=== PATIENT | female | born 2000 | race Caucasian/White ===

== ENCOUNTER 2024-03-19 07:37 | Observation (INO) ==
--- OUTSIDE RECORDS SUMMARY | 2024-03-19 07:47 | External Medical Summary | Summary of Care ---
Author Name Unknown Organization [facility] Address [address] [facility] [place] [address] Phone [phone] Care Team Providers Care Prosthetic Makeup Designer Name Role Phone Unavailable Primary Care Provider Unavailabl e Reason for Referral * Precert (Diagnostic Medical) (Within 10 days (routine)) - Authorized Specialty Diagnoses / Procedures Referred By Contac t Referred To Contact Cardiac Studies Diagnoses Abnormal EKG Procedures ECHO, COMPLETE (2D), TRANS-THORACIC Rosemarie Perez PA-C [address] [employer] [place] [address] Referral ID Status Reason Start Date Expiration Date V isits Requested Visits Authorized [id number] Authorized Precert 03/09/2024 999 999 Reason for Visit * Reason Onset Date Comments Test Results 03/09/2024 Encounter Details Date Type Department Care Team (Late st Contact Info) Description 03/09/2024 Telephone Gynecology/Obstetrics [facility] [address] [place] [address] Rosemarie Perez PA-C [address] [place] [address] Test Results Allergies No known active allergiesdocumented as of this encounter (statuses as of 03/12/2024) Medications Medication Sig Dispensed Refills Start Date End Date Status 28-0.8 MG Oral Tablet Take by mouth. Active Iron-Vitamin C 65-125 MG Oral Tablet (Vitron C)Indications:Antepart um anemia complicating Take 1 Tablet by mouth in the morning and 1 Tablet before bedtime. 60 Tablet 3 12/28/2023 Active documented as of this encounter (statuses as of 03/12/2024) Active Problems Problem Noted Date Diagnosed Date EKG abnormality 03/09/2024 Overview: EKG 03/08/2024 d/t dizziness showed on-specific T wave abnormality CONCLUSIONS: Normal sinus rhythm Nonspecific T wave abnormality Abnormal ECG No previous ECGs available Ventricular Rate: 92 Atrial Rate: 92 ME Interval: 130 QRS Duration: 84 QT/QTc: 350/432 ms P-R-T Hungry Horse: 33 : 49 : -8 degrees Ask a doc to Cardiology sent. Following recommendations: The minor nonspecific T wave abnormalities on the ECG of 03/08/24 do not, in and of themselves, warrant any specific follow up. However out of abundance of caution would get echocardiogram. Awaiting patient response to order echocardiogram in follow up. GBS (group B streptococcus) infection 03/02/2024 Overview: GBS positive 02/2024 Antepartum anemia complicating 024 Overview: Hgb 11.5 at 27 weeks. Started Vitron C BID. CBC at 32 weeks Abnormal glucose tolerance in 12/28/19 24 Overview: Failed 1 hour gtt Needs 3 hour gtt screening for malformation using ultra sonics 11/11/2023 Last Assessment & Plan: She presents for a anatomy survey and echocardiogram. Her fiance has a history of Marfan syndrome and she is s/p genetic counseling (please see separate documentation for additional information). Labs reviewed: -- cffDNA low risk for aneuploidy We reviewed the results of today's ultrasound. The estimated weight is appropriate for gestational age. The visualized anatomy is unremarkable in appearance. There are no cardiac abnormalities appreciated in the images obtained. The amniotic fluid amount appears normal. We discussed that ultrasound is not able to identify all anomalies, but it is reassuring that no anomalies were seen today. We reviewed that there are some case reports of third trimester cardiac findings associated with Marfan syndrome, but otherwise diagnosis centers around genetic testing, which she plans to defer to after delivery. We will plan a follow-up ultrasound at about 35 weeks. Rh negative status during 08/16/2023 Normal 08/15/2023 Family history of Marfan syndrome 08/15/2023 Overview: FOB, met with genetics. MFM referral initiated. - Patient elected NIPT/cffDNA screening. - CVS and amniocentesis were declined. - Patient is interested in having her child tested for Marfan syndrome after through the pediatric genetics clinic. - Recommend anatomy ultrasound around 20 weeks gestation. This is not yet scheduled. - Recommend echocardiogram due to the association of cardiac defects with Marfan syndrome. - Recommend the patient be offered MSAFP-only screening through the educational advisor's office, at 15-22 weeks gestation (preferably 15-18 weeks), to help screen for open neural tube defects. - Yari declines carrier screening today. Last Assessment & Plan: The anatomy that was visualized appears unremarkable and the overall estimated weight is consistent with the 32nd percentile for the gestational age. Idiopathic scoliosis 01/02/2015 Estimated Date of Delivery Comme nts Yes 03/22/2024 Based on last me nstrual period of 06/16/2023 (Approximate) documented as of this encounter (statuses as of 03/12/2024) Immunizations Name Administration Dates Next Due DTP Vaccine 01/26/2006, 2,04/19/2001,02/15,2000 HIB PRP-OMP, 3 dose (Pedvax) 09/25/2001,02/16/20 01,2000 Hepatitis B, 0-19 yrs 09/25/2001,02/15/2001,09/05 IPV - Polio Virus Vaccine (Inact) 2005,01/10/2002,02/15/2001,12/20 MMR - Measles/Mumps/Rubella Vaccine 01/26/2006,0 09/25/2001 Meningococcal Conjugate Vacc ine (Menactra/Menveo) 04/24/2013 Pneumococcal Conjugate Vacc, 13 Valent (Prevnar) 01/08/2003,04/19/2001,02/15/2001,12/20 Seasonal Influenza, PF, 6 M & above, IM , (FluLaval or Fluzone) 04/05/2023 TDAP (age 10 and older)(Boostrix) 12/26/2023, Varicella Vaccine (Chicken Pox) 01/29/2011,09/25 documented as of this encounter Social History Tobacco Use Types Packs/Day Years Used Date Smoking Tobacco: Never Smokeless Tobacco: Never Alcohol Use Standard Drinks/Week Comments Not Currently 0 (1 standard drink = 0.6 oz pur e alcohol) occ Hunger Vital Sign Answer Date Recorded Within the past 12 months, y ou worried that your food would run out before you got the money to buy more. Never true 02/17/20 24 Within the past 12 months, t he food you bought just didn't last and you didn't have money to get more. Never true 02/17/2024 [place] Depression Scale Answer Date Recorded [place] Depression Scale Total 0 02/17/2024 The thought of harming myself has occurred to me . Never 02/17/2024 Childcare Answer Date Recorded Do you feel overwhelmed with taking care of a child, family member or friend? No 02/17/2024 Does your family need help f inding childcare? (Household - for ages 0-17 years) Not on file 02/17/2024 Clothing Answer Date Recorded Have you been unable to get clothing when it was really needed? No 02/17/2024 Is your family able to get c lothes or diapers when needed? (Household - for ages 0-17 years) Not on file 02/17/2024 Personal Safety Answer Date Recorded Do you feel unsafe or have concerns for your saf ety? No 02/17/2024 Do you have concerns for you r family's safety? (Household - for ages 0-17 years) Not on file 02/17/2024 Utilities Answer Date Recorded Do you have trouble paying y our heating, water, or electric bill? No 02/17/2024 Is your family able to pay t he heat, water, or electric bill? (Household - for ages 0-17 years) Not on file 02/17/2024 Does your family have access to good internet? (Household - for ages 0-17 years) Not on file 02/17/2024 Employment Status Answer Date Recorded Are you unemployed or without regular income? No 02/17/2024 Does the household have a re gular source of income? (Household - for ages 0-17 years) Not on file 02/17/2024 Social Connections Answer Date Recorded How often do you feel lonely or isolated from th ose around you? Never 02/17/2024 Financial Resource Strain Answer Date R ecorded Do you have any trouble payi ng for your medications, or do you think you might in the future? No 02/17/2024 Does your family have troubl e paying for medicine? (Household - for ages 0-17 years) Not on file 02/17/2024 Transportation Needs Answer Date Record ed Do you have trouble getting a ride to medical visits or work? (Adult - for ages 18 years and over) Not on file 02/17/2024 Does your family have a hard time getting a ride to doctors visits? (Household - for ages 0-17 years) Not on file 02/17/2024 Has lack of transportation k ept you from medical appointments, meetings, work, or from getting things needed for daily living? Check all that apply. No 02/17/2024 Do you (or your family) have trouble finding or paying for a ride (transportation)? (Household - for ages 0-17 years) Not on file 02/17/2024 Housing Stability Answer Date Recorded Do you currently live in a s helter or have no steady place to sleep at night? No 02/17/2024 Do you think you are at risk of becoming homeless? (Adult - for ages 18 years and over) Not on file 02/17/2024 Does your family worry about paying for your home or becoming homeless? (Household - for ages 0-17 years) Not on file 0 02/17/2024 Are you homeless or worried that you might be in the future? No 02/17/2024 Are you (or your family) kristen eless or worried that you might be in the future? (Household - for ages 0-17 years) Not on file Food Insecurity Answer Date Recorded Do you need food for this week? No 02/17/2024 Are you able to get enough f ood for your family? (Household - for ages 0-17 years) Not on file 02/17/2024 Does your family need food t his week? (Household - for ages 0-17 years) Not on file 02/17/2024 Do you always have enough fo od for your family? (Household - for ages 0-17 years) Not on file 02/17/2024 Estimated Date of Delivery Comme nts Yes 03/22/2024 Based on last me nstrual period of 06/16/2023 (Approximate) Sex and Gender Information Value Date Recorded Sex Assigned at Female 01/18/2023 11:30 AM EDT Gender Identity Female 01/18/2023 11:30 AM EDT Sexual Orientation Straight 01/18/2023 11 :30 AM EDT Job Start Date Occupation Industry Not on file Not on file Not on file documented as of this encounter Miscellaneous Notes * Telephone Encounter - Jayme Blair OSA - 03/12/2024 9:08 AM EDT Patient is scheduled on: 03/13/2024 Status: Evaristo Time: 2:00 PM Length: 60 Visit Type: ECHOCARDIOGRAM [[id number]] Reg Status: Verified Copay: $0.00 Provider: DILIP ALVARADO * Telephone Encounter - Jayme Blair OSA - 03/09/2024 1:19 PM EDT Please advise, patient is being induced on 03/19, and the provider is requesting an ECHO before. Please advise, thank you. * Telephone Encounter - Sadaf Figueroa OSA - 03/09/2024 1:15 PM EDT Nothing pulling for me until 03-19 and patient is scheduled to deliver that day. Please assist in asooner appointment time if able. Thank you! * Telephone Encounter - Rosemarie Perez PA-C - 03/09/2024 12:53 PM EDT Sadaf, please assist in scheduling patient for ECHO as soon as possible. Should have prior to delivery. Currently scheduled for IOL 03/19/2024. * Telephone Encounter - Gisela Duarte LPN - 03/09/2024 12:49 PM EDT Pt called back and said she is agreeable to do the echo. * Telephone Encounter - Gisela Duarte LPN - 03/09/2024 12:33 PM EDT Called pt lm to return call * Telephone Encounter - Rosemarie Perez PA-C - 03/09/2024 12:21 PM EDT Please let patient know that her EKG showed normal rhythm but did return abnormal d/t non-specific T wave abnormality. I reach out to Cardiology they stated that this specific abnormality in itself does not warrant anyspecific follow up but did recommend a echocardiogram out of abundance of caution ahead of delivery. If she is agreeable to this, will place order for ECHO. Rosemarie Perez PA-C documented in this encounter Plan of Treatment Upcoming Encounters Date Type Department Care Team (Late st Contact Info) Description 03/13/2024 2:00 PM EDT [facility] [address] [place] [id number] 03/16/2024 11:30 AM EDT Office Visit Gynecology/Obstetrics Dary Velazquez [address] [facility] [place] [address] Leonardo Xavier MD [address] [place] [address] Scheduled Orders Name Type Priority Associated Diagnoses Orde r Schedule ECHO, COMPLETE (2D), TRANS-THORACIC Echocardiology Routine Abnormal EKG Expected: 03/09/2024, Expires: 04/09/2026 Health Maintenance Due Date Last Done Comments Depression Screening 2012 HPV (Gardasil) Vaccine (1 - 3-dose series) 09/22/2015 COVID-19 Vaccine ( - 2023-2 5 season) 2024 Influenza Vaccine (FLU shot) (#1) 2024 023 Gonorrhea / Chlamydia Screen 08/14/2024 08/15/2023, 11/29/2022 Pap Smear 08/14/2026 08/15/2023 DTap/Tdap Vaccines (8 - Td o r Tdap) 12/25/2033 12/26/2023, 04/24/2013, 01/26/2006, Additional history exists Hepatitis B Vaccine Completed 09/25/2001, 02/15/2001, 2000 Pneumococcal Vaccine: Pediat rics (0 to 5 Years) and At-Risk Patients (6 to 64 Years) Completed 01/08/2003, 04/19/2001, 02/15/2001, Additional history exists MENINGOCOCCAL (MENACTRA/MENVEO) Completed 7, 04/24/2013 documented as of this encounter Medical Devices Not on filedocumented as of this encounter Visit Diagnoses Diagnosis Abnormal EKG- Primary Nonspecific abnormal electrocardiogram (ECG) (EKG) documented in this encounter
--- OUTSIDE RECORDS SUMMARY | 2024-03-19 07:47 | External Medical Summary | Summary of Care ---
Author Name Unknown Organization [facility] Address [address] [facility] [place] [address] Phone [phone] Care Team Providers Care Solder Making Laborer Name Role Phone Unavailable Primary Care Provider Unavailabl e Reason for Visit * Reason Comments Return Visit Encounter Details Date Type Department Care Team (Late st Contact Info) Description 03/07/2024 9:45 AM EDT Office Visit Gynecology/Obstetric s Dary Velazquez [address] [place] [address] Kelly Ureña CRNP [address] [place] [address] Normal in third trimester*; Family history of Marfan syndrome; Rh negative, antepartum; screening for malformation using ultrasonics; Antepartum anemia complicating ; Abnormal glucose tolerance in ; GBS (group B streptococcus) infection Allergies No known active allergiesdocumented as of this encounter (statuses as of 03/07/2024) Medications Medication Sig Dispensed Refills Start Date End Date Status 28-0.8 MG Oral Tablet Take by mouth. Active Iron-Vitamin C 65-125 MG Oral Tablet (Vitron C)Indications:Antepart um anemia complicating Take 1 Tablet by mouth in the morning and 1 Tablet before bedtime. 60 Tablet 3 12/28/2023 Active documented as of this encounter (statuses as of 03/07/2024) Active Problems Problem Noted Date Diagnosed Date GBS (group B streptococcus) infection 03/02/2024 Overview: [...] patient be offered MSAFP-only screening through the environmental manager's office, at 15-22 weeks gestation (preferably 15-18 [...] as of this encounter (statuses as of 03/07/2024) Immunizations Name Administration Dates Next Due DTP [...] money to get more. Never true 02/17/2024 [place] Depression Scale Answer Date Recorded [place] Depression Scale Total 0 02/17/2024 The thought [...] 02/17/2024 Does the household have a re lar source of income? (Household - for ages [...] on file documented as of this encounter Last Filed Vital Signs Vital Sign Reading Time Taken Comments Blood Pressure 120/86 03/07/2024 9:36 AM EDT Pulse - - Temperature - - Respiratory Rate - - Oxygen Saturation - - Inhaled Oxygen Concentration - - Weight 74.6 kg (164 lb 6.4 oz) 03/07/2024 9:36 A M EDT Height - - Body Mass Index 28.22 02/29/2024 11:07 AM EDT documented in this encounter Progress Notes * Kelly Ureña CRNP - 03/07/2024 9:54 AM EDT 37w6d Has had intermittent contractions the past 2 days. Not timeable. Suspect she is not well hydrated, as she states she doesn't really like water and eats ice all day long for hydration. Asking for cervical check. Baby is active. Denies bleeding or LOF. Size>dates. Has followed with MFM and has had normal growth. Last week had growth u/s ordered, is scheduled for tomorrow. Occupational Health Specialist Documentation Provider requested textile supervisor. Name of textile supervisor: Maggie * Maggie Rivers CMA - 03/07/2024 9:36 AM EDT 37w6d + contractions, started Tuesday. Worsened yesterday. Still clemencia today. + nausea/headache Increase in discharge Swelling in both ankles Requesting cervical check today documented in this encounter Plan of Treatment Upcoming Encounters Date Type Department Care Team (Late st Contact Info) Description 03/08/2024 9:15 AM EDT Cardiac Studies Cardiac Studies, [place] [address] [place] [address] 03/08/2024 9:45 AM EDT Imaging Radiology [facility] 2nd Floor, [place] [address] [place] [address] 03/15/2024 2:15 PM EDT Office Visit Gynecology/Obstetrics [facility] [place] [address] Kelly Ureña CRNP [address] [place] [address] Health Maintenance Due Date Last Done Comments Depression Screening 2012 HPV (Gardasil) Vaccine (1 - 3-dose series) 09/22/2015 COVID-19 Vaccine (2023-2 5 season) 2024 Influenza Vaccine (FLU shot) [...] as of this encounter Visit Diagnoses Diagnosis Normal in third trimester- Primary Family history of Marfan syndrome Rh negative, antepartum Rhesus isoimmunization affecting management of mother, antepartum condition screening for malformation using ultrasonics Encounter for routine screening for malformation using ultrasonics Antepartum anemia complicating Anemia, antepartum Abnormal glucose tolerance in GBS (group B streptococcus) infection Streptococcus infection in conditions classified elsewhere and of unspecified site, group B documented in this encounter
--- OUTSIDE RECORDS SUMMARY | 2024-03-19 07:47 | External Medical Summary | Summary of Care ---
Author Name Unknown Organization [facility] Address [address] [place] [address] Phone [phone] Care Team Providers Care Sky Line Yarder Name Role Phone Unavailable Primary Care Provider Unavailabl e Reason for Visit * Reason Onset Date Comments Industrial Recruiter Documentation 08/22/2023 Healthy Activity Advance Directive Encounter Details Date Type Department Care Team (Late st Contact Info) Description 08/22/2023 Telephone Care Management, [place] [address] [place] [address] Marlyn Kathleen, [facility] Industrial Recruiter Documentation (2023 Health... Allergies No known active allergiesdocumented as of this encounter (statuses as of 02/24/2024) Medications Medication Sig Dispensed Refills Start Date End Date Status 28-0.8 MG Oral Tablet Take by mouth. Active documented as of this encounter (statuses as of 02/24/2024) Active Problems Problem Noted Date Diagnosed Date Antepartum anemia complicating 024 Overview: Hgb 11.5 [...] patient be offered MSAFP-only screening through the tax specialist's office, at 15-22 weeks gestation (preferably 15-18 [...] as of this encounter (statuses as of 02/24/2024) Immunizations Name Administration Dates Next Due DTP Vaccine 01/26/2006, 2,04/19/2001,02/15,2000 HIB PRP-OMP, 3 dose (Pedvax) 09/25/2001,02/16/20 01,2000 Hepatitis B, 0-19 yrs 09/25/2001,02/15/2001,2 12/2000 IPV - Polio Virus Vaccine (Inact) 2005,01/10/2002,02/15/2001,12/20 [...] money to get more. Never true 02/17/2024 [place] Depression Scale Answer Date Recorded [place] Depression Scale Total 0 02/17/2024 The thought [...] as of this encounter Miscellaneous Notes * ACP (Advance Care Planning) - Marlyn Kathleen, SHAHEED - 08/22/2023 8:28 AM EDT Images from the original note were not included. Advance Care Planning Patient-centered Communication 08/22/2023 The patient/surrogate voluntarily agreed to participate in advance care planning discussion. Addendum 01/17/24: Yari completed a 2023 Healthy Activity/Advance Directive questionnaire and CHANGED her preference for Health Care Drain Tile Machine Operator from her father to her FIANCE, KUSHAL EMILIA stating "I believe he would do what is in my best interest". I have reached out to Yari via email toencourage her to document this in a Durable Health Care Power of Color Coater because under [place] Law, herparents would be her surrogate decision makers and NOT her fiance. Addendum 02/24/24: Yari completed and filed a and 2023 Healthy Activity/Advance Directive questionnaire and noted her father in one, and her fiancee in the other as her preference for HealthCare Drain Tile Machine Operator. I have reached out directly to Yari to assist her in completing an Advance Directive to properly and legally identify her preference. Decisions Additional Comments Synopsis SmartLink Most Recent Value Past ~10 years 08/22/2023 08:29 Additional Comments Additional Comments: Patient completed 2023 [employer] Advance Directive questionnaire. Responses entered below. Patient prefers Franco Shen, as Health Care Drain Tile Machine Operator. Patient willdownload Durable Health Care Power of Color Coater form independently . Video link provided with instructions on how to complete document. 08/22/2023 Patient completed 2023 [employer] Advance Directive questionnaire. Responses entered below. Patient prefers Franco Shen, as Health Care Drain Tile Machine Operator. Patient will download Durable Health Care Power of Color Coater form independently . Video link provided with instructions on how to complete document. Discerning What Matters Most to the Patient: Synopsis SmartLink Most Recent Value Past ~10 years 08/22/2023 08:28 Discerning What Matters Most to the Patient The patient's PRIOR EXPERIENCES: Addendum 02/24/24: "I want extreme measures to be taken" 08/22/2023 Addendum 02/24/24: "I want extreme measures to be taken" The patient considers these as 'UNACCEPTABLE OUTCOMES': Other (define below) 08/22/2023 Other (define below) Other, patient defines as: "Not being able to bathe, feed, or take care of myself" Addendum 01/17/24added: "not being able to breath on my own without life support" Addendum 02/24/24: "Not being able to talk or make my needs known." 08/22/2023 "Not being able to bathe, feed, or take care of myself" Addendum 01/17/24 added: "not being able to breath on my own without life support" Addendum 02/24/24: "Not being able to talk or make my needs known." Source: Content from [employer]pecting Choices Program Aligning Care With What Matters Most: No data to display Rationale for Decisions Source: Content from [employer] Cho[employer] Marlyn Kathleen LCSW documented in this encounter Plan of Treatment Upcoming Encounters Date Type Department Care Team (Late st Contact Info) Description 02/29/2024 11:30 AM EDT Office Visit Gynecology/Obstetrics [facility] [address] [place] [address] Rosemarie Perez PA-C [address] [place] [address] 03/09/2024 4:30 PM EDT Office Visit Gynecology/Obstetrics [facility] [address] [place] [address] Rosemarie Perez PA-C [address] [place] [address] Health Maintenance Due Date Last Done Comments Depression Screening 2012 HPV (Gardasil) Vaccine (1 - 3-dose series) 09/22/2015 COVID-19 Vaccine ( season) 2024 Influenza Vaccine (FLU shot) (#1) 2024 04/05/2023 Gonorrhea / Chlamydia Screen 08/14/2024 08/15/2023, 11/29/2022 Pap Smear 08/14/2026 08/15/2023 DTap/Tdap Vaccines (8 - Td or Tdap) 12/25/2033 12/26/2023, 04/24/2013, 01/26/2006, Additional history exists Hepatitis B Vaccine Completed 09/25/2001, 02/15/2001, 2000 Pneumococcal Vaccine: Pediatrics (0 to 5 Years) and At-Risk Patients (6 to 64 Years) Completed 01/08/2003, 04/19/2001, 02/15/2001, Additional history exists MENINGOCOCCAL (MENACTRA/MENVEO) Aged Out 04/24/2013 No longer eligible based on patient's age to complete this topic documented as of this encounter Medical Devices Not on filedocumented as of this encounter
--- OUTSIDE RECORDS SUMMARY | 2024-03-19 07:47 | External Medical Summary | Summary of Care ---
Author Name Unknown Organization [facility] Address [address] [facility] [place] [address] Phone [phone] Care Team Providers Care Advertising Agency Manager Name Role Phone Unavailable Primary Care Provider Unavailabl e Reason for Visit * Reason Comments Return Visit Encounter Details Date Type Department Care Team (Late st Contact Info) Description 02/29/2024 11:30 AM EDT Office Visit Gynecology/Obstetric s Dary Velazquez [address] [place] [address] Rosemarie Perez PA-C [address] [place] [address] Normal in third trimester*; Family history of Marfan syndrome; Rh negative status during in third trimester; screening for malformation using ultrasonics; Antepartum anemia complicating ; Abnormal glucose tolerance in ; Dizziness; Uterine size date discrepancy Allergies No known active allergiesdocumented as of this encounter (statuses as of 02/29/2024) Medications Medication Sig Dispensed Refills Start Date End Date Status 28-0.8 MG Oral Tablet Take by mouth. Active Iron-Vitamin C 65-125 MG Oral Tablet (Vitron C)Indications:Antepart um anemia complicating Take 1 Tablet by mouth in the morning and 1 Tablet before bedtime. 60 Tablet 3 12/28/2023 Active documented as of this encounter (statuses as of 02/29/2024) Active Problems Problem Noted Date Diagnosed Date Antepartum anemia complicating 024 Overview: Hgb 11.5 at 27 weeks. Started Vitron C BID. CBC at 32 weeks Abnormal glucose tolerance in 12/28/19 Overview: Failed 1 hour gtt Needs 3 [...] patient be offered MSAFP-only screening through the starter mechanic's office, at 15-22 weeks gestation (preferably 15-18 [...] as of this encounter (statuses as of 02/29/2024) Immunizations Name Administration Dates Next Due DTP Vaccine 01/26/2006, 2,04/19/2001,02/15,2000 HIB PRP-OMP, 3 dose (Pedvax) 09/25/2001,02/16/20,2000 Hepatitis B, 0-19 yrs 09/25/2001,02/15/2001,09/05 IPV - [...] money to get more. Never true 02/17/2024 Fletcher Depression Scale Answer Date Recorded Fletcher Depression Scale Total 0 02/17/2024 The thought [...] Sign Reading Time Taken Comments Blood Pressure 122/78 02/29/2024 11:07 AM EDT Pulse - - Temperature - - Respiratory Rate - - Oxygen Saturation - - Inhaled Oxygen Concentration - - Weight 73 kg (161 lb) 02/29/2024 11:07 AM EDT Height 162.6 cm (5' 4") 02/29/2024 11:07 AM EDT Body Mass Index 27.64 02/29/2024 11:07 AM EDT documented in this encounter Progress Notes * Rosemarie Perez PA-C - 02/29/2024 12:08 PM EDT 36w6d Due for GBS collected. Denies VB, LOF. Having BH contractions. Pos fm. Episodes of dizziness, mostly with movement. Denies syncope, presyncope, chest pain or SOB. Feels well hydrated. Anemic Hgb 11.1 as of a month ago. On PO iron. No known cardiac or thyroid issues. TSHnormal as of 12/2023. BP 122/78 | Ht 1.626 m (5' 4") | Wt 73 kg (161 lb) | LMP 06/16/2023 (Approximate) | BMI 27.64 kg/m | BSA 1.82 m Heart: RR no murmurs Lungs: clear to auscultation bilaterally Will order BMP, Magnesium, EKG -- advised follow up with PCP, pt agreeable. Push fluids. ER precautions in meantime. S>D, had growth with MFM 02/15 -- 32%ile. Repeat growth ordered. RTC in 1 week Rosemarie Perez PA-C documented in this encounter Nursing Notes * Eliana Khan LPN - 02/29/2024 11:07 AM EDT 36w6d GBS today Headaches, random episodes of dizziness several times a day. documented in this encounter Plan of Treatment Upcoming Encounters Date Type Department Care Team (Late st Contact Info) Description 03/07/2024 9:45 AM EDT Office Visit Gynecology/Obstetrics Dary Velazquez [address] [place] [address] Kelly Ureña CRNP [address] [place] [address] 03/08/2024 9:15 AM EDT Cardiac Studies Cardiac Studies, [facility] [address] [facility] [place] [address] 03/08/2024 9:45 AM EDT Imaging Radiology [facility] [address] [place] [address] Pending Results Name Type Priority Associated Diagnoses Date /Time GROUP B STREP CULTURE/PCR Lab Routine Normal in third trimester 02/29/2024 11:53 AM EDT Scheduled Orders Name Type Priority Associated Diagnoses Orde r Schedule BASIC METABOLIC PANEL Lab Routine Dizziness Expected: 02/29/2024, Expires: 02/28/2025 MAGNESIUM Lab Routine Dizziness Expected: 02/29/2024, Expires: 02/28/2025 PREG FOLLOW-UP EACH FETUS Medical Imaging Routine Uterine size date discrepancy Expected: 02/29/2024, Expires: 03/30/2025 EKG EKG Routine Dizziness Expected: 02/29/2024 (Approximate), Expires: 03/30/2025 Health Maintenance Due Date Last Done Comments [...] Primary Family history of Marfan syndrome Rh negative status during in third trimester screening for malformation using ultrasonics Encounter for routine screening for malformation using ultrasonics Antepartum anemia complicating Anemia, antepartum Abnormal glucose tolerance in Dizziness Dizziness and giddiness Uterine size date discrepancy Uterine size date discrepancy, antepartum condition or complication documented in this encounter
--- OUTSIDE RECORDS SUMMARY | 2024-03-19 07:47 | External Medical Summary | Summary of Care ---
Author Name Unknown Organization [facility] Address [address] [place] [address] Phone [phone] Care Team Providers Care Auto Emissions Technician Name Role Phone Unavailable Primary Care Provider Unavailabl e Reason for Visit * Reason Comments Outpatient Testing Encounter Details Date Type Department Care Team (Late st Contact Info) Description 02/29/2024 1:00 PM EDT Laboratory Laboratory, [facility] [address] [place] [address] [facility], Lab [address] [place] [address] Dizziness Allergies No known active allergiesdocumented as of [...] patient be offered MSAFP-only screening through the subsorter's office, at 15-22 weeks gestation (preferably 15-18 [...] (Pedvax) 09/25/2001,02/16/20 01,2000 Hepatitis B, 0-19 yrs 09/25/2001,02/15/2001,0412/2000 IPV - Polio Virus Vaccine (Inact) 2005,01/10/2002,02/15/2001,12/20 [...] money to get more. Never true 02/17/2024 Azalea Depression Scale Answer Date Recorded Azalea Depression Scale Total 0 02/17/2024 The thought [...] No 02/17/2024 Does the household have a [facility]? (Household - for ages [...] on file documented as of this encounter Plan of Treatment Upcoming Encounters Date Type Department Care Team (Late st Contact Info) Description 03/07/2024 9:45 AM EDT Office Visit Gynecology/Obstetrics Dary Velazquez [address] [place] [phone] Kelly Ureña CRNP [address] [place] [address] 03/08/2024 9:15 AM EDT [facility] [address] [place] [address] 03/08/2024 9:45 AM EDT Imaging Radiology [facility] 2nd [facility] [place] [address] [place] [address] Pending Results Name Type Priority Associated Diagnoses Date /Time BASIC METABOLIC PANEL Lab Routine Dizziness 02/29/2024 1:01 PM EDT MAGNESIUM Lab Routine Dizziness 02/29/2024 1:01 PM EDT Health Maintenance Due Date Last Done Comments [...] as of this encounter Visit Diagnoses Diagnosis Dizziness Dizziness and giddiness documented in this encounter
--- OUTSIDE RECORDS SUMMARY | 2024-03-19 07:47 | External Medical Summary | Summary of Care ---
Author Name Unknown Organization [facility] Address [address] [facility] [place] [address] Phone [phone] Care Team Providers Care Transcription Specialist Name Role Phone Unavailable Primary Care Provider Unavailabl e Encounter Details Date Type Department Care Team (Late st Contact Info) Description 03/07/2024 Telephone Gynecology/Obstetrics [facility] [address] [place] [address] Rosemarie Perez PA-C [address] [place] [address] Allergies No known active allergiesdocumented as of [...] at 32 weeks Abnormal glucose tolerance in 07/24/20 24 Overview: Failed 1 hour gtt Needs [...] patient be offered MSAFP-only screening through the costume specialist's office, at 15-22 weeks gestation (preferably [...] money to get more. Never true 02/17/2024 [place] Depression Scale Answer Date Recorded [place] Depression Scale Total 0 02/17/2024 The thought [...] No 02/17/2024 Does the household have a [facility] source of income? (Household - for ages [...] encounter Miscellaneous Notes * Telephone Encounter - Eliana Khan LPN - 03/07/2024 3:05 PM EDT Checked with Rosemarie Watson, as you said estimates may not be the best but it is fine to leave her as scheduled for tomorrow. * Telephone Encounter - Rosemarie Perez PA-C - 03/07/2024 2:59 PM EDT She was measuring ahead and appears from OV when seeing Kelly today still measuring ahead. Can you touch base with Rosemarie and ask if unable to complete growth d/t 3 weeks since last? I understand if estimates may not be best, but if impossible can hold on growth for now. If so, could we at least checkAFI and ensure polyhydramnios not cause for S>D. Thanks! Rosemarie Perez PA-C * Telephone Encounter - Eliana Khan LPN - 03/07/2024 2:06 PM EDT Rosemarie, okay to reschedule for next week? * Telephone Encounter - Eliana Khan LPN - 03/07/2024 2:05 PM EDT ----- Message from Rosemarie Armstrong sent at 03/07/2024 1:49 PM EDT ----- This pt is on my schedule for a growth u/s for tomorrow. It is only 3 wks since her prior growth u/s. Is it possible to have her reschedule for next week for more accurate results? Rosemarie ordered the u/s but she is not in the office today or tomorrow. Rosemarie documented in this encounter Plan of Treatment Upcoming Encounters Date Type Department Care Team (Late st Contact Info) Description 03/08/2024 9:15 AM EDT Cardiac Studies Cardiac Studies, [facility] [address] [facility] [place] [address] 03/08/2024 9:45 AM EDT Imaging Radiology [facility] 2nd [facility] [place] [address] [place] [address] 03/15/2024 2:15 PM EDT Office Visit Gynecology/Obstetrics Dary Velazquez [address] [place] [address] Kelly Ureña CRNP [address] [place] [address] Health Maintenance Due Date Last Done Comments [...]
--- OUTSIDE RECORDS SUMMARY | 2024-03-19 07:47 | External Medical Summary ---
Author Name Unknown Address Unknown Organization [id number]:[facility] [facility] [address] [place] [address] Laboratory Report Ordering Provider Test Date Status BRIDGETTE MCFADDEN 02/29/2024 11:53:16 Final Observation Date Value Abnormality Reference (Units ) Status Streptococcus agalactiae DNA [Presence] in Specimen by CAMERON with probe detection 02/29/2024 11:53:16 Positive Abnormal Negative Final Group B Streptococcus detect ed by culture-enhanced PCR (amplified probe). GBS GBSCT - [facility] 02/29/2024 11:53:16 24.8 Final GBS SPCCT - [facility] 02/29/2024 11:53:16 0.0 Final Performing Location LAB[facility]ATORY [facility] - [address] [place] [address]
--- OUTSIDE RECORDS SUMMARY | 2024-03-19 07:47 | External Medical Summary | Summary of Care ---
Author Name Unknown Organization [facility] Address [address] [facility] [place] [address] Phone [phone] Care Team Providers Care Shipping Specialist Name Role Phone Unavailable Primary Care Provider Unavailabl e Reason for Visit * Reason Comments Return Visit Encounter Details Date Type Department Care Team (Late st Contact Info) Description 03/16/2024 11:30 AM EDT Office Visit Gynecology/Obstetric s Dary Velazquez [address] [place] [address] Leonardo Xavier MD [address] [place] [address] Normal in third trimester*; Family history of Marfan syndrome; Rh negative status during in third trimester; screening for malformation using ultrasonics; Antepartum anemia complicating ; Abnormal glucose tolerance in ; GBS (group B streptococcus) infection; EKG abnormality Allergies No known active allergiesdocumented as of this encounter (statuses as of 03/16/2024) Medications Medication Sig Dispensed Refills Start Date End Date Status 28-0.8 MG Oral Tablet Take by mouth. Active Iron-Vitamin C 65-125 MG Oral Tablet (Vitron C)Indications:Antepart um anemia complicating Take 1 Tablet by mouth in the morning and 1 Tablet before bedtime. 60 Tablet 3 12/28/2023 Active documented as of this encounter (statuses as of 03/16/2024) Active Problems Problem Noted Date Diagnosed Date EKG abnormality 03/09/2024 Overview: EKG 03/08/2024 d/t dizziness showed on-specific T wave abnormality CONCLUSIONS: Normal sinus rhythm Nonspecific T wave abnormality Abnormal ECG No previous ECGs available Ventricular Rate: 92 Atrial Rate: 92 [place] Interval: 130 QRS Duration: 84 QT/QTc: 350/432 ms P-R-T [place]: 33 : 49 : -8 degrees Ask a doc to Cardiology sent. Following recommendations: The minor nonspecific T wave abnormalities on the ECG of 03/08/24 do not, in and of themselves, warrant any specific follow up. However out of abundance of caution would get echocardiogram. Echo complete -- normal GBS (group B streptococcus) infection 03/02/2024 Overview: GBS positive 02/2024 Antepartum anemia complicating 024 Overview: Hgb 11.5 at 27 weeks. Started Vitron C BID. CBC at 32 weeks Abnormal glucose tolerance in 12/28/19 24 Overview: Failed 1 hour gtt Needs 3 hour gtt screening for malformation using [employer] 11/11/2023 Last Assessment & Plan: She presents [...] patient be offered MSAFP-only screening through the financial center manager's office, at 15-22 weeks gestation (preferably [...] as of this encounter (statuses as of 03/16/2024) Immunizations Name Administration Dates Next Due DTP [...] money to get more. Never true 02/17/2024 Madison Depression Scale Answer Date Recorded [place] Depression Scale Total 0 02/17/2024 The thought [...] Sign Reading Time Taken Comments Blood Pressure 118/70 03/16/2024 11:16 AM EDT Pulse - - Temperature - - Respiratory Rate - - Oxygen Saturation - - Inhaled Oxygen Concentration - - Weight 73.9 kg (163 lb) 03/16/2024 11:16 AM EDT Height 162.6 cm (5' 4") 03/16/2024 11:16 AM EDT Body Mass Index 27.98 03/16/2024 11:16 AM EDT documented in this encounter Progress Notes * Leonardo Xavier MD - 03/16/2024 11:43 AM EDT Pt doing well No complaint Doing well Evaristo for induction on Tuesday03/19/24 * Gisela Duarte LPN - 03/16/2024 11:17 AM EDT 39w1d Denies any issues documented in this encounter Plan of Treatment Health Maintenance Due Date Last Done Comments [...] elsewhere and of unspecified site, group B EKG abnormality Nonspecific abnormal electrocardiogram (ECG) (EKG) documented in this encounter
--- OUTSIDE RECORDS SUMMARY | 2024-03-19 07:47 | External Medical Summary ---
Author Name Unknown Address Unknown Organization K01:[facility] - [address] [place] [address] Laboratory Report Ordering Provider Test Date Status BRIDGETTE MCFADDEN 02/29/2024 13:01:30 Final Observation Date Value Abnormality Reference (Units ) Status Magnesium 02/29/2024 13:01:30 1.7 1.5-2.6 (m g/dL) Final Performing Location [facility] - [address] [place] [address]
--- OUTSIDE RECORDS SUMMARY | 2024-03-19 07:47 | External Medical Summary ---
Author Name Unknown Address Unknown Organization K01:[facility] [place] - [address] [facility] [address] [facility] [address] Laboratory Report Ordering Provider Test Date Status BRIDGETTE MCFADDEN 02/29/2024 13:01:30 Final Observation Date Value Abnormality Reference (Units ) Status BUN 02/29/2024 13:01:30 7 6-20 (mg/dL) Final Creatinine 02/29/2024 13:01:30 0.7 0.5-1.0 (mg/dL) Final Glomerular filtration rate/1.73 sq M.predicted [Volume Rate/Area] in Serum, Plasma or Blood by Creatinine-based formula (CKD-EPI) 02/29/2024 13:01:30 >90 >=60 (mL/min) Final eGFR is calculated based on the CKD-EPI 2020 equation. Sodium 02/29/2024 13:01:30 138 135-146 (m mol/L) Final Potassium 02/29/2024 13:01:30 4.5 3.5-5.1 (m mol/L) Final Cl 02/29/2024 13:01:30 106 98-107 (mm ol/L) Final CO2 02/29/2024 13:01:30 21 Below low normal 22- 32 (mmol/L) Final Anion gap 02/29/2024 13:01:30 11 7-15 (mmol /L) Final Glucose 02/29/2024 13:01:30 82 70-120 (mg /dL) Final Calcium 02/29/2024 13:01:30 9.5 8.4-10.2 ( mg/dL) Final Performing Location [facility]ORY [facility] [place] - [address] [facility] [address]
--- OUTSIDE RECORDS SUMMARY | 2024-03-19 07:48 | External Medical Summary | Summary of Care ---
Author Name Unknown Organization [facility] Address [address] [facility] [address] Phone [phone] Care Team Providers Care Railroad Baggage Porter Name Role Phone Unavailable Primary Care Provider Unavailabl e Reason for Referral * Evaluate & Treat - Unlimited Visits (Within 3 days (urgent)) - Authorized Specialty Diagnoses / Procedures Referred By Brianne t Referred To Contact Physical Therapy / Physical Medicine And Rehab Diagnoses Back pain affecting , antepartum Ashleigh Garcia CNM [address] [facility] [place] [place] [address] Referral ID Status Reason Start Date Expiration Date Visits Requested Visits Authorized [id number] Authorized Specialty Services Required 01/09/[phone] Question Answer Referral Priority Within 3 days (urgent) Where should this appointment be scheduled? [facility] Reason for Visit * Reason Comments Return Visit Encounter Details Date Type Department Care Team (Late st Contact Info) Description 01/09/2024 9:30 AM EDT Office Visit Gynecology/Obstetric s [facility] [address] [place] [address] Ashleigh Garcia CNM [address] [facility] [place] [id number] Normal intrauterine , antepartum*; Family history of Marfan syndrome; Rh negative, antepartum; screening for malformation using ultrasonics; Antepartum anemia complicating ; Abnormal glucose tolerance in ; Back pain affecting , antepartum Allergies No known active allergiesdocumented as of this encounter (statuses as of 01/09/2024) Medications Medication Sig Dispensed Refills Start Date End Date Status 28-0.8 MG Oral Tablet Take by mouth. Active Nystatin-Triamcinolo ne 966249-5.1 UNIT/GM-% External Cream (Mycolog) Apply topically to affected area 3 times a day. Apply to vulva 15 g 1 12/27/2023 Active Iron-Vitamin C 65-125 MG Oral Tablet (Vitron C)Indications:Antepa rtum anemia complicating Take 1 Tablet by mouth in the morning and 1 Tablet before bedtime. 60 Tablet 3 12/28/2023 Active SendUsToCatchMe! Verio w/Device Kit Use as directed. For testing blood sugars 4 times a day. Fasting, and 3 additional times 1 hour after each meal (breakfast, lunch, dinner). 1 Kit 12/30/2023 Active Volo Broadbanduch VerMileIQ In Vitro Strip (Glucose Blood) For testing blood sugars 4 times a day. Fasting, and 3 additional times 1 hour after each meal (breakfast, lunch, dinner). 100 Strip 12/30/2023 Active Lancets For testing blood sugars 4 times a day. Fasting, and 3 additional times 1 hour after each meal (breakfast, lunch, dinner). 100 Each 12/30/2023 Active documented as of this encounter (statuses as of 01/09/2024) Active Problems Problem Noted Date Diagnosed Date [...] patient be offered MSAFP-only screening through the refrigerated company driver's office, at 15-22 weeks gestation (preferably 15-18 weeks), to help screen for open neural tube defects. - Yari declines carrier screening today. Last Assessment & Plan: She presents for an early assessment. Her fiance has a history of Marfan syndrome and she is s/p genetic counseling (please see separate documentation for additional information). Today's ultrasound notes the following: Single viable intrauterine with biometry consistent with clinical dates. The visualized early anatomy is unremarkable in appearance. Idiopathic scoliosis 01/02/2015 Estimated Date of Delivery Comme nts Yes 03/22/2024 Based on last me nstrual period of 06/16/2023 (Approximate) documented as of this encounter (statuses as of 01/09/2024) Immunizations Name Administration Dates Next Due DTP Vaccine 01/26/2006, 2,04/19/2001,02/15,2000 HIB PRP-OMP, 3 dose (Pedvax) 09/25/2001,09,2000 Hepatitis B, 0-19 yrs 09/25/2001,02/15/2001,09/05 IPV - [...] the money to buy more. Never true 01/19/20 23 Within the past 12 months, t he food you bought just didn't last and you didn't have money to get more. Never true 01/18/2023 Wilsey Depression Scale Answer Date Recorded Last EPDS Total Score Not on file 08/15/2023 The thought of harming myself has occurred to me . Never 08/15/2023 Childcare Answer Date Recorded Do you feel overwhelmed with taking care of a child, family member or friend? No 01/18/2023 Does your family need help f inding childcare? (Household - for ages 0-17 years) Not on file 01/18/2023 Clothing Answer Date Recorded Have you been unable to get clothing when it was really needed? No 01/18/2023 Is your family able to get c lothes or diapers when needed? (Household - for ages 0-17 years) Not on file 01/18/2023 Personal Safety Answer Date Recorded Do you feel unsafe or have concerns for your saf ety? No 01/18/2023 Do you have concerns for you r family's safety? (Household - for ages 0-17 years) Not on file 01/18/2023 Utilities Answer Date Recorded Do you have trouble paying y our heating, water, or electric bill? No 01/18/2023 Is your family able to pay t he heat, water, or electric bill? (Household - for ages 0-17 years) Not on file 01/18/2023 Does your family have access to good internet? (Household - for ages 0-17 years) Not on file 01/18/2023 Employment Status Answer Date Recorded Are you unemployed or without regular income? No 01/18/2023 Does the household have a [facility] source [facility] income? (Household - for ages 0-17 years) Not on file 01/18/2023 Social Connections Answer Date Recorded How often do you feel lonely or isolated from th ose around you? Never 01/18/2023 Financial Resource Strain Answer Date R ecorded Do you have any trouble payi ng for your medications, or do you think you might in the future? No 01/18/2023 Does your family have troubl e paying for medicine? (Household - for ages 0-17 years) Not on file 01/18/2023 Transportation Needs Answer Date Record ed READ ONLY Do you have troubl e getting a ride to medical visits or work? Never True 01/18/2023 Does your family have a hard time getting a ride to doctors visits? (Household - for ages 0-17 years) Not on file 01/18/2023 Has lack of transportation k ept you from medical appointments, meetings, work, or from getting things needed for daily living? Check all that apply. (Adult - for ages 18 years and over) Not on file 01/18/2023 Do you (or your family) have trouble finding or paying for a ride (transportation)? (Household - for ages 0-17 years) Not on file 01/18/2023 Housing Stability Answer Date Recorded Do you currently live in a s helter or have no steady place to sleep at night? No 01/18/2023 READ ONLY Do you think you a re at risk of becoming homeless? No 01/18/2023 Does your family worry about paying for your home or becoming homeless? (Household - for ages 0-17 years) Not on file 0 01/18/2023 Are you homeless or worried that you might be in the future? (Adult - for ages 18 years and over) Not on file Are you (or your family) kristen eless or worried that you might be in the future? (Household - for ages 0-17 years) Not on file Food Insecurity Answer Date Recorded Do you need food for this week? No 01/18/2023 Are you able to get enough f ood for your family? (Household - for ages 0-17 years) Not on file 01/18/2023 Does your family need food t his week? (Household - for ages 0-17 years) Not on file 01/18/2023 Do you always have enough fo od for your family? (Household - for ages 0-17 years) Not on file 01/18/2023 Estimated Date of Delivery Comme nts Yes [...] Sign Reading Time Taken Comments Blood Pressure 118/78 01/09/2024 9:37 AM EDT Pulse - - Temperature - - Respiratory Rate - - Oxygen Saturation - - Inhaled Oxygen Concentration - - Weight 67.9 kg (149 lb 9.6 oz) 01/09/2024 9:37 A M EDT Height - - Body Mass Index 25.68 12/26/2023 9:49 AM EDT documented in this encounter Progress Notes * Maggie Rivers MED ASSIST - 01/09/2024 9:37 AM EDT 29w4d Denies vaginal bleeding/rom + movements Still having tailbone pain. Was suggested PT. Willing to try PT * Ashleigh Garcia CNM - 01/09/2024 9:30 AM EDT Yari Shen is a 23 year old female here for her routine OB appointment at 29w4d Her Estimated Date of Delivery: 03/22/24 REVIEW OF SYSTEMS: She affirms movement. 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 Highest fasting value 96, postprandials all under 130 PHYSICAL EXAM: Filed Vitals: 01/09/24 0937 BP: 118/78 Weight: 67.9 kg (149 lb 9.6 oz) +FHT 140 Fundal height 29 ASSESSMENT/PLAN: No diagnosis found. Supervision of -recommended continuing fingerstick for another week. -- labor precautions and kick counts reviewed - RTO in 2 weeks Ashleigh Garcia CNM documented in this encounter Plan of Treatment Upcoming Encounters Date Type Department Care Team (Late st Contact Info) Description 01/30/2024 8:45 AM EDT Office Visit Gynecology/Obstetrics Dary Velazquez [address] [place] [place] [address] Qi Seals, FAITH, HENRIQUE [address] [place] [address] [place] [address] 02/16/2024 2:30 PM EDT Imaging Maternal Medicine Imaging, Ana Velazquez [facility] [address] [place] [phone] Scheduled Referrals Name Type Priority Associated Diagnoses Orde r Schedule PHYSICAL THERAPY REFERRAL OP Referral Within 3 days (urgent) Back pain affecting , antepartum Ordered: 01/09/2024 Health Maintenance Due Date Last Done Comments Depression Screening 2012 HPV (Gardasil) Vaccine (1 - 3-dose series) 09/22/2015 COVID-19 Vaccine ( season) 2023 Influenza Vaccine (FLU shot) (#1) 2024 04/05/2023 Gonorrhea / Chlamydia Screen 08/14/2024 08/15/2023, 11/29/2022 Pap Smear 08/14/2026 08/15/2023 DTaP,Tdap,and Td Vaccines (8 - Td or Tdap) 12/25/2033 [...] of this encounter Visit Diagnoses Diagnosis Normal intrauterine , antepartum- Primary Family history of Marfan syndrome Rh negative, antepartum Rhesus isoimmunization affecting management of mother, antepartum condition screening for malformation using ultrasonics Encounter for routine screening for malformation using ultrasonics Antepartum anemia complicating Anemia, antepartum Abnormal glucose tolerance in Back pain affecting , antepartum documented in this encounter
--- OUTSIDE RECORDS SUMMARY | 2024-03-19 07:48 | External Medical Summary | Summary of Care ---
Author Name Unknown Organization [facility] Address [address] [facility] [address] Phone [phone] Care Team Providers Care Grade And Center Marker Name Role Phone Unavailable Primary Care Provider Unavailabl e Reason for Referral * Evaluate & Treat - Unlimited Visits (Within 3 days (urgent)) - Authorized Specialty Diagnoses / Procedures Referred By Contjavon t Referred To Contact Physical Therapy / Physical Medicine And Rehab Diagnoses Normal intrauterine , antepartum Qi Martinez DNP, CNM [address] [facility] [place] [address] Referral ID Status Reason Start Date Expiration Date Visits Requested Visits Authorized [id number] Authorized Specialty Services Required 02/15/[phone] Question Answer Referral Priority Within 3 days (urgent) Where should this appointment be scheduled? [facility] Pelvic floor PT prior to Encounter Details Date Type Department Care Team (Late st Contact Info) Description 02/07/2024 Telephone Gynecology/Obstetrics [address] [place] [address] Qi Martinez DNP, CNM [address] [facility] [place] [address] Allergies No known active allergiesdocumented as of this encounter (statuses as of 02/15/2024) Medications Medication Sig Dispensed Refills Start Date End Date Status 28-0.8 MG Oral Tablet Take by mouth. Active Nystatin-Triamcinolo ne 836106-2.1 UNIT/GM-% External Cream (Mycolog) Apply topically to affected area 3 times a day. Apply to vulva 15 g 1 12/27/2023 Active Iron-Vitamin C 65-125 MG Oral Tablet (Vitron C)Indications:Antepa rtum anemia complicating Take 1 Tablet by mouth in the morning and 1 Tablet before bedtime. 60 Tablet 3 12/28/2023 Active EUROBOXToCorporateWorld Verio w/Device Kit Use as directed. For testing blood sugars 4 times a day. Fasting, and 3 additional times 1 hour after each meal (breakfast, lunch, dinner). 1 Kit 12/30/2023 Active EUROBOXTouch Verio In Vitro Strip (Glucose Blood) For testing [...] as of this encounter (statuses as of 02/15/2024) Active Problems Problem Noted Date Diagnosed Date [...] patient be offered MSAFP-only screening through the trimmer buffing wheel's office, at 15-22 weeks gestation (preferably 15-18 [...] Comme nts Yes 03/22/2024 Based on last va nstrual period of 06/16/2023 (Approximate) documented as of this encounter (statuses as of 02/15/2024) Immunizations Name Administration Dates Next Due DTP [...] money to get more. Never true 01/18/2023 [place] Depression Scale Answer Date Recorded Last EPDS [...] y our heating, water, or electric bill? (Adult - for ages 18 years and over) Not on file 01/24/2024 Is your family able to pay t he heat, water, or electric bill? (Household - for ages 0-17 years) Not on file 01/24/2024 Does your family have access to good internet? (Household - for ages 0-17 years) Not on file 01/24/2024 Employment Status Answer Date Recorded Are you unemployed or without regular income? No 01/18/2023 Does the household have a re gular source of income? (Household - for ages 0-17 years) Not on file 01/18/2023 Social Connections Answer Date Recorded How often do you feel lonely or isolated from those around you? (Adult - for ages 18 years and over) Not on file 01/24/2024 Financial Resource Strain Answer Date R ecorded [...] 18 years and over) Not on file 3 Are you (or your family) kristen eless [...] encounter Miscellaneous Notes * Telephone Encounter - Francisca Andres LPN - 02/15/2024 9:45 AM EDT faxed * Addendum Note - Qi Martinez DNP, CNM - 02/15/2024 8:26 AM EDTAddended by: QI MARTINEZ on: 02/15/2024 08:26 AM Modules accepted: Orders * Telephone Encounter - Qi Martinez DNP, CNM - 02/15/2024 8:26 AM EDT Order placed. Thanks! * Telephone Encounter - Gisela Duarte LPN - 02/09/2024 10:08 AM EDT Pt is asking for a referral for pelvic PT. Please review and advise * Telephone Encounter - Jill Arciniega RN - 02/08/2024 3:08 PM EDT T/C from [facility] asking if script could be faxed to [phone] ([place] Office). If script unable to be sent pt. Still requesting call back if script unable to be sent today. * Telephone Encounter - Chichi Dorsey LPN - 02/08/2024 9:37 AM EDT See message below. PT office calling in requesting script. Will see if Ashleigh will put referral in. Call Sophie back if unable to fax script today. [phone] * Telephone Encounter - Francisca Andres LPN - 02/07/2024 3:40 PM EDT Patient called requesting a referral be faxed for pelvic floor PT, her current PT recommended she do this as well but new referral is needed. documented in this encounter Plan of Treatment Upcoming Encounters Date Type Department Care Team (Late st Contact Info) Description 02/16/2024 2:30 PM EDT Imaging Maternal Medicine Imaging, Ana [address] [place] [phone] 02/16/2024 2:30 PM EDT Office Visit Director Process Obstetrics Maternal Medicine, [facility] [address] [facility] [place] [address] Jeyson Quesada MD [address] [facility] [place] [address] 02/17/2024 4:30 PM EDT Office Visit Gynecology/Obstetrics [facility] [address] [facility] [place] [address] Rosemarie Perez PA-C [address] [place] [address] 03/05/2024 8:45 AM EDT Office Visit Gynecology/Obstetrics [facility] [address] [facility] [place] [address] Leonardo Xavier MD [address] [place] [address] Scheduled Referrals Name Type Priority Associated Diagnoses Orde r Schedule PHYSICAL THERAPY REFERRAL OP Referral Within 3 days (urgent) Normal intrauterine , antepartum Ordered: 02/15/2024 Health Maintenance Due Date Last Done Comments Depression Screening 2012 HPV (Gardasil) Vaccine (1 - 3-dose series) 09/22/2015 COVID-19 Vaccine (2022- season) 2024 Influenza Vaccine (FLU shot) (#1) [...] Diagnoses Diagnosis Normal intrauterine , antepartum- Primary documented in this encounter
--- OUTSIDE RECORDS SUMMARY | 2024-03-19 07:48 | External Medical Summary | Summary of Care ---
Author Name Unknown Organization [facility] Address [address] [facility] [address] Phone [phone] Care Team Providers Care Tablet Technician Name Role Phone Unavailable Primary Care Provider Unavailabl e Reason for Referral * Evaluate & Treat - Unlimited Visits (Within 3 days (urgent)) - Authorized Specialty Diagnoses / Procedures Referred By Contjavon t Referred To Contact Physical Therapy / Physical Medicine And Rehab Diagnoses Normal intrauterine , antepartum Qi Martinez DNP, CNM [address] [place] [address] Referral ID Status Reason Start Date Expiration Date Visits Requested Visits Authorized [id number] Authorized Specialty Services Required 02/15/[phone] Question Answer Referral Priority Within 3 days (urgent) Where should this appointment be scheduled? Jose L Noel Pelvic floor PT prior to Encounter Details Date Type Department Care Team (Late st Contact Info) Description 02/07/2024 Telephone Gynecology/Obstetrics [address] [place] [address] Qi Martinez DNP, CNM [address] [place] [address] Allergies No known active allergiesdocumented as of this encounter (statuses as of 02/15/2024) Medications Medication Sig Dispensed Refills Start Date End Date Status 28-0.8 MG Oral Tablet Take by mouth. Active Nystatin-Triamcinolo ne 062641-0.1 UNIT/GM-% External Cream (Mycolog) Apply topically to affected area 3 times a day. Apply to vulva 15 g 1 12/27/2023 Active Iron-Vitamin C 65-125 MG Oral Tablet (Vitron C)Indications:Antepa rtum anemia complicating Take 1 Tablet by mouth in the morning and 1 Tablet before bedtime. 60 Tablet 3 12/28/2023 Active AgennixToDisplayLink Verio w/Device Kit Use as directed. For testing blood sugars 4 times a day. Fasting, and 3 additional times 1 hour after each meal (breakfast, lunch, dinner). 1 Kit 12/30/2023 Active AgennixTouch Verio In Vitro Strip (Glucose Blood) For [...] patient be offered MSAFP-only screening through the perinatal technician's office, at 15-22 weeks gestation (preferably 15-18 [...] Comme nts Yes 03/22/2024 Based on last mt nstrual period of 06/16/2023 (Approximate) documented as [...] money to get more. Never true 01/18/2023 [place] Depression Scale Answer Date Recorded Last EPDS [...] as of this encounter Miscellaneous Notes * Addendum Note - Qi Martinez DNP, [...] asking if script could be faxed to [phone] ([place] Office). If script unable to be sent pt. Still requesting call back if script unable to be sent today. * Telephone Encounter - Chichi Dorsey LPN - 02/08/2024 9:37 AM EDT See message below. PT office calling in requesting script. Will see if Ashleigh will put referral in. Call [place] back if unable to fax script today. [phone] * Telephone Encounter - Francisca Andres LPN [...] EDT Imaging Maternal Medicine Imaging, Ana Velazquez [address] [place] [phone] 02/16/2024 2:30 PM EDT Office Visit Automobile Accessories Salesperson Obstetrics Maternal Medicine, Ana Velazquez [facility] [address] [place] [address] Jeyson Quesada MD [address] [place] [address] 02/17/2024 4:30 PM EDT Office Visit Gynecology/Obstetrics Dary Grubbss [address] [place] [address] Rosemarie Perez PA-C [address] [place] [address] 03/05/2024 8:45 AM EDT Office Visit Gynecology/Obstetrics Dary Velazquez [address] [place] [address] Leonardo Xavier MD [address] [place] [address] Scheduled Referrals Name Type Priority Associated Diagnoses Orde r Schedule PHYSICAL THERAPY REFERRAL OP Referral Within 3 days (urgent) Normal intrauterine , antepartum Ordered: 02/15/2024 Health Maintenance Due Date Last Done Comments Depression Screening 2012 HPV (Gardasil) Vaccine (1 - 3-dose series) 09/22/2015 COVID-19 Vaccine (2022-24 season) 2024 Influenza Vaccine (FLU shot) (#1) [...]
--- OUTSIDE RECORDS SUMMARY | 2024-03-19 07:48 | External Medical Summary | Summary of Care ---
Author Name Unknown Organization [facility] Address [address] [place] [address] Phone [phone] Care Team Providers Care Store Loss Prevention Manager Name Role Phone Unavailable Primary Care Provider Unavailabl e Encounter Details Date Type Department Care Team (Late st Contact Info) Description 01/30/2024 Telephone Gynecology/Obstetrics [facility] [address] [place] [address] Qi Seals, FAITH, CNM [address] [facility] [address] Allergies No known active allergiesdocumented as of this encounter (statuses as of 01/30/2024) Medications Medication Sig Dispensed Refills Start Date End Date Status 28-0.8 MG Oral Tablet Take by mouth. Active Nystatin-Triamcinolo ne 760472-4.1 UNIT/GM-% External Cream (Mycolog) Apply topically to affected area 3 times a day. Apply to vulva 15 g 1 12/27/2023 Active Iron-Vitamin C 65-125 MG Oral Tablet (Vitron C)Indications:Antepa rtum anemia complicating Take 1 Tablet by mouth in the morning and 1 Tablet before bedtime. 60 Tablet 3 12/28/2023 Active OneTouch Verio w/Device Kit Use as directed. For testing blood sugars 4 times a day. Fasting, and 3 additional times 1 hour after each meal (breakfast, lunch, dinner). 1 Kit 12/30/2023 Active OneTouch Verio In Vitro Strip (Glucose Blood) For [...] as of this encounter (statuses as of 01/30/2024) Active Problems Problem Noted Date Diagnosed Date [...] syndrome 08/15/2023 Overview: FOB, met with genetics. M referral initiated. - Patient elected NIPT/cffDNA screening. [...] patient be offered MSAFP-only screening through the catering assistant's office, at 15-22 weeks gestation (preferably 15-18 [...] as of this encounter (statuses as of 01/30/2024) Immunizations Name Administration Dates Next Due DTP [...] money to get more. Never true 01/18/2023 [place] Depression Scale Answer Date Recorded Last EPDS [...] encounter Miscellaneous Notes * Telephone Encounter - Bernarda Hardy RN - 01/30/2024 2:06 PM EDT Patient called and made aware. Patient verbalized understanding. * Telephone Encounter - Bernarda Hardy RN - 01/30/2024 1:39 PM EDT ----- Message from Qi Seals sent at 01/30/2024 1:31 PM EDT ----- Please let pt know to keep on her iron and increasing dietary iron, her Hgb dropped from 11.5 to 11.1. thanks! documented in this encounter Plan of Treatment Upcoming Encounters Date Type Department Care Team (Late st Contact Info) Description 02/16/2024 2:30 PM EDT Imaging Maternal Medicine ImagingAna [address] [place] [phone] 02/17/2024 4:30 PM EDT Office Visit Gynecology/Obstetrics Dary Velazquez [address] [place] [address] Rosemarie Perez PA-C [address] [place] [address] 03/05/2024 8:45 AM EDT Office Visit Gynecology/Obstetrics Dary Velazquez [address] [place] [address] Leonardo Xavier MD [address] [place] [address] Health Maintenance Due Date Last Done Comments Depression Screening 2012 HPV (Gardasil) Vaccine (1 - 3-dose series) 09/22/2015 COVID-19 Vaccine (2022-24 season) 2023 Influenza Vaccine (FLU shot) (#1) [...]
--- OUTSIDE RECORDS SUMMARY | 2024-03-19 07:48 | External Medical Summary | Summary of Care ---
Author Name Unknown Organization [facility] Address [address] [place] [address] Phone [phone] Care Team Providers Care Emblem Drawer In Name Role Phone Unavailable Primary Care Provider Unavailabl e Reason for Visit * Reason Onset Date Comments Contract Administration Manager Documentation 08/22/2023 20 24 Healthy Activity Advance Directive Encounter Details Date Type Department Care Team (Late st Contact Info) Description 08/22/2023 Telephone Care Management, [place] [address] [place] [address] Marlyn Kathleen, [facility] Contract Administration Manager Documentation (2023 Health... Allergies No known active allergiesdocumented as of this encounter (statuses as of 01/17/2024) Medications Medication Sig Dispensed Refills Start Date End Date Status 28-0.8 MG Oral Tablet Take by mouth. Active documented as of this encounter (statuses as of 01/17/2024) Active Problems Problem Noted Date Diagnosed Date [...] patient be offered MSAFP-only screening through the insulation helper's office, at 15-22 weeks gestation (preferably 15-18 [...] as of this encounter (statuses as of 01/17/2024) Immunizations Name Administration Dates Next Due DTP [...] money to get more. Never true 01/18/2023 [place] Depression Scale Answer Date Recorded Last EPDS [...] * ACP (Advance Care Planning) - Marlyn Kathleen LCSW - 08/22/2023 8:28 AM EDT Advance Care Planning Patient-centered Communication 08/22/2023 The patient/surrogate voluntarily agreed to participate in advance care planning discussion. Addendum 01/17/24: Yari completed a 2023 Healthy Activity/Advance Directive questionnaire and CHANGED her preference for Health Care Bias Cutting Machine Operator Vertical from her father to her FIANCE, KUSHAL NIETO stating "I believe he would do what is in my best interest". I have reached out to Yari via email toencourage her to document this in a Durable Health Care Power of Brand Executive because [place] Law, herparents would be her surrogate decision makers and NOT her fiance. Decisions Additional Comments Synopsis SmartLink Most Recent Value Past ~10 years 08/22/2023 08:29 Additional Comments Additional Comments: Patient completed 2023 [place] Advance Directive questionnaire. Responses entered below. Patient prefers Franco Shen, as Health Care Bias Cutting Machine Operator Vertical. Patient willdownload Durable Health Care Power of Brand Executive form independently . Video link provided with instructions on how to complete document. 08/22/2023 Patient completed 2023 [place] Advance Directive questionnaire. Responses entered below. Patient prefers Franco Shen, as Health Care Bias Cutting Machine Operator Vertical. Patient will download Durable Health Care Power of Brand Executive form independently . Video link provided with instructions on how to complete document. Discerning What Matters Most to the Patient: Synopsis SmartLink Most Recent Value Past ~10 years 08/22/2023 08:28 Discerning What Matters Most to the Patient The patient considers these as 'UNACCEPTABLE OUTCOMES': Other (define below) 08/22/2023 Other (define below) Other, patient defines as: "Not being able to bathe, feed, or take care of myself" Addendum 01/17/24added: "not being able to breath on my own without life support" 08/22/2023 "Not being able to bathe, feed, or take care of myself" Addendum 01/17/24 added: "not being able to breath on my own without life support" Source: Content from Respecting Choices Program Aligning Care With What Matters Most: No data to display Rationale for Decisions Source: Content from Respecting Choices Program Marlyn Kathleen LCSW documented in this encounter Plan of Treatment Upcoming Encounters Date Type Department Care Team (Late st Contact Info) Description 01/30/2024 8:45 AM EDT Office Visit Gynecology/Obstetrics [facility] [address] [facility] [place] [address] Qi Seals, FAITH, CNM [address] [place] [address] [place] [address] 02/16/2024 2:30 PM EDT Imaging Maternal Medicine Imaging, [facility] [address] [facility] [place] [address] Health Maintenance Due Date Last Done Comments [...]
--- OUTSIDE RECORDS SUMMARY | 2024-03-19 07:48 | External Medical Summary | Summary of Care ---
Author Name Unknown Organization [facility] Address [address] [facility] [place] [address] Phone [phone] Care Team Providers Care It Compliance Analyst Name Role Phone Unavailable Primary Care Provider Unavailabl e Encounter Details Date Type Department Care Team (Late st Contact Info) Description 01/31/2024 Telephone Gynecology/Obstetrics [facility] [address] [place] [address] Leonardo Xavier MD [address] [place] [address] Allergies No known active allergiesdocumented as of this encounter (statuses as of 01/31/2024) Medications Medication Sig Dispensed Refills Start Date End Date Status 28-0.8 MG Oral Tablet Take by mouth. Active Nystatin-Triamcinolo ne 424118-1.1 UNIT/GM-% External Cream (Mycolog) Apply topically to [...] as of this encounter (statuses as of 01/31/2024) Active Problems Problem Noted Date Diagnosed Date [...] patient be offered MSAFP-only screening through the mailer apprentice's office, at 15-22 weeks gestation (preferably 15-18 [...] as of this encounter (statuses as of 01/31/2024) Immunizations Name Administration Dates Next Due DTP Vaccine 01/26/2006,,04/19/2001,02/15,2000 HIB PRP-OMP, 3 dose (Pedvax) 09/25/2001,02/16/20 01,2000 [...] money to get more. Never true 01/18/2023 [place] Depression Scale Answer Date Recorded Last EPDS [...] encounter Miscellaneous Notes * Telephone Encounter - Gisela Duarte LPN - 01/31/2024 4:05 PM EDT I spoke with Dr Xavier and he said pt needs to elevate LE, get compression hoses and wear them alongwith pushing water. I let pt know to call back if any other symptoms develop or her current symptoms do not get any better with increase the of water, elevating and compression hoses. Pt verbalized understanding * Telephone Encounter - Gisela Duarte LPN - 01/31/2024 3:39 PM EDT Pt called in with Omid LE swelling. Pt works on her feet all night. Pt did have a SANTACRUZ yesterday denies anything today. Pt denies any VB, Lof, Ctxs. Baby is moving well. Pt said she drank 3 - 32 ozs cups of water yesterday and she does not have any compression hoses to wear. I let pt know I will reachout to rn clinical documentation provider and call her back with recommendations. documented in this encounter Plan of Treatment Upcoming Encounters Date Type Department Care Team (Late st Contact Info) Description 02/16/2024 2:30 PM EDT Imaging Maternal Medicine Imaging, [facility] [place] [address] 02/17/2024 4:30 PM EDT Office Visit Gynecology/Obstetrics [address] [place] [address] Rosemarie Perez PA-C [address] [place] [address] 03/05/2024 8:45 AM EDT Office Visit Gynecology/Obstetrics Dary Velazquez [address] [place] [address] Leonardo Xavier MD [address] [place] [address] Health Maintenance Due Date Last Done Comments [...]
--- OUTSIDE RECORDS SUMMARY | 2024-03-19 07:48 | External Medical Summary | Summary of Care ---
Author Name Unknown Organization [facility] Address [address] [place] [address] Phone [phone] Care Team Providers Care Tie Maker Name Role Phone Unavailable Primary Care Provider Unavailabl e Encounter Details Date Type Department Care Team (Late st Contact Info) Description 01/30/2024 Telephone Gynecology/Obstetrics [facility] [address] [place] [address] Qi Seals, FAITH, CNM [address] [facility] [place] [address] Allergies No known active allergiesdocumented as of this encounter (statuses as of 01/30/2024) Medications Medication Sig Dispensed Refills Start Date End Date Status 28-0.8 MG Oral Tablet Take by mouth. Active Nystatin-Triamcinolo ne 343872-4.1 UNIT/GM-% External Cream (Mycolog) Apply topically to [...] patient be offered MSAFP-only screening through the hot head machine operator's office, at 15-22 weeks gestation (preferably 15-18 [...] money to get more. Never true 01/18/2023 [place] Depression Scale Answer Date Recorded Last EPDS [...] 1:39 PM EDT ----- Message from Qi Dill Julesdaysi sent at 01/30/2024 1:31 PM EDT ----- Please let pt know to keep on her iron and increasing dietary iron, her Hgb dropped from 11.5 to 11.1. thanks! documented in this encounter Plan of Treatment Upcoming Encounters Date Type Department Care Team (Late st Contact Info) Description 02/16/2024 2:30 PM EDT Imaging Maternal Medicine Imaging, Ana Velazquez [address] [place] [address] 02/17/2024 4:30 PM EDT Office Visit Gynecology/Obstetrics Dary Velazquez [address] [place] [address] Rosemarie Perez PA-C [address] [place] [address] 03/05/2024 8:45 AM EDT Office Visit Gynecology/Obstetrics Dary Velazquez [address] [place] [address] Leonardo Xavier MD [address] [place] [address] Health Maintenance Due Date Last Done Comments Depression Screening 2012 HPV (Gardasil) Vaccine (1 - 3-dose series) 09/22/2015 COVID-19 Vaccine (1 - 2022-24 season) 2023 Influenza Vaccine (FLU shot) (#1) [...]
--- OUTSIDE RECORDS SUMMARY | 2024-03-19 07:48 | External Medical Summary | Summary of Care ---
Author Name Unknown Organization [facility] Address [address] [place] [address] Phone [phone] Care Team Providers Care Edge Blacker Name Role Phone Unavailable Primary Care Provider Unavailabl e Reason for Visit * Reason Comments Return Visit Encounter Details Date Type Department Care Team (Late st Contact Info) Description 01/30/2024 8:45 AM EDT Office Visit Gynecology/Obstetric s [facility] 132 [facility] [place] [address] Qi Seals, DNP, CN [address] [place] [address] Normal intrauterine , antepartum*; Rh negative, antepartum; Antepartum anemia complicating ; Abnormal glucose tolerance in Allergies No known active allergiesdocumented as of this encounter (statuses as of 01/30/2024) Medications Medication Sig Dispensed Refills Start Date End Date Status 28-0.8 MG Oral Tablet Take by mouth. Active Nystatin-Triamcinolo ne 966102-6.1 UNIT/GM-% External Cream (Mycolog) Apply topically to affected area 3 times a day. Apply to vulva 15 g 1 12/27/2023 Active Iron-Vitamin C 65-125 MG Oral Tablet (Vitron C)Indications:Antepa rtum anemia complicating Take 1 Tablet by mouth in the morning and 1 Tablet before bedtime. 60 Tablet 3 12/28/2023 Active Rollbase (acquired by [employer])Touch Verio w/Device Kit Use as directed. For [...] patient be offered MSAFP-only screening through the enterprise application administrator's office, at 15-22 weeks gestation (preferably 15-18 [...] Vaccine 01/26/2006,,04/19/2001,02/15,2000 HIB PRP-OMP, 3 dose (Pedvax) 09/25/2001,02/16/20,2000 Hepatitis [...] money to get more. Never true 01/18/2023 [place] Depression Scale Answer Date Recorded Last EPDS [...] on file documented as of this encounter Progress Notes * Qi Seals DNP, CNM - 01/30/2024 8:31 AM EDT Yari Shen is a 23 year old female here for her routine OB appointment at 32w4d Her Estimated Date of Delivery: 03/22/24 REVIEW OF SYSTEMS: She affirms movement. Denies vaginal bleeding, LOF, contractions, N/V. Has taken blood sugars for 10 days as she was unable to tolerate 3 hour. 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 Will check for 2 more days then be finished. Has PT 2x/week for scoliosis. PHYSICAL EXAM: There were no vitals filed for this visit. ASSESSMENT/PLAN: (O26.899, Z67.91) Rh negative, antepartum Plan: Rhogam completed 12/25 (O99.019) Antepartum anemia complicating Plan: CBC - Taking Vitron C, order placed for repeat cbc (O99.810) Abnormal glucose tolerance in Plan: Sugars WNL xz 2 weeks Fasting 77-99 After meals 70's-120's Supervision of - Has echo 02-16-24 - Encouraged sturdy maternity belt for back pain and continuing with PT. - labor precautions and kick counts reviewed - RTO in 2 weeks Qi Seals DNP, CNM * Qi Seals DNP, CNM - 01/30/2024 8:29 AM EDT . documented in this encounter Nursing Notes * Gisela Duarte LPN - 01/30/2024 8:20 AM EDT 32w4d Was checking BS for 2 weeks Pt said they were all normal Fasting 77-99 After meals 70's-120's documented in this encounter Plan of Treatment Upcoming Encounters Date Type Department Care Team (Late st Contact Info) Description 02/16/2024 2:30 PM EDT [facility] [address] [place] [address] 02/17/2024 4:30 PM EDT Office Visit Gynecology/Obstetrics [facility] [address] [place] [address] Rosemarie Perez PA-C [address] [place] [address] 03/05/2024 8:45 AM EDT [facility] [address] [place] [address] Leonardo Xavier MD [address] [place] [address] Pending Results Name Type Priority Associated Diagnoses Date /Time CBC Lab Routine Antepartum anemia complicating 01/30/2024 8:55 AM EDT Health Maintenance Due Date Last Done [...] Diagnoses Diagnosis Normal intrauterine , antepartum- Primary Rh negative, antepartum Rhesus isoimmunization affecting management of mother, antepartum condition Antepartum anemia complicating Anemia, antepartum Abnormal glucose tolerance in documented in this encounter
--- OUTSIDE RECORDS SUMMARY | 2024-03-19 07:48 | External Medical Summary | Summary of Care ---
Author Name Unknown Organization [facility] Address [address] [place] [address] Phone [phone] Care Team Providers Care Vegetable Tier Name Role Phone Unavailable Primary Care Provider Unavailabl e Reason for Visit * Reason Comments Outpatient Testing Encounter Details Date Type Department Care Team (Late st Contact Info) Description 01/30/2024 9:00 AM EDT Laboratory Laboratory, [facility] [address] [place] [address] [facility] [address] [place] [address] Arrived Allergies No known active allergiesdocumented as of this encounter (statuses as of 01/30/2024) Medications Medication Sig Dispensed Refills Start Date End Date Status 28-0.8 MG Oral Tablet Take by mouth. Active Nystatin-Triamcinolo ne 338240-5.1 UNIT/GM-% External Cream (Mycolog) Apply topically to [...] patient be offered MSAFP-only screening through the wire drawing machine operator's office, at 15-22 weeks gestation [...] money to get more. Never true 01/18/2023 [place] Depression Scale Answer Date Recorded Last EPDS [...] 2:30 PM EDT Imaging Maternal Medicine Imaging, [facility] [address] [place] [address] 02/17/2024 4:30 PM EDT Office Visit Gynecology/Obstetrics [facility] [address] [place] [address] Rosemarie Perez PA-C [address] [place] [address] 03/05/2024 8:45 AM EDT Office Visit Gynecology/Obstetrics [facility] [address] [place] [address] Leonardo Xavier MD [address] [place] [address] Health Maintenance Due Date Last Done Comments [...]
--- OUTSIDE RECORDS SUMMARY | 2024-03-19 07:48 | External Medical Summary | Summary of Care ---
Author Name Unknown Organization [facility] Address [address] [facility] [place] [address] Phone [phone] Care Team Providers Care Window Shade Cutter Name Role Phone Unavailable Primary Care Provider Unavailabl e Reason for Visit * Reason Onset Date Comments Forms Request 02/16/2024 Encounter Details Date Type Department Care Team (Late st Contact Info) Description 02/16/2024 Telephone Gynecology/Obstetrics [facility] [address] [place] [address] Rosemarie Perez PA-C [address] [place] [address] Forms Request Allergies No known active allergiesdocumented as of this encounter (statuses as of 02/16/2024) Medications Medication Sig Dispensed Refills Start Date End Date Status 28-0.8 MG Oral Tablet Take by mouth. Active Nystatin-Triamcinolo ne 918305-4.1 UNIT/GM-% External Cream (Mycolog) Apply topically to [...] as of this encounter (statuses as of 02/16/2024) Active Problems Problem Noted Date Diagnosed Date [...] patient be offered MSAFP-only screening through the sports management professor's office, at 15-22 weeks gestation (preferably 15-18 [...] as of this encounter (statuses as of 02/16/2024) Immunizations Name Administration Dates Next Due DTP [...] money to get more. Never true 01/18/2023 [place] Depression Scale Answer Date Recorded Last EPDS [...] encounter Miscellaneous Notes * Telephone Encounter - Emperatriz Barnes OSA - 02/16/2024 7:41 AM EDT Forms have been completed, signed, faxed and scanned to pt's chart. documented in this encounter Plan of Treatment Upcoming Encounters Date Type Department Care Team (Late st Contact Info) Description 02/16/2024 2:30 PM EDT Imaging Maternal Medicine Imaging, Ana Velazquez [address] [place] [address] 02/16/2024 2:30 PM EDT Office Visit Expense Analyst [facility]st[facility] [address] [place] [address] Jeyson Quesada MD [address] [place] [address] 02/17/2024 4:30 PM EDT Office Visit Gynecology/Obstetrics Guyedna Velazquez [address] [place] [address] Rosemarie Perez PA-C [address] [place] [address] 03/05/2024 8:45 AM EDT Office Visit Gynecology/Obstetrics Kirstens Velazquez [address] [place] [address] Leonardo Xavier MD [address] [place] [address] Health Maintenance Due Date Last Done Comments Depression Screening 2012 HPV (Gardasil) Vaccine (1 - 3-dose series) 09/22/2015 COVID-19 Vaccine ( - 2023- season) 2024 Influenza Vaccine (FLU shot) (#1) [...]
--- OUTSIDE RECORDS SUMMARY | 2024-03-19 07:48 | External Medical Summary | Summary of Care ---
Author Name Unknown Organization [facility] Address [address] [facility] [place] [address] Phone [phone] Care Team Providers Care Statistical Methods Teacher Name Role Phone Unavailable Primary Care Provider Unavailabl e Reason for Visit * Reason Comments Return Visit Encounter Details Date Type Department Care Team (Late st Contact Info) Description 02/22/2024 8:45 AM EDT Office Visit Gynecology/Obstetric s Dary Velazquez [address] [place] [address] Mariana Cooley CRNP [address] [place] [address] Normal in third trimester*; Family history of Marfan syndrome; Rh negative status during in third trimester; screening for malformation using ultrasonics; Antepartum anemia complicating ; Abnormal glucose tolerance in Allergies No known active allergiesdocumented as of this encounter (statuses as of 02/22/2024) Medications Medication Sig Dispensed Refills Start Date End Date Status 28-0.8 MG Oral Tablet Take by mouth. Active Iron-Vitamin C 65-125 MG Oral Tablet (Vitron C)Indications:Ante anemia complicating Take 1 Tablet by mouth in the morning and 1 Tablet before bedtime. 60 Tablet 3 12/28/2023 Active Nystatin-Triamcino lone 822556-0.1 UNIT/GM-% External Cream (Mycolog) Apply topically to affected area 3 times a day. Apply to vulva 15 g 1 12/27/2023 4 Discontinue d(Medicatio n List Clean Up) OneTouch Verio w/Device Kit Use as directed. For testing blood sugars 4 times a day. Fasting, and 3 additional times 1 hour after each meal (breakfast, lunch, dinner). 1 Kit 12/30/2023 4 Discontinue d(Medicatio n List Clean Up) OneTouch Verio In Vitro Strip (Glucose Blood) For testing blood sugars 4 times a day. Fasting, and 3 additional times 1 hour after each meal (breakfast, lunch, dinner). 100 Strip 12/30/2023 4 Discontinue d(Medicatio n List Clean Up) Lancets For testing blood sugars 4 times a day. Fasting, and 3 additional times 1 hour after each meal (breakfast, lunch, dinner). 100 Each 12/30/2023 4 Discontinue d(Medicatio n List Clean Up) documented as of this encounter (statuses as of 02/22/2024) Active Problems Problem Noted Date Diagnosed Date [...] patient be offered MSAFP-only screening through the waterproof coating machine tender's office, at 15-22 weeks gestation (preferably 15-18 [...] as of this encounter (statuses as of 02/22/2024) Immunizations Name Administration Dates Next Due DTP [...] money to get more. Never true 02/17/2024 [place] Depression Scale Answer Date Recorded [place] Depression Scale Total 0 02/17/2024 The thought [...] Sign Reading Time Taken Comments Blood Pressure 126/76 02/22/2024 8:44 AM EDT Pulse - - Temperature - - Respiratory Rate - - Oxygen Saturation - - Inhaled Oxygen Concentration - - Weight 72.1 kg (159 lb) 02/22/2024 8:44 AM EDT Height - - Body Mass Index 27.29 02/17/2024 4:17 PM EDT documented in this encounter Progress Notes * Mariana Cooley CRNP - 02/22/2024 8:50 AM EDT 35w6d Irregular BH ctx, no leaking/bleeding. Baby moving well. Reviewed labor instructions, when to call. May consider Mirena IUD , brochure provided. Discussed choosing peds. GBS at next visit. TERRY Rossi * Chichi Dorsey LPN - 02/22/2024 8:46 AM EDT 35w6d Denies vaginal bleeding/rom + movement Crow martinez No new concerns documented in this encounter Plan of Treatment Upcoming Encounters Date Type Department Care Team (Late st Contact Info) Description 02/29/2024 11:30 AM EDT Office Visit Gynecology/Obstetrics [facility] [address] [place] [address] Rosemarie Perez PA-C [address] [place] [address] 03/09/2024 4:30 PM EDT Office Visit Gynecology/Obstetrics [facility] [address] [place] [address] Rosemarie Perez PA-C [address] [place] [address] Health Maintenance Due Date Last Done Comments [...]
--- OUTSIDE RECORDS SUMMARY | 2024-03-19 07:48 | External Medical Summary ---
Author Name Unknown Address Unknown Organization [facility] [facility] [address] [place] [id number] Laboratory Report Ordering Provider Test Date Status MICHELLE DE GUZMAN 01/30/2024 08:55:28 Final Observation Date Value Abnormality Reference (Units ) Status WBC, Total 01/30/2024 08:55:28 11.73 Above high normal 4 .00-10.80 (K/uL) Final RBC 01/30/2024 08:55:28 3.93 3.85-5.15 (M/uL) Final Hemoglobin 01/30/2024 08:55:28 11.1 Below low normal 12 .0-15.3 (g/dL) Final HCT 01/30/2024 08:55:28 35.1 Below low normal 36. 0-45.2 (%) Final MCV 01/30/2024 08:55:28 89.3 81.5-97.5 (fL) Final MCH 01/30/2024 08:55:28 28.2 27.0-34.0 (pg) Final MCHC 01/30/2024 08:55:28 31.6 32.0-36.0 (g/dL) Final RDW 01/30/2024 08:55:28 13.3 11.5-15.5 (%) Final Platelets 01/30/2024 08:55:28 294 140-400 (K /uL) Final MPV 01/30/2024 08:55:28 10.4 6.6-11.1 ( fL) Final Performing Location [facility] [address] [place] [id number]
--- OUTSIDE RECORDS SUMMARY | 2024-03-19 07:48 | External Medical Summary | Summary of Care ---
Author Name Unknown Organization [facility] Address [address] [facility] [place] [address] Phone [phone] Care Team Providers Care Supervisor Dehydrogenation Name Role Phone Unavailable Primary Care Provider Unavailabl e Reason for Visit * Reason Comments Return Visit Encounter Details Date Type Department Care Team (Late st Contact Info) Description 02/17/2024 4:30 PM EDT Office Visit Gynecology/Obstetric s Dary Velazquez [address] [place] [address] Rosemarie Perez PA-C [address] [place] [address] Normal in third trimester*; Family history of Marfan syndrome; Rh negative status during in third trimester; screening for malformation using ultrasonics; Antepartum anemia complicating ; Abnormal glucose tolerance in Allergies No known active allergiesdocumented as of this encounter (statuses as of 02/17/2024) Medications Medication Sig Dispensed Refills Start Date End Date Status 28-0.8 MG Oral Tablet Take by mouth. Active Nystatin-Triamcinolo ne 663703-9.1 UNIT/GM-% External Cream (Mycolog) Apply topically to [...] (breakfast, lunch, dinner). 1 Kit 12/30/2023 Active DymantTouch Verio In Vitro Strip (Glucose Blood) For [...] as of this encounter (statuses as of 02/17/2024) Active Problems Problem Noted Date Diagnosed Date [...] patient be offered MSAFP-only screening through the cellar supervisor's office, at 15-22 weeks gestation (preferably 15-18 [...] as of this encounter (statuses as of 02/17/2024) Immunizations Name Administration Dates Next Due DTP [...] money to get more. Never true 02/17/2024 [place] Depression Scale Answer Date Recorded Last EPDS [...] Sign Reading Time Taken Comments Blood Pressure 124/78 02/17/2024 4:17 PM EDT Pulse - - Temperature - - Respiratory Rate - - Oxygen Saturation - - Inhaled Oxygen Concentration - - Weight - - Height 162.6 cm (5' 4") 02/17/2024 4:17 PM EDT Body Mass Index - - documented in this encounter Progress Notes * Rosemarie Perez PA-C - 02/17/2024 4:30 PM EDT 35w1d Reviewed BG with patient. Has tracked for nearly 12 days. 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 Only two elevated fasting above 95. No 1 hour after meals that are elevated. Not GDM by this. Increase pain low in abdomen starting today. Unsure if related to baby's position. Denies LOF, VB, contractions. Baby is active. Heart rate elevated in 180's with doppler while baby active visibly moving. Then down to 140 bpm. NST completed. ASSESSMENT assessment with Non-stress Test completed on 02/17/2024 at 35.1 weeks gestation for indicationof concerns for tachycardia, contractions. heart baseline: 130 bpm Variability: Moderate Decelerations: absent Accelerations: present Contractions: None NST start time: 16:44 NST stop time: 17:07 NST strip reviewed, interpreted, and approved by OB provider, Rosemarie Perez PA-C and Dr. Xavier. NST strip stored in clinic storage file Discussed rest for pain. Work note given for tomorrow. Labor precautions. Call if pain worsens. RTC in 1 week Rosemarie Perez PA-C documented in this encounter Nursing Notes * Eliana Khan LPN - 02/17/2024 4:19 PM EDT 35w1d documented in this encounter Plan of Treatment Upcoming Encounters Date Type Department Care Team (Late st Contact Info) Description 02/22/2024 8:45 AM EDT Office Visit Gynecology/Obstetrics [facility] [address] [place] [address] Mariana Cooley CRNP [address] [place] [address] 02/29/2024 11:30 AM EDT Office Visit Gynecology/Obstetrics [facility] [address] [place] [address] Rosemarie Perez PA-C [address] [place] [address] 03/05/2024 8:45 AM EDT Office Visit Gynecology/Obstetrics [facility] [address] [place] [address] Leonardo Xavier MD [address] [place] [address] 03/09/2024 4:30 PM EDT Office Visit Gynecology/Obstetrics [facility] [address] [place] [address] Rosemarie Perez PA-C [address] [place] [address] Health Maintenance Due Date Last Done Comments [...]
--- OUTSIDE RECORDS SUMMARY | 2024-03-19 07:48 | External Medical Summary | Summary of Care ---
Author Name Unknown Organization [facility] Address [address] [facility] [place] [address] Phone [phone] Care Team Providers Care Tank Tender Name Role Phone Unavailable Primary Care Provider Unavailabl e Reason for Visit * Reason Onset Date Comments Test Results 12/28/2023 Encounter Details Date Type Department Care Team (Late st Contact Info) Description 12/28/2023 Telephone Gynecology/Obstetrics [facility] Velazquez [address] [place] [address] Rosemarie Perez PA-C [address] [place] [phone] Test Results Allergies No known active allergiesdocumented as of this encounter (statuses as of 12/30/2023) Medications Medication Sig Dispensed Refills Start Date End Date Status 28-0.8 MG Oral Tablet Take by mouth. Active Nystatin-Triamcinolo ne 884463-8.1 UNIT/GM-% External Cream (Mycolog) Apply topically to [...] as of this encounter (statuses as of 12/30/2023) Active Problems Problem Noted Date Diagnosed Date [...] patient be offered MSAFP-only screening through the chief console operator's office, at 15-22 weeks gestation (preferably [...] as of this encounter (statuses as of 12/30/2023) Immunizations Name Administration Dates Next Due DTP [...] money to get more. Never true 01/18/2023 [place] Depression Scale Answer Date Recorded Last EPDS [...] encounter Miscellaneous Notes * Addendum Note - Rosemarie Perez PA-C - 12/30/2023 7:47 AM EDTAddended by: ROSEMARIE PEREZ on: 12/30/2023 07:47 AM Modules accepted: Orders * Telephone Encounter - Rosemarie Perez PA-C - 12/30/2023 7:42 AM EDT Canceling 3 hour gtt. Supply sent to pharmacy for her to start testing. Sent myG with instructions. * Telephone Encounter - Chichi Dorsey LPN - 12/29/2023 1:04 PM EDT Spoke to pt and she would like to do finger sticks instead of trying the 3hr gtt again. Pharmacy updated. Please send supplies. Pt aware to check 4x daily and to keep log with readings. * Telephone Encounter - Rosemarie Perez PA-C - 12/29/2023 12:15 PM EDT Pt got sick during 3 hour gtt. Can you call patient and ask if she wants to try and repeat 3 hour gtt or instead check BG with finger sticks? For finger sticks it would be 4 times a day for 2 weeks, but can be used as alternative if she doesn't feel can tolerate 3 hour testing. Please route back to me if still want 3 hour gtt and will sign. * Addendum Note - Kerwin Hernandez CMA - 12/29/2023 8:46 AM EDTAddended by: KERWIN HERNANDEZ on: 12/29/2023 08:46 AM Modules accepted: Orders * Telephone Encounter - Kerwin Hernandez CMA - 12/29/2023 8:41 AM EDT Call received from lab @[facility]. Pt got sick during 3hr GTT. Please place order again. Pt aware to reschedule * Telephone Encounter - Adriana Modi RN - 12/28/2023 3:25 PM EDT GLUCOSE - [facility] Date/Time Value Ref Range Status 10/14/2023 07:52 AM 83 70 - 120 mg/dL Final Patient notified of abnormal glucola. The order has been placed in epic. Patient. advised to be NPO after 10pm the night before the test.The patient must stay on the premises for the entire time of the test. Patient counseled to take something to eat for after testing. [facility] Pt aware of need for iron. Pt aware and will start. * Telephone Encounter - Adriana Modi RN - 12/28/2023 1:04 PM EDT left message for patient to call office * Telephone Encounter - Rosemarie Perez PA-C - 12/28/2023 9:07 AM EDT Please make her aware: she did not pass 1 hour gtt, need to complete 3 hour gtt. Please given instructions with fasting. Her labs also showed slightly anemic. Should start twice daily oral iron pill. She should try to take aware from . May cause constipation, can take Colace if occurs. May darken stools. We canrecheck CBC at 32 weeks. I sent oral iron to pharmacy for her. Rosemarie Perez PA-C documented in this encounter Plan of Treatment Upcoming Encounters Date Type Department Care Team (Late st Contact Info) Description 01/09/2024 9:30 AM EDT Office Visit Gynecology/Obstetrics [facility] [address] [place] [address] Ashleigh Garcia CNM [address] [place] [address] 02/16/2024 2:30 PM EDT Imaging Maternal Medicine Imaging, [facility] [address] [place] [address] Health Maintenance Due Date Last Done [...] as of this encounter Visit Diagnoses Diagnosis Antepartum anemia complicating - Primary Anemia, antepartum Abnormal glucose tolerance in documented in this encounter
--- OUTSIDE RECORDS SUMMARY | 2024-03-19 07:48 | External Medical Summary | Summary of Care ---
Author Name Unknown Organization [facility] Address [address] [place] [address] Phone [phone] Care Team Providers Care Security Public Safety Officer Name Role Phone Unavailable Primary Care Provider Unavailabl e Encounter Details Date Type Department Care Team (Late st Contact Info) Description 02/16/2024 2:30 PM EDT Office Visit [facility] Obstetrics [facility]aternal [facility], [address] [place] [address] Jeyson Quesada MD [address] [place] [address] Family history of Marfan syndrome* Allergies No known active allergiesdocumented as of this encounter (statuses as of 02/22/2024) Medications Medication Sig Dispensed Refills Start Date End Date Status 28-0.8 MG Oral Tablet Take by mouth. Active Iron-Vitamin C 65-125 MG Oral Tablet (Vitron C)Indications:Ante anemia complicating Take 1 Tablet by mouth in the morning and 1 Tablet before bedtime. 60 Tablet 3 12/28/2023 Active Nystatin-Triamcino lone 988413-3.1 UNIT/GM-% External Cream (Mycolog) Apply topically to affected area 3 times a day. Apply to vulva 15 g 1 12/27/2023 4 Discontinue d(Medicatio n List Clean Up) ScreenleapTouch Verio w/Device Kit Use as directed. For [...] patient be offered MSAFP-only screening through the keypunch operator's office, at 15-22 weeks gestation (preferably [...] money to get more. Never true 02/17/2024 [place] Depression Scale Answer Date Recorded [place] Depression Scale Total 0 02/17/2024 The thought [...] as of this encounter Progress Notes * Jeyson Quesada MD - 02/22/2024 12:48 PM EDT MATERNAL MEDICINE VISIT Yari Shen is at 35w6d who presents to [facility] for an ultrasound and follow- up of her high risk . The patient is currently 35 weeks, 6 days gestation with a family history of Marfan's syndrome. She is being seen today by Maternal- Medicine for the following reasons: Problem List Items Addressed This Visit Family history of Marfan syndrome - Primary The anatomy that was visualized appears unremarkable and the overall estimated weight is consistent with the 32nd percentile for the gestational age. Thank you for allowing us to participate in the care of this patient. Please call with any questions. Jeyson Quesada MD 02/22/2024 12:48 PM documented in this encounter Miscellaneous Notes * Assessment & Plan Note - Jeyson Quesada MD - 02/22/2024 12:50 PM EDT Associated Problem(s): Family history of Marfan syndrome The anatomy that was visualized appears unremarkable and the overall estimated weight is consistent with the 32nd percentile for the gestational age. documented in this encounter Plan of Treatment Upcoming Encounters Date Type Department Care Team (Late st Contact Info) Description 02/29/2024 11:30 AM EDT Office Visit Gynecology/Obstetrics [address] [place] [address] Rosemarie Perez PA-C [address] [place] [address] 03/09/2024 4:30 PM EDT Office Visit Gynecology/Obstetrics Dary Velazquez [address] [place] [address] Rosemarie Perez PA-C [address] [place] [address] Health Maintenance Due Date Last Done Comments Depression Screening 2012 HPV (Gardasil) Vaccine (1 - 3-dose series) 09/22/2015 COVID-19 Vaccine (2023- season) 2024 Influenza Vaccine (FLU shot) (#1) [...] as of this encounter Visit Diagnoses Diagnosis Family history of Marfan syndrome- Primary documented in this encounter
--- OUTSIDE RECORDS SUMMARY | 2024-03-19 07:48 | External Medical Summary | Summary of Care ---
Author Name Unknown Organization [facility] Address [address] [place] [address] Phone [phone] Care Team Providers Care Coil Finisher Name Role Phone Unavailable Primary Care Provider Unavailabl e Encounter Details Date Type Department Care Team (Late st Contact Info) Description 02/07/2024 Telephone Gynecology/Obstetrics [facility] [address] [facility] [place] [address] Qi Seals, FAITH, CNM [address] [facility] [place] [address] Allergies No known active allergiesdocumented as of this encounter (statuses as of 02/10/2024) Medications Medication Sig Dispensed Refills Start Date End Date Status 28-0.8 MG Oral Tablet Take by mouth. Active Nystatin-Triamcinolo ne 586693-2.1 UNIT/GM-% External Cream (Mycolog) Apply topically to [...] as of this encounter (statuses as of 02/10/2024) Active Problems Problem Noted Date Diagnosed Date [...] patient be offered MSAFP-only screening through the bottling room worker's office, at 15-22 weeks gestation (preferably 15-18 [...] as of this encounter (statuses as of 02/10/2024) Immunizations Name Administration Dates Next Due DTP [...] money to get more. Never true 01/18/2023 [place] Depression Scale Answer Date Recorded Last EPDS [...] asking if script could be faxed to [phone] ([facility]). If script unable to be sent pt. Still requesting call back if script unable to be sent today. * Telephone Encounter - Chichi Dorsey LPN - 02/08/2024 9:37 AM EDT See message below. PT office calling in requesting script. Will see if Ashleigh will put referral in. Call Sophie back if unable to fax script today. [phone] * Telephone Encounter - Francisca Andres LPN [...] PM EDT Imaging Maternal Medicine Imaging, [facility] [address] [place] [address] 02/17/2024 4:30 PM EDT Office [facility]cology[facility] [address] [place] [address] Rosemarie Perez PA-C [address] [place] [address] 03/05/2024 8:45 AM EDT Office Visit Gynecology/Obstetrics [facility] [address] [place] [address] Leonardo Xavier MD [address] [place] [address] Health Maintenance Due Date Last Done Comments [...]
--- OUTSIDE RECORDS SUMMARY | 2024-03-19 07:49 | External Medical Summary | Summary of Care ---
Author Name Unknown Organization [facility] Address [address] [facility] [place] [address] Phone [phone] Care Team Providers Care Hostess Host Name Role Phone Unavailable Primary Care Provider Unavailabl e Reason for Visit * Reason Onset Date Comments Test Results 12/28/2023 Encounter Details Date Type Department Care Team (Late st Contact Info) Description 12/28/2023 Telephone [facility] [address] [place] [address] Rosemarie Perez PA-C [address] [place] [address] Test Results Allergies No known active allergiesdocumented as of this encounter (statuses as of 12/29/2023) Medications Medication Sig Dispensed Refills Start Date End Date Status 28-0.8 MG Oral Tablet Take by mouth. Active Nystatin-Triamcinolon e 254847-5.1 UNIT/GM-% External Cream (Mycolog) Apply topically to affected area 3 times a day. Apply to vulva 15 g 1 12/27/2023 Active Iron-Vitamin C 65-125 MG Oral Tablet (Vitron C)Indications:Antepar [place] anemia complicating Take 1 Tablet by mouth in the morning and 1 Tablet before bedtime. 60 Tablet 3 12/28/2023 Active documented as of this encounter (statuses as of 12/29/2023) Active Problems Problem Noted Date Diagnosed Date [...] patient be offered MSAFP-only screening through the seamless tube roller's office, at 15-22 weeks gestation (preferably 15-18 [...] as of this encounter (statuses as of 12/29/2023) Immunizations Name Administration Dates Next Due DTP [...] money to get more. Never true 01/18/2023 [place] Depression Scale Answer Date Recorded Last EPDS [...] encounter Miscellaneous Notes * Addendum Note - Kerwin Hernandez, [facility] - 12/29/2023 8:46 AM EDTAddended by: KERWIN HERNANDEZ on: 12/29/2023 08:46 AM Modules accepted: Orders * Telephone Encounter - Kerwin Hernandez CMA - 12/29/2023 8:41 AM EDT Call received from lab @[facility]. Pt got sick during 3hr GTT. Please place order again. Pt aware to reschedule * Telephone Encounter - Adriana Modi RN - 12/28/2023 3:25 PM EDT GLUCOSE - [facility] Date/Time Value Ref Range Status 10/14/2023 07:52 AM 83 70 - 120 mg/dL Final Patient notified of abnormal glucola. The order has been placed in [facility]. Patient. advised to be NPO after 10pm the night before the test.The patient must stay on the premises for the entire time of the test. Patient counseled to take something to eat for after testing. [facility] Pt aware of need for [...] 01/09/2024 9:30 AM EDT Office [facility] [address] [facility] [place] [address] Ashleigh Garcia CNM [address] [place] [address] 02/16/2024 2:30 PM EDT [facility] [address] [place] [address] Pending Results Name Type Priority Associated Diagnoses Date /Time GESTATIONAL GLUCOSE TOLERANCE, 3 HOUR Lab Routine Abnormal glucose tolerance in 12/29/2023 7:48 AM EDT Scheduled Orders Name Type Priority Associated Diagnoses Orde r Schedule GESTATIONAL GLUCOSE TOLERANCE, 3 HOUR Lab Routine Abnormal glucose tolerance in Expected: 12/28/2023, Expires: 12/27/2024 Health Maintenance Due Date Last Done Comments [...]
--- OUTSIDE RECORDS SUMMARY | 2024-03-19 07:49 | External Medical Summary | Summary of Care ---
Author Name Unknown Organization [facility] Address [address] [facility] [place] [address] Phone [phone] Care Team Providers Care Embossing Machine Tender Name Role Phone Unavailable Primary Care Provider Unavailabl e Reason for Visit * Reason Comments Return Visit Encounter Details Date Type Department Care Team (Late st Contact Info) Description 12/02/2023 9:15 AM EDT Office Visit Gynecology/Obstetric s Dary Velazquez [address] [place] [address] Rosemarie Perez PA-C [address] [place] [address] Normal in second trimester*; Family history of Marfan syndrome; Rh negative status during in second trimester; screening for malformation using ultrasonics Allergies No known active allergiesdocumented as of this encounter (statuses as of 12/02/2023) Medications Medication Sig Dispensed Refills Start Date End Date Status 28-0.8 MG Oral Tablet Take by mouth. Active documented as of this encounter (statuses as of 12/02/2023) Active Problems Problem Noted Date Diagnosed Date screening for malformation using ultra sonics 11/11/2023 [...] patient be offered MSAFP-only screening through the classifier's office, at 15-22 weeks gestation (preferably 15-18 [...] as of this encounter (statuses as of 12/02/2023) Immunizations Name Administration Dates Next Due DTP [...] Fluzone) 04/05/2023 TDAP (age 10 and older)(Boostrix) 04/24/2013 Varicella Vaccine (Chicken Pox) 01/29/2011,09/25 documented as [...] money to get more. Never true 01/18/2023 [place] Depression Scale Answer Date Recorded Last EPDS [...] Sign Reading Time Taken Comments Blood Pressure 118/72 12/02/2023 9:12 AM EDT Pulse - - Temperature - - Respiratory Rate - - Oxygen Saturation - - Inhaled Oxygen Concentration - - Weight 63 kg (138 lb 12.8 oz) 12/02/2023 9:12 AM EDT Height 162.6 cm (5' 4") 12/02/2023 9:12 AM EDT Body Mass Index 23.82 12/02/2023 9:12 AM EDT documented in this encounter Progress Notes * Rosemarie Perez PA-C - 12/02/2023 9:20 AM EDT 24w1d Anatomy and echo completed with [facility] secondary to paternal history of Marfan syndrome. Scheduled back with them for growth in 14 weeks. Reviewed RhoGAM and Tdap with next visit. Having some increased pain near tailbone. Feels swollen and worse at end of day. Improves with heat. On exam no skin lesion, her area of most discomfort is actually low back exam is otherwise benign.Pt does have history of scoliosis and back pain. Reviewed comfort measures with belly support band,alternating heat/ice and tylenol. Discussed avoiding imaging with XR at this time d/t radiation. Ifcontinues or worsens recommended she see PCP for further evaluation. Denies LOF, VB, contractions. Baby is active. Reviewed Tdap, Rhogam and third tri labs with next visit. RTC in 4 weeks Rosemarie Perez PA-C documented in this encounter Nursing Notes * Bernarda Hardy RN - 12/02/2023 9:13 AM EDT Patient here for FIDENCIO + FM 28 week labs pended Having tailbone pain since last visit documented in this encounter Plan of Treatment Upcoming Encounters Date Type Department Care Team (Late st Contact Info) Description 12/26/2023 10:15 AM EDT Office Visit Gynecology/Obstetrics Dary Grubbss [address] [place] [address] Kelly Ureña CRNP [address] [place] [address] 02/16/2024 2:30 PM EDT Imaging Maternal Medicine Imaging, Ana Velazquez [address] [place] [address] Scheduled Orders Name Type Priority Associated Diagnoses Orde r Schedule 50-G GESTATIONAL GLUCOSE, 1 HOUR Lab Routine Normal in second trimester Expected: 01/01/2024, Expires: 12/01/2024 CBC WITH WBC DIFFERENTIAL AND ANEMIA REFLEX WORKUP Lab Routine Normal in second trimester Expected: 01/01/2024, Expires: 12/01/2024 TYPE AND SCREEN Lab Routine Normal in second trimester Rh negative status during in second trimester Expected: 01/01/2024, Expires: 12/31/2024 SYPHILIS ANTIBODY SCREEN WITH REFLEX TO RPR Lab Routine Normal in second trimester Expected: 01/01/2024, Expires: 12/01/2024 Health Maintenance Due Date Last Done Comments Depression Screening 2012 GARDASIL-HPV IMMUNIZATION SERIES (1 - 3-dose series) 09/22/2015 COVID-19 Vaccine (24 season) 2023 DTaP,Tdap,and Td Vaccines (7 - Td or Tdap) 04/24/2023 04/24/2013, 01/26/2006, 01/10/2002, Additional history exists Gonorrhea / Chlamydia Screen 08/14/2024 08/15/2023, 11/29/2022 Pap Smear 08/14/2026 08/15/2023 Hepatitis B Completed 09/25/2001, 02/04, 2000 Pneumococcal Vaccine: Pediatrics (0 to 5 Years) and At-Risk Patients (6 to 64 Years) Completed 01/08/2003, 04/19/2001, 02/15/2001, Additional history exists MENINGOCOCCAL (MENACTRA/MENVEO) Aged Out 04/24/2013 No longer eligible based on patient's age to complete this topic Influenza Vaccine (FLU shot) Completed 04/05/2023 documented as of this encounter Medical Devices Not on filedocumented as of this encounter Visit Diagnoses Diagnosis Normal in second trimester- Primary Family history of Marfan syndrome Rh negative status during in second trimester screening for malformation using ultrasonics Encounter for routine screening for malformation using ultrasonics documented in this encounter
--- OUTSIDE RECORDS SUMMARY | 2024-03-19 07:49 | External Medical Summary | Summary of Care ---
Author Name Unknown Organization [facility] Address [address] [facility] [place] [address] Phone [phone] Care Team Providers Care Licensed Mental Health Counselor Name Role Phone Unavailable Primary Care Provider Unavailabl e Reason for Visit * Reason Comments Return Visit Encounter Details Date Type Department Care Team (Late st Contact Info) Description 11/04/2023 11:15 AM EDT Office Visit Gynecology/Obstetric s Dary Velazquez [address] [place] [address] Rosemarie Perez PA-C [address] [place] [address] Normal in second trimester*; Family history of Marfan syndrome; Rh negative status during in second trimester Allergies No known active allergiesdocumented as of this encounter (statuses as of 11/04/2023) Medications Medication Sig Dispensed Refills Start Date End Date Status 28-0.8 MG Oral Tablet Take by mouth. Active documented as of this encounter (statuses as of 11/04/2023) Active Problems Problem Noted Date Diagnosed Date Rh negative status during 08/16/2023 Normal 08/15/2023 [...] patient be offered MSAFP-only screening through the hydraulic oil tool operator's office, at 15-22 weeks gestation (preferably [...] as of this encounter (statuses as of 11/04/2023) Immunizations Name Administration Dates Next Due DTP [...] Date Smoking Tobacco: Never Smokeless Tobacco: Never Tobacco Cessation:Counseling Given: Not Answered Alcohol Use Standard Drinks/Week Comments Not Currently [...] money to get more. Never true 01/18/2023 [place] Depression Scale Answer Date Recorded Last EPDS Total Score Not on file 08/15/2023 The thought of harming myself has occurred to me . Never 08/15/2023 Estimated Date of Delivery Comme nts Yes [...] Sign Reading Time Taken Comments Blood Pressure 102/70 11/04/2023 11:04 AM EDT Pulse - - Temperature - - Respiratory Rate - - Oxygen Saturation - - Inhaled Oxygen Concentration - - Weight 60 kg (132 lb 3.2 oz) 11/04/2023 11:04 AM EDT Height 162.6 cm (5' 4") 11/04/2023 11:04 AM EDT Body Mass Index 22.69 11/04/2023 11:04 AM EDT documented in this encounter Progress Notes * Rosemarie Perez PA-C - 11/04/2023 11:16 AM EDT 20w1d Anatomy schedule with M next week. Declines MSAFP for screening for ONTD. Qnatal low risk. Denies LOF, VB. + quickening. RTC in 4 weeks Rosemarie Perez PA-C documented in this encounter Nursing Notes * Bernarda Hardy RN - 11/04/2023 11:05 AM EDT Patient here for FIDENCIO visit No concerns Anatomy US scheduled with [facility] next week. Bernarda Hardy RN documented in this encounter Plan of Treatment Upcoming Encounters Date Type Department Care Team (Late st Contact Info) Description 11/11/2023 12:30 PM EDT Office Visit Ocular Pathologist Obstetrics Maternal Medicine, [place] [address] [place] [address] Ricky Quiroz, [address] [place] [address] 11/11/2023 12:30 PM EDT Imaging Radiology [facility], [place] [address] [place] [address] 12/02/2023 9:15 AM EDT Office Visit Gynecology/Obstetrics [facility] [address] [place] [address] Rosemarie Perez PA-C [address] [place] [address] Health Maintenance Due Date Last Done Comments Depression Screening 2012 GARDASIL-HPV IMMUNIZATION SERIES (1 - 3-dose series) 09/22/2015 COVID-19 Vaccine (2022-24 season) 2023 DTaP,Tdap,and Td Vaccines (7 - [...] Rh negative status during in second trimester documented in this encounter
--- OUTSIDE RECORDS SUMMARY | 2024-03-19 07:49 | External Medical Summary ---
Author Name Unknown Address Unknown Organization [id number]:LABORATORY [facility] [place] - [address] [place] [address] Laboratory Report Ordering Provider Test Date Status BRIDGETTE MCFADDEN 12/26/2023 10:38:27 Final Observation Date Value Abnormality Reference (Units ) Status TSH 12/26/2023 10:38:27 2.00 0.27-4.20 (uIU/mL) Final Performing Location LAB[facility]ATORY [facility] - [address] [place] [address]
--- OUTSIDE RECORDS SUMMARY | 2024-03-19 07:49 | External Medical Summary | Summary of Care ---
Author Name Unknown Organization [facility] Address [address] [facility] [place] [address] Phone [phone] Care Team Providers Care Tours Hostess Name Role Phone Unavailable Primary Care Provider Unavailabl e Reason for Visit * Reason Onset Date Comments Return Visit Immunizations 12/26/2023 Encounter Details Date Type Department Care Team (Late st Contact Info) Description 12/26/2023 10:15 AM EDT Office Visit Gynecology/Obstetric s Dary Velazquez [address] [place] [address] Kelly Ureña CRNP [address] [place] [address] Normal in third trimester*; Family history of Marfan syndrome; Rh negative status during in third trimester; screening for malformation using ultrasonics; Need for cxqhsjlthw-hatryej-ct rtussis (Tdap) vaccine; Rh negative status during in second trimester Allergies No known active allergiesdocumented as of this encounter (statuses as of 12/26/2023) Medications Medication Sig Dispensed Refills Start Date End Date Status 28-0.8 MG Oral Tablet Take by mouth. Active Hospital, Clinic, or Other Facility Administered Medication Ordered Dose Route Frequency Start Date End Date Status Rho D Immune Globulin (Rhophylac) inj 300 mcgIndications:Rh negative status during in third trimester 300 mcg IM ONCE 12/26/2023 12/26/2023 Ended documented as of this encounter (statuses as of 12/26/2023) Active Problems Problem Noted Date Diagnosed Date [...] patient be offered MSAFP-only screening through the divisional merchandising manager's office, at 15-22 weeks gestation (preferably [...] as of this encounter (statuses as of 12/26/2023) Immunizations Name Administration Dates Next Due DTP [...] money to get more. Never true 01/18/2023 [place] Depression Scale Answer Date Recorded Last EPDS [...] No 01/18/2023 Does the household have a [facility] source of income? (Household - [...] Sign Reading Time Taken Comments Blood Pressure 128/80 12/26/2023 9:49 AM EDT Pulse - - Temperature - - Respiratory Rate - - Oxygen Saturation - - Inhaled Oxygen Concentration - - Weight 66.2 kg (146 lb) 12/26/2023 9:49 AM EDT Height 162.6 cm (5' 4") 12/26/2023 9:49 AM EDT Body Mass Index 25.06 12/26/2023 9:49 AM EDT documented in this encounter Patient Instructions * Patient Instructions* Eliana Khan LPN - 12/26/2023 9:51 AM EDT ~~PATIENT INSTRUCTIONS FOR TDAP VACCINE~~ Possible side effects of TDAP vaccine, (tetanus shot), are usually mild and can include: 1. Soreness or redness at injection site 2. Low grade fever 3. Body aches You may use a fever / pain reducing medication as needed for these symptoms. LET YOUR DOCTOR KNOW IMMEDIATELY IF YOU HAVE DIFFICULTY BREATHING OR SWALLOWING, EXPERIENCE ITCHINGOF FEET OR HANDS, HAVE SWELLING OF EYES, FACE OR INSIDE OF NOSE. documented in this encounter Progress Notes * Kelly Ureña CRNP - 12/26/2023 10:32 AM EDT 27w4d Used Monistat 7 last week, and symptoms seemed to worsen. BV swab obtained today. Still with tailbone pain. Suggested chiropractor, but she had issues with scoliosis worsening aftergoing in the past. Suggested PT. Baby is active. Denies contractions, bleeding, LOF. Glucola, Rhogam, TDAP today. Hospice Volunteer Documentation Provider requested agronomy supervisor. Name of agronomy supervisor: TERRY Monroe documented in this encounter Nursing Notes * Eliana Khan LPN - 12/26/2023 10:51 AM EDT Patient here for Rhogam injection. Patient doing well no complaints. Injection given IM as ordered.Patient tolerated well. Patient to follow up as directed. Patient instructed to call if any complications. Patient verbalized understanding of instructions given and her follow up appt for FIDENCIO Injection site: Right Gluteus Medication Source: Dispensed stock medication Patient here for TDAP injection. Patient doing well no complaints. Injection given IM as ordered. Patient tolerated well. Patient to follow up as directed. Patient instructed to call if any complications. Patient verbalized understanding of instructions given and her follow up appt for FIDENCIO Injection site: Left Deltoid Medication Source: Dispensed stock medication * Eliana Khan LPN - 12/26/2023 10:10 AM EDT 27w4d Tx yeast infx with monistAT 7, finished a week ago. Made sx worse. Itchy, white discharge, documented in this encounter Plan of Treatment Upcoming Encounters Date Type Department Care Team (Late st Contact Info) Description 01/09/2024 9:30 AM EDT Office Visit Gynecology/Obstetrics [facility] Velazquez [address] [place] [address] Ashleigh Garcia CNM [address] [place] [address] [place] [address] 02/16/2024 2:30 PM EDT Imaging Maternal Medicine Imaging, Ana Velazquez [facility] [place] [address] Health Maintenance Due Date Last Done [...] for routine screening for malformation using ultrasonics Need for jotnjupzys-vlywzow-kzeflksxl (Tdap) vaccine Need for prophylactic vaccination with combined bigsmzqztb-dzwajor-azqfvftub (DTP) vaccine Rh negative status during in second trimester documented in this encounter Administered Medications Inactive Administered Medications - up to 3 most recent administrations Medication Order MAR Action Action Date Dose Rate Site Rho D Immune Globulin (Rhophylac) inj 300 mcg 300 mcg, Intramuscular, ONCE, On 12/26/23 at 1100, For 1 dose, Do not administer until type and screen has been collected! 1 MCG = 5 INTERNATIONAL UNITS Given 12/26/2023 10:47 AM EDT 300 mcg Dorsogluteal Right documented in this encounter
--- OUTSIDE RECORDS SUMMARY | 2024-03-19 07:49 | External Medical Summary ---
Author Name Unknown Address Unknown Organization K01:LABORATORY [facility] [place] - [address] [facility] [address] [facility] [address] Laboratory Report Ordering Provider Test Date Status BRIDGETTE MCFADDEN 12/26/2023 10:38:27 Final Observation Date Value Abnormality Reference (Units ) Status Treponema pallidum Ab [Presence] in Serum by Immunoassay 12/26/2023 10:38:27 Nonreactive Nonreactive Final No serologic evidence of syp hilis. No additional testing clinicially indicated at this time. Consider repeat testing in 2-4 weeks if acute or primary syphilis is suspected. Performing Location [facility] [place] [facility] [address] [facility] [address]
--- OUTSIDE RECORDS SUMMARY | 2024-03-19 07:49 | External Medical Summary ---
Author Name Unknown Address Unknown Organization [id number]:LABORATORY [facility] [place] - [address] [place] [address] Laboratory Report Ordering Provider Test Date Status BRIDGETTE MCFADDEN 12/26/2023 10:38:27 Final Observation Date Value Abnormality Reference (Units ) Status Vitamin B12 12/26/2023 10:38:27 [phone] (pg/mL) Final Performing Location [facility] - [address] [place] [address]
--- OUTSIDE RECORDS SUMMARY | 2024-03-19 07:49 | External Medical Summary | Summary of Care ---
Author Name Unknown Organization [facility] Address [address] [place] [address] Phone [phone] Care Team Providers Care Electronics Assembler And Tester Name Role Phone Unavailable Primary Care Provider Unavailabl e Reason for Visit * Reason Comments Outpatient Testing Encounter Details Date Type Department Care Team (Late st Contact Info) Description 12/29/2023 8:00 AM EDT Laboratory Laboratory, [facility] [address] [place] [address] [facility], Lab [address] [place] [address] Abnormal glucose tolerance in Allergies No known active allergiesdocumented as of this encounter (statuses as of 12/29/2023) Medications Medication Sig Dispensed Refills Start Date End Date Status 28-0.8 MG Oral Tablet Take by mouth. Active Nystatin-Triamcinolon e 754366-7.1 UNIT/GM-% External Cream (Mycolog) Apply topically to [...] patient be offered MSAFP-only screening through the mounter saxophones's office, at 15-22 weeks gestation (preferably 15-18 [...] money to get more. Never true 01/18/2023 [place] Depression Scale Answer Date Recorded Last EPDS [...] 01/09/2024 9:30 AM EDT Office Visit Gynecology/Obstetrics [facility] [address] [place] [address] Ashleigh Garcia, H[place] [address] [facility] [place] [address] 02/16/2024 2:30 PM EDT Imaging Maternal Medicine Imaging, Ana [facility] [address] [place] [phone] Pending Results Name Type Priority Associated Diagnoses Date /Time GESTATIONAL GLUCOSE TOLERANCE, 3 HOUR Lab Routine Abnormal glucose tolerance in 12/29/2023 7:48 AM EDT 100-G GESTATIONAL GLUCOSE, FASTING Lab Routine Abnormal glucose tolerance in 12/29/2023 7:48 AM EDT Health Maintenance Due Date Last [...] of this encounter Visit Diagnoses Diagnosis Abnormal glucose tolerance in documented in this encounter
--- OUTSIDE RECORDS SUMMARY | 2024-03-19 07:49 | External Medical Summary ---
Author Name Unknown Address Unknown Organization K01:LABORATORY [facility] - [address] [place] [address] Laboratory Report Ordering Provider Test Date Status BRIDGETTE MCFADDEN 12/26/2023 10:38:27 Final Observation Date Value Abnormality Reference (Units ) Status ABO 12/26/2023 10:38:27 O Final RH 12/26/2023 10:38:27 Negative Final RED BLOOD CELL ANTIBODY SCREEN 12/26/2023 10:38:27 Negative Final SPECIMEN EXPIRATION DATE 12/26/2023 10:38:27 12/29/2023 23:59 Final Performing Location LABORATORY [facility] - [address] [place] [address]
--- OUTSIDE RECORDS SUMMARY | 2024-03-19 07:49 | External Medical Summary | Summary of Care ---
Author Name Unknown Organization [facility] Address [address] [facility] [place] [address] Phone [phone] Care Team Providers Care Quality Assurance Manager Name Role Phone Unavailable Primary Care Provider Unavailabl e Reason for Visit * Reason Onset Date Comments Test Results 12/28/2023 Encounter Details Date Type Department Care Team (Late st Contact Info) Description 12/28/2023 Telephone [facility] [address] [place] [address] Rosemarie Perez PA-C [address] [place] [address] Test Results Allergies No known active allergiesdocumented as of this encounter (statuses as of 12/29/2023) Medications Medication Sig Dispensed Refills Start Date End Date Status 28-0.8 MG Oral Tablet Take by mouth. Active Nystatin-Triamcinolon e 119488-4.1 UNIT/GM-% External Cream (Mycolog) Apply topically to [...] patient be offered MSAFP-only screening through the property management intern's office, at 15-22 weeks gestation (preferably 15-18 [...] money to get more. Never true 01/18/2023 [place] Depression Scale Answer Date Recorded Last EPDS [...] encounter Miscellaneous Notes * Telephone Encounter - Chichi Dorsey LPN [...] 8:41 AM EDT Call received from lab @[facility]. Pt got sick during 3hr GTT. Please place order again. Pt aware to reschedule * Telephone Encounter - Adriana Modi RN - 12/28/2023 3:25 PM EDT GLUCOSE - [facility] Date/Time Value Ref Range Status [...] eat for after testing. Patient transferred to appt to schedule. Pt aware of need for [...] 01/09/2024 9:30 AM EDT Office Visit Gynecology/Obstetrics Dary Velazquez [address] [place] [address] Ashleigh Garcia, HENRIQUE [address] [place] [address] [place] [address] 02/16/2024 2:30 PM EDT Imaging Maternal Medicine Imaging, Ana Velazquez [address] [place] [phone] Pending Results Name Type Priority Associated [...] 3-dose series) 09/22/2015 COVID-19 Vaccine ( - 2022- season) 2023 Influenza Vaccine (FLU shot) (#1) [...]
--- OUTSIDE RECORDS SUMMARY | 2024-03-19 07:49 | External Medical Summary | Summary of Care ---
Author Name Unknown Organization [facility] Address [address] [place] [address] Phone [phone] Care Team Providers Care Chief Librarian Branch Or Department Name Role Phone Unavailable Primary Care Provider Unavailabl e Reason for Visit * Reason Comments Ultrasound Encounter Details Date Type Department Care Team (Late st Contact Info) Description 11/11/2023 12:30 PM EDT Office Visit Test Borer Helper Obstetrics Maternal Medicine, [place] [address] [place], [place] [phone] Ricky Quiroz, DO [address], [place] [id number] screening for malformation using ultrasonics*; Family history of Marfan syndrome; 21 weeks gestation of Allergies No known active allergiesdocumented as of this encounter (statuses as of 11/11/2023) Medications Medication Sig Dispensed Refills Start Date End Date Status 28-0.8 MG Oral Tablet Take by mouth. Active documented as of this encounter (statuses as of 11/11/2023) Active Problems Problem Noted Date Diagnosed Date [...] patient be offered MSAFP-only screening through the audiovisual lead technician's office, at 15-22 weeks gestation (preferably [...] Comme nts Yes 03/22/2024 Based on last nd nstrual period of 06/16/2023 (Approximate) documented as of this encounter (statuses as of 11/11/2023) Immunizations Name Administration Dates Next Due DTP [...] money to get more. Never true 01/18/2023 [place] Depression Scale Answer Date Recorded Last EPDS [...] as of this encounter Progress Notes * Ricky Quiroz, - 11/11/2023 2:11 PM EDT MATERNAL MEDICINE VISIT Yari Shen is at 21w1d who presents to [facility] for an ultrasound and follow- up of her high risk . PHYSICAL EXAM: General: pleasant, alert and oriented, no acute distress She is being seen today by Maternal- Medicine for the following reasons: Problem List Items Addressed This Visit Family history of Marfan syndrome screening for malformation using ultrasonics - Primary She presents for a anatomy survey and [...] identify all anomalies, but it is reassuring thatno anomalies were seen today. We reviewed that there are some case reports of third trimester cardiac findings associated with Marfan syndrome, but otherwise diagnosis centers around genetic testing, which she plans to defer to after delivery. We will plan a follow-up ultrasound at about 35 weeks. We reviewed today's ultrasound findings. (For full report, please refer to ultrasound report provided separately). Ms. Shen's questions were answered to her satisfaction. RECOMMENDATIONS: Recommend follow up ultrasound with [facility] in 14 weeks for growth secondary to the above. Thank you for allowing us to participate in the care of this patient. Please call with any questions. Ricky Quiroz DO 11/11/2023 2:11 PM documented in this encounter Miscellaneous Notes * Assessment & Plan Note - Ricky Quiroz DO - 11/11/2023 12:59 PM EDT Associated Problem(s): screening for malformation using ultrasonics She presents for a anatomy survey and [...] identify all anomalies, but it is reassuring thatno anomalies were seen today. We reviewed that there are some case reports of third trimester cardiac findings associated with Marfan syndrome, but otherwise diagnosis centers around genetic testing, which she plans to defer to after delivery. We will plan a follow-up ultrasound at about 35 weeks. documented in this encounter Plan of Treatment Upcoming Encounters Date Type Department Care Team (Late st Contact Info) Description 12/02/2023 9:15 AM EDT Office Visit Gynecology/Obstetrics Dary Velazquez [address] [place] [address] Rosemarie Perez PA-C [address] [place] [address] 02/16/2024 2:30 PM EDT Imaging Maternal Medicine Imaging, Ana Velazquez [address] [place] [phone] Scheduled Orders Name Type Priority Associated Diagnoses Orde r Schedule MFM US PREG FOLLOW UP EACH FETUS Medical Imaging Routine screening for malformation using ultrasonics Family history of Marfan syndrome 6 Occurrences starting 11/11/2023 until 05/12/2024 Health Maintenance Due Date Last Done Comments Depression Screening 2012 GARDASIL-HPV IMMUNIZATION SERIES (1 - 3-dose series) 09/22/2015 COVID-19 Vaccine ( season) 2023 DTaP,Tdap,and Td Vaccines (7 - [...] as of this encounter Visit Diagnoses Diagnosis screening for malformation using ultrasonics- Primary Encounter for routine screening for malformation using ultrasonics Family history of Marfan syndrome 21 weeks gestation of state, incidental documented in this encounter
--- OUTSIDE RECORDS SUMMARY | 2024-03-19 07:49 | External Medical Summary | Summary of Care ---
Author Name Unknown Organization [facility] Address [address] [facility] [place] [address] Phone [phone] Care Team Providers Care Digital Court Reporter Name Role Phone Unavailable Primary Care Provider Unavailabl e Reason for Visit * Reason Onset Date Comments Return Visit Immunizations 12/26/2023 Encounter Details Date Type Department Care Team (Late st Contact Info) Description 12/26/2023 10:15 AM EDT Office Visit Gynecology/Obstetric s Dary Velazquez [address] [place] [address] Kelly Ureña CRNP [address] [place] [address] Normal in third trimester*; Family history of Marfan syndrome; Rh negative status during in third trimester; screening for malformation using ultrasonics; Need for tqedaxzach-njnobto-lf rtussis (Tdap) vaccine; Rh negative status during in second trimester; Vaginal discharge Allergies No known active allergiesdocumented as of [...] patient be offered MSAFP-only screening through the general road supervisor's office, at 15-22 weeks gestation (preferably [...] money to get more. Never true 01/18/2023 [place] Depression Scale Answer Date Recorded Last EPDS [...] 01/18/2023 Does the household have a re lar [...] contractions, bleeding, LOF. Glucola, Rhogam, TDAP today. Hogshead Dumper Documentation Provider requested gifted program teacher. Name of gifted program teacher: TERRY Monroe documented in this encounter Nursing [...] 01/09/2024 9:30 AM EDT Office Visit Gynecology/Obstetrics [facility] [address] [place] [address] Ashleigh Garcia CNM [address] [place] [address] [place] [address] 02/16/2024 2:30 PM EDT Imaging Maternal Medicine Imaging, Ana Velazquez [facility] [place] [phone] Pending Results Name Type Priority Associated Diagnoses Date /Time VAGINOSIS PANEL, PCR Lab Routine Vaginal discharge 12/26/2023 11:35 AM EDT Health Maintenance Due Date Last [...] screening for malformation using ultrasonics Need for wkdfyucjll-gcoijki-xahszsnqo (Tdap) vaccine Need for prophylactic vaccination with combined kijmwsgyqq-qjzflhl-evxgmrunw (DTP) vaccine Rh negative status during in second trimester Vaginal discharge Leukorrhea, not specified as infective documented in this encounter Administered Medications Inactive [...]
--- OUTSIDE RECORDS SUMMARY | 2024-03-19 07:49 | External Medical Summary | Summary of Care ---
Author Name Unknown Organization [facility] Address [address] [facility] [place] [address] Phone [phone] Care Team Providers Care Barratte Operator Name Role Phone Unavailable Primary Care Provider Unavailabl e Reason for Visit * Reason Onset Date Comments Test Results 12/27/2023 Encounter Details Date Type Department Care Team (Late st Contact Info) Description 12/27/2023 Telephone [facility] [address] [place] [address] Kelly Ureña CRNP [address] [place] [address] Test Results Allergies No known active allergiesdocumented as of this encounter (statuses as of 12/27/2023) Medications Medication Sig Dispensed Refills Start Date End Date Status 28-0.8 MG Oral Tablet Take by mouth. Active Nystatin-Triamcinolon e 294194-6.1 UNIT/GM-% External Cream (Mycolog) Apply topically to affected area 3 times a day. Apply to vulva 15 g 1 12/27/2023 Active documented as of this encounter (statuses as of 12/27/2023) Active Problems Problem Noted Date Diagnosed Date [...] patient be offered MSAFP-only screening through the ladderman's office, at 15-22 weeks gestation (preferably 15-18 [...] as of this encounter (statuses as of 12/27/2023) Immunizations Name Administration Dates Next Due DTP [...] money to get more. Never true 01/18/2023 [place] Depression Scale Answer Date Recorded Last EPDS [...] encounter Miscellaneous Notes * Telephone Encounter - Kelly Ureña CRNP - 12/27/2023 3:19 PM EDT Rx sent. * Telephone Encounter - Francisca Andres LPN - 12/27/2023 2:20 PM EDT Patient notified, she would like Rx sent. Pharmacy updated * Telephone Encounter - Kelly Ureña CRNP - 12/27/2023 12:55 PM EDT Please notify pt that vaginal culture is negative for infection. If she is having external itching/irritation, I can send Mycolog- ask pharmacy preference. documented in this encounter Plan of Treatment Upcoming Encounters Date Type Department Care Team (Late st Contact Info) Description 01/09/2024 9:30 AM EDT Office Visit Gynecology/Obstetrics [facility] [address] [place] [address] Ashleigh Garcia CNM [address] [place] [address] 02/16/2024 2:30 PM EDT Imaging Maternal Medicine Imaging, Ana Velazquez [address] [place] [phone] Health Maintenance Due Date Last Done [...]
--- OUTSIDE RECORDS SUMMARY | 2024-03-19 07:49 | External Medical Summary ---
Author Name Unknown Address Unknown Organization [id number]:[place] [facility] [place] [address] [place] [address] Laboratory Report Ordering Provider Test Date Status BRIDGETTE MCFADDEN 12/26/2023 10:38:27 Final Observation Date Value Abnormality Reference (Units ) Status Folic Acid 12/26/2023 10:38:27 16.0 >4.5 (ng/ mL) Final Performing Location [facility] - [address] [place] [address]
--- OUTSIDE RECORDS SUMMARY | 2024-03-19 07:49 | External Medical Summary | Summary of Care ---
Author Name Unknown Organization [facility] Address [address] [facility] [place] [address] Phone [phone] Care Team Providers Care Lever Operator Name Role Phone Unavailable Primary Care Provider Unavailabl e Reason for Visit * Reason Onset Date Comments Test Results 12/28/2023 Encounter Details Date Type Department Care Team (Late st Contact Info) Description 12/28/2023 Telephone [facility] [address] [place] [address] Rosemarie Perez PA-C [address] [place] [address] Test Results Allergies No known active allergiesdocumented as of this encounter (statuses as of 12/28/2023) Medications Medication Sig Dispensed Refills Start Date End Date Status 28-0.8 MG Oral Tablet Take by mouth. Active Nystatin-Triamcinolon e 076554-8.1 UNIT/GM-% External Cream (Mycolog) Apply topically to affected area 3 times a day. Apply to vulva 15 g 1 12/27/2023 Active Iron-Vitamin C 65-125 MG Oral Tablet (Vitron C)Indications:Antepar [place] anemia complicating Take 1 Tablet by mouth in the morning and 1 Tablet before bedtime. 60 Tablet 3 12/28/2023 Active documented as of this encounter (statuses as of 12/28/2023) Active Problems Problem Noted Date Diagnosed Date [...] patient be offered MSAFP-only screening through the relief salesperson's office, at 15-22 weeks gestation (preferably 15-18 [...] as of this encounter (statuses as of 12/28/2023) Immunizations Name Administration Dates Next Due DTP [...] encounter Miscellaneous Notes * Telephone Encounter - Adriana Modi RN - 12/28/2023 3:25 PM EDT GLUCOSE - [facility] Date/Time Value Ref Range Status 10/14/2023 07:52 [...] eat for after testing. [facility]. Pt aware of need for [...] Description 12/29/2023 8:00 AM EDT Laboratory Laboratory, Dary Velazquez [address] [place] [phone] Eusebio Velazquez [address] [place] [address] 01/09/2024 9:30 AM EDT Office Visit Gynecology/[place] [address] Ashleigh Garcia, KESHAV [address] [place] [address] 02/16/2024 2:30 PM EDT Imaging Maternal Medicine Imaging, Ana Grubbss [address] [place] [address] Scheduled Orders Name Type Priority Associated Diagnoses Orde r Schedule GESTATIONAL GLUCOSE TOLERANCE, 3 HOUR Lab Routine Abnormal glucose tolerance in Expected: 12/28/2023, Expires: 12/27/2024 Health Maintenance Due Date Last Done Comments Depression Screening 2012 HPV (Gardasil) Vaccine (1 - 3-dose series) 09/22/2015 COVID-19 Vaccine (2022- season) 2023 Influenza Vaccine (FLU shot) (#1) [...]
--- OUTSIDE RECORDS SUMMARY | 2024-03-19 07:49 | External Medical Summary | Summary of Care ---
Author Name Unknown Organization [facility] Address [address] [place] [address] Phone [phone] Care Team Providers Care Product Merchandiser Name Role Phone Unavailable Primary Care Provider Unavailabl e Reason for Visit * Reason Onset Date Comments Referral 08/18/2023 Encounter Details Date Type Department Care Team (Late st Contact Info) Description 08/18/2023 Telephone Civil Geotechnical Engineer Obstetrics Maternal Medicine, [place] [address] [place] [address] [place], Nurse Civil Geotechnical Engineer [facility] [address] [place], [place] [id number] Referral Allergies No known active allergiesdocumented as of this encounter (statuses as of 11/17/2023) Medications Medication Sig Dispensed Refills Start Date End Date Status 28-0.8 MG Oral Tablet Take by mouth. Active documented as of this encounter (statuses as of 11/17/2023) Active Problems Problem Noted Date Diagnosed Date [...] patient be offered MSAFP-only screening through the aircraft steel fabricator's office, at 15-22 weeks gestation (preferably 15-18 [...] Comme nts Yes 03/22/2024 Based on last nm nstrual period of 06/16/2023 (Approximate) documented as of this encounter (statuses as of 11/17/2023) Immunizations Name Administration Dates Next Due DTP [...] money to buy more. Never true 01/19/20 Within the past 12 months, t he food you bought just didn't last and you didn't have money to get more. Never true 01/18/2023 [place] Depression Scale Answer Date Recorded Last EPDS [...] encounter Miscellaneous Notes * Telephone Encounter - Radha Hoover OSA - 08/18/2023 2:16 PM EDT Spoke with Yari. Appointment scheduled. Patient aware of date, time and location of Maternal Medicine appointment. * Telephone Encounter - Adriana Durán CCMA - 08/18/2023 2:03 PM EDT Estimated Date of Delivery: 03/23/24 Please schedule for LONG SCAN, in time frame of between 19-21 weeks (10/29/23 to 11/12/23) at [facility] with the indication of FOB with Marfan syndrome. Please schedule limited anatomy between 64g9l-84k6j weeks (09/07/23-09/23/23) Patient already met with genetics. Referring Provider: Mariana Cooley CRNP documented in this encounter Plan of Treatment Upcoming Encounters Date Type Department Care Team (Late st Contact Info) Description 12/02/2023 9:15 AM EDT Office Visit Gynecology/Obstetrics [facility] Grubbss [address] [place] [address] Rosemarie Perez PA-C [address] [place] [address] 02/16/2024 2:30 PM EDT Imaging Maternal Medicine Imaging, Ana Velazquez [address] [place] [phone] Health Maintenance Due Date Last Done Comments Depression Screening 2012 GARDASIL-HPV IMMUNIZATION SERIES (1 - 3-dose series) 09/22/2015 COVID-19 Vaccine (2022- season) 2023 DTaP,Tdap,and Td Vaccines (7 - [...]
--- OUTSIDE RECORDS SUMMARY | 2024-03-19 07:49 | External Medical Summary ---
Author Name Unknown Address Unknown Organization [id number]:[place] [facility] [place] [address] [facility] [address] Laboratory Report Ordering Provider Test Date Status RAYSA YUMICK 12/26/2023 11:35:36 Final Observation Date Value Abnormality Reference (Units ) Status Bacterial vaginosis [Interpretation] in Vaginal fluid Qualitative 12/26/2023 11:35:36 Negative Negative Final Negative for Bacterial Vagin osis. Correlate results with other clinical findings. Wendy sp DNA [Presence] in Vaginal fluid by Probe 12/26/2023 11:35:36 Negative Negative Final No Wendy species group RNA detected. Correlate results with other clinical findings. Wendy glabrata RNA [Presen ce] in Vaginal fluid by CAMERON with probe detection 12/26/2023 11:35:36 Negative Negative Final No Wendy glabrata RNA dete cted. Correlate results with other clinical findings. Trichomonas vaginalis DNA [P resence] in Vaginal fluid by Probe 12/26/2023 11:35:36 Negative Negative Final No Trichomonas vaginalis RNA detected. Performing Location [facility] [address] [facility] [address] [facility] [address]
--- OUTSIDE RECORDS SUMMARY | 2024-03-19 07:49 | External Medical Summary ---
Author Name Unknown Address Unknown Organization K01:LAB[facility]ATORY [facility] [place] [address] [place] [address] Laboratory Report Ordering Provider Test Date Status BRIDGETTE MCFADDEN 12/26/2023 10:38:27 Final Observation Date Value Abnormality Reference (Units ) Status Creatinine 12/26/2023 10:38:27 0.6 0.5-1.0 (mg/dL) Final Glomerular filtration rate/1.73 sq M.predicted [Volume Rate/Area] in Serum, Plasma or Blood by Creatinine-based formula (CKD-EPI) 12/26/2023 10:38:27 >90 >=60 (mL/min) Final eGFR is calculated based on the CKD-EPI 2020 equation. Performing Location LABORATORY [facility] [place] - [address] [place] [address]
--- OUTSIDE RECORDS SUMMARY | 2024-03-19 07:49 | External Medical Summary ---
Author Name Unknown Address Unknown [id number] [address] [place] [id number] Laboratory Report Ordering Provider Test Date Status BRIDGETTE MCFADDEN 12/26/2023 10:38:27 Final Observation Date Value Abnormality Reference (Units ) Status Glucose [Moles/volume] in Serum or Plasma --1 hour post 50 g glucose PO 12/26/2023 10:38:27 144 Above high normal 70-129 (mg/dL) Final Performing Location LABORATORY [facility] 57[address] - [address] [place] [address]
--- OUTSIDE RECORDS SUMMARY | 2024-03-19 07:49 | External Medical Summary ---
Author Name Unknown Address Unknown Organization K01[place] [facility] [place] [address] [place] [address] Laboratory Report Ordering Provider Test Date Status BRIDGETTE MCFADDEN 12/26/2023 10:38:27 Final Observation Date Value Abnormality Reference (Units ) Status Iron 12/26/2023 10:38:27 51 33-151 (ug/dL) Final Iron-binding capacity 12/26/2023 10:38:27 504 Above high normal 250-425 (ug/dL) Final Transferrin Sat % 12/26/2023 10:38:27 10 Below low normal 15-55 (%) Final Performing Location [place] [facility] [place] [address] [place] [address]
--- OUTSIDE RECORDS SUMMARY | 2024-03-19 07:49 | External Medical Summary ---
Author Name Unknown Address Unknown Organization K01:[place] [facility] [place] [address] [facility] [address] Laboratory Report Ordering Provider Test Date Status BRIDGETTE MCFADDEN 12/29/2023 07:48:16 Final Based on ACOG guideline, ges tational diabetes mellitus is diagnosed when any of the following is met:
Fasting is greater than or equal to 95 mg/dL
1 hour is greater than or equal to 180 mg/dL
2 hour is greater than or equal to 155 mg/dL
3 hour is greater than or equal to 140 mg/dL Observation Date Value Abnormality Reference (Units ) Status Glucose, fasting 12/29/2023 07:48:16 82 70- 94 (mg/dL) Final Performing Location [facility] [address] [facility] [address]
--- OUTSIDE RECORDS SUMMARY | 2024-03-19 07:49 | External Medical Summary | Summary of Care ---
Author Name Unknown Organization [facility] Address [address] [facility] [place] [address] Phone [phone] Care Team Providers Care Restaurant General Manager Name Role Phone Unavailable Primary Care Provider Unavailabl e Reason for Visit * Reason Onset Date Comments Test Results 12/28/2023 Encounter Details Date Type Department Care Team (Late st Contact Info) Description 12/28/2023 Telephone [facility] [address] [place] [address] Rosemarie Perez PA-C [address] [place] [address] Test Results Allergies No known active allergiesdocumented as of this encounter (statuses as of 12/29/2023) Medications Medication Sig Dispensed Refills Start Date End Date Status 28-0.8 MG Oral Tablet Take by mouth. Active Nystatin-Triamcinolon e 831882-0.1 UNIT/GM-% External Cream (Mycolog) Apply topically to [...] patient be offered MSAFP-only screening through the turret punch operator's office, at 15-22 weeks gestation (preferably [...] money to get more. Never true 01/18/2023 [place] Depression Scale Answer Date Recorded Last EPDS [...] encounter Miscellaneous Notes * Telephone Encounter - Rosemarie Perez PA-C [...] 8:41 AM EDT Call received from lab @[facility]. Pt got sick during 3hr GTT. Please place order again. Pt aware to reschedule * Telephone Encounter - Adriana Modi RN - 12/28/2023 3:25 PM EDT GLUCOSE - [facility] Date/Time Value Ref Range Status 10/14/2023 07:52 AM 83 70 - 120 mg/dL Final Patient notified of abnormal glucola. The order has been placed in [facility]. Patient. advised to be NPO after 10pm the night before the test.The patient must stay on the premises for the entire time of the test. Patient counseled to take something to eat for after testing. [facility]. Pt aware of need [...] 01/09/2024 9:30 AM EDT Office Visit Gynecology/Obstetrics [facility] [address] [facility] [place] [address] Ashleigh Garcia CNM [address] [facility] [place] [address] 02/16/2024 2:30 PM EDT Imaging Maternal Medicine [facility], [address] [place] [phone] Pending Results Name Type Priority Associated Diagnoses [...]
--- OUTSIDE RECORDS SUMMARY | 2024-03-19 07:49 | External Medical Summary ---
Author Name Unknown Address Unknown Organization K01:[facility]ORY [facility] [place] - [facility] [address] [facility] [address] Laboratory Report Ordering Provider Test Date Status BRIDGETTE MCFADDEN 12/26/2023 10:38:27 Final Observation Date Value Abnormality Reference (Units ) Status Retic, % (auto) 12/26/2023 10:38:27 2.36 Above high normal 0.80-1.90 (%) Final Reticulocytes, Absolute 12/26/2023 10:38:27 90.4 31.3-100.1 (K/uL) Final Reticulocyte fraction, immature 12/26/2023 10:38:27 34.8 Above high normal 2.5-20.6 (%) Final Reticulocyte HGB 12/26/2023 10:38:27 29.5 Below low normal 29.7-37.4 (pg) Final Performing Location LABORATORY [facility] [place] [address] [facility] [address]
--- OUTSIDE RECORDS SUMMARY | 2024-03-19 07:49 | External Medical Summary | Summary of Care ---
Author Name Unknown Organization [facility] Address [address] [place] [address] Phone [phone] Care Team Providers Care Distance Learning Coordinator Name Role Phone Unavailable Primary Care Provider Unavailabl e Encounter Details Date Type Department Care Team (Late st Contact Info) Description 10/14/2023 Telephone Gynecology/Obstetrics [facility] [address] [facility] [place] [address] Niki Banerjee PA-C [address] [facility] [place] [address] Allergies No known active allergiesdocumented as of this encounter (statuses as of 10/14/2023) Medications Medication Sig Dispensed Refills Start Date End Date Status 28-0.8 MG Oral Tablet Take by mouth. 0 Active documented as of this encounter (statuses as of 10/14/2023) Active Problems Problem Noted Date Diagnosed Date [...] patient be offered MSAFP-only screening through the mortician investigator's office, at 15-22 weeks gestation (preferably 15-18 [...] as of this encounter (statuses as of 10/14/2023) Immunizations Name Administration Dates Next Due DTP [...] money to get more. Never true 01/18/2023 [place] Depression Scale Answer Date Recorded Last EPDS [...] Telephone Encounter - Francisca Andres LPN - 10/14/2023 4:15 PM EDT ----- Message from Niki Banerjee PA-C sent at 10/14/2023 4:05 PM EDT ----- Patient's CMP WNL. Will continue to monitor. Niki Banerjee PA-C documented in this encounter Plan of Treatment Upcoming Encounters Date Type Department Care Team (Late st Contact Info) Description 11/04/2023 11:15 AM EDT Office Visit Gynecology/Obstetrics Dary Velazquez [address] [place] [address] Rosemarie Perez PA-C [address] [place] [address] 11/11/2023 12:30 PM EDT Office Visit Plate Maker Obstetrics Maternal Medicine, [place] [address] [facility] [place] [address] Ricky Quiroz DO [address] [place] [address] 11/11/2023 12:30 PM EDT [facility] [address] [facility] [place] [address] Health Maintenance Due Date Last Done Comments [...]
--- OUTSIDE RECORDS SUMMARY | 2024-03-19 07:49 | External Medical Summary ---
Author Name Unknown Address Unknown Organization K01:[place] [facility] [place] [address] [place] [facility] [place] [address] Laboratory Report Ordering Provider Test Date Status BOGDANBRIDGETTE 12/26/2023 10:38:27 Final Observation Date Value Abnormality Reference (Units ) Status SYNC LEUKOCYTES IN BLOOD BY AUTOMATED COUNT 12/26/2023 10:38:27 11.85 Above high normal 4.00-10.80 (K/uL) Final Segs 12/26/2023 10:38:27 72.8 40.0-75.0 (%) Final Lymphs % 12/26/2023 10:38:27 19.7 18.0-42.0 (%) Final Monos 12/26/2023 10:38:27 6.1 1.0-11.0 (%) Final Eosinophils 12/26/2023 10:38:27 0.4 0.0-6.0 (%) Final Basos 12/26/2023 10:38:27 0.2 0.0-2.0 (%) Final Immature Granulocyte, Percent 12/26/2023 10:38:27 0.8 0.0-2.0 (%) Final Absolute Segs 12/26/2023 10:38:27 8.62 Above high normal 1.80-7.70 (K/uL) Final Lymphs, absolute 12/26/2023 10:38:27 2.34 1.00-4.80 (K/ul) Final Monos, Abs 12/26/2023 10:38:27 0.72 0.00-1.10 (K/uL) Final Eos, Abs 12/26/2023 10:38:27 0.05 0.00-0.70 (K/uL) Final Basos, Abs 12/26/2023 10:38:27 0.02 0.00-0.20 (K/uL) Final Immature Granulocytes, Number 12/26/2023 10:38:27 0.10 0.00-0.20 (K/uL) Final Performing Location [place] [facility] [place] [address] [facility] [address]
--- OUTSIDE RECORDS SUMMARY | 2024-03-19 07:49 | External Medical Summary ---
Author Name Unknown Address Unknown Organization K01:[place] [facility] [place] [facility] [place] [address] Laboratory Report Ordering Provider Test Date Status BRIDGETTE MCFADDEN 12/26/2023 10:38:27 Final Observation Date Value Abnormality Reference (Units ) Status WBC, Total 12/26/2023 10:38:27 11.85 Above high normal 4 .00-10.80 (K/uL) Final RBC 12/26/2023 10:38:27 3.79 3.85-5.15 (M/uL) Final Hemoglobin 12/26/2023 10:38:27 11.5 Below low normal 12 .0-15.3 (g/dL) Final Anemia reflex testing trigge rs on a HGB < 12.0 for Females and HGB < 13.0 for Males in accordance with the WHO Anemia Guidelines
Anemia reflex testing triggers on a HGB < 12.0 for Females and HGB < 13.0 for Males in accordance with the WHO Anemia Guidelines HCT 12/26/2023 10:38:27 36.1 36.0-45.2 (%) Final MCV 12/26/2023 10:38:27 95.3 81.5-97.5 (fL) Final MCH 12/26/2023 10:38:27 30.3 27.0-34.0 (pg) Final MCHC 12/26/2023 10:38:27 31.9 32.0-36.0 (g/dL) Final RDW 12/26/2023 10:38:27 13.0 11.5-15.5 (%) Final Platelets 12/26/2023 10:38:27 304 140-400 (K /uL) Final MPV 12/26/2023 10:38:27 11.7 6.6-11.1 ( fL) Final Nucleated erythrocytes/100 leukocytes [Ratio] in Blood by Automated count 12/26/2023 10:38:27 0 <=0 (/100 WBCs) [facility] Performing Location LAB[facility]ATORY [facility] - [address] [facility] [address]
--- OUTSIDE RECORDS SUMMARY | 2024-03-19 07:49 | External Medical Summary ---
Author Name Unknown Address Unknown Organization K01:[facility]ORY [facility] - [address] [place] [address] Laboratory Report Ordering Provider Test Date Status BRIDGETTE MCFADDEN 12/26/2023 10:38:27 Final Observation Date Value Abnormality Reference (Units ) Status Ferritin 12/26/2023 10:38:27 8 Below low normal 13- 150 (ng/mL) Final Performing Location [facility] - [address] [place] [address]
--- OUTSIDE RECORDS SUMMARY | 2024-03-19 07:50 | External Medical Summary | Summary of Care ---
Author Name Unknown Organization [facility] Address [address] [place] [address] Phone [phone] Care Team Providers Care Director Of Infection Prevention Name Role Phone Unavailable Primary Care Provider Unavailabl e Reason for Visit * Reason Comments Return Visit Encounter Details Date Type Department Care Team (Late st Contact Info) Description 10/13/2023 3:45 PM EDT Office Visit Gynecology/Obstetric s [facility] [address] [facility] [place] [address] Niki Banerjee PA-C [address] [facility] [place] [address] Normal intrauterine , antepartum*; Rh negative, antepartum; Family history of Marfan syndrome; Pruritus of in second trimester Allergies No known active allergiesdocumented as of this encounter (statuses as of 10/13/2023) Medications Medication Sig Dispensed Refills Start Date End Date Status 28-0.8 MG Oral Tablet Take by mouth. 0 Active documented as of this encounter (statuses as of 10/13/2023) Active Problems Problem Noted Date Diagnosed Date [...] patient be offered MSAFP-only screening through the gelatin powder mixer's office, at 15-22 weeks gestation (preferably 15-18 [...] as of this encounter (statuses as of 10/13/2023) Immunizations Name Administration Dates Next Due DTP [...] money to get more. Never true 01/18/2023 [place] Depression Scale Answer Date Recorded Last EPDS [...] Sign Reading Time Taken Comments Blood Pressure 100/67 10/13/2023 3:38 PM EDT Pulse - - Temperature - - Respiratory Rate - - Oxygen Saturation - - Inhaled Oxygen Concentration - - Weight 56.2 kg (124 lb) 10/13/2023 3:38 PM EDT Height - - Body Mass Index 21.28 08/15/2023 9:39 AM EDT documented in this encounter Progress Notes * Francisca Andres LPN - 10/13/2023 3:38 PM EDT Pt is currently 17w0d with an Estimated Date of Delivery: 03/22/24 - * Niki Banerjee PA-C - 10/13/2023 3:37 PM EDT Yari Shen is a 23 year old female here for her routine OB appointment at 17w0d Her Estimated Date of Delivery: 03/22/24 [facility] recommended echocardiogram which patient is planning to schedule the same day as her anatomy scan. She is reporting nausea, without vomiting, that has been unchanged throughout her . She also mentions heartburn. Over the last week, she describes an itching and rash that starts on her stomach and extends to herentire body, including her palms and soles. She describes the rash as red and blotchy. She denies using any new products. She has tried Cerave and other sensitive moisturizers without relief. She denies that the itching is related to meals. She does report she has a history of sensitive skin in the past. REVIEW OF SYSTEMS She denies movement. She has no concerns at this time. Denies vaginal bleeding, LOF, contractions, headaches, vision changes, chest pain, deep calf pain. PHYSICAL EXAM Filed Vitals: 10/13/23 1538 BP: 100/67 Weight: 56.2 kg (124 lb) +FHT 140s ASSESSMENT/PLAN Normal intrauterine , antepartum (Primary) Rh negative, antepartum Family history of Marfan syndrome Pruritus of in second trimester - COMPREHENSIVE METABOLIC PANEL - To evaluate bilirubin in the setting of increased itching in . Patient also reassured that this can be a normal reaction. Encouraged sensitive, unscented soaps, detergents, and moisturizers for relief. Supervision of - anatomy u/s due in 3 weeks. Patient is scheduled for this with [facility] 11/10. - discussed MSAFP and role in detecting open neural tube defects. Patient declines RTO in 4 weeks Niki Banerjee PA-C 10/13/2023 documented in this encounter Plan of Treatment Upcoming Encounters Date Type Department Care Team (Late st Contact Info) Description 11/11/2023 7:45 AM EDT Office Visit Gynecology/Obstetrics Dary Velazquez [address] [place] [address] Rosemarie Perez PA-C [address] [place] [address] 11/11/2023 12:30 PM EDT Office Visit Rn Progressive Care Obstetrics [facility] [place] [address] [place] [address] Ricky Quiroz, [address] [place] [address] 11/11/2023 12:30 PM EDT Imaging Radiology [facility] [place] [address] [place] [address] Scheduled Orders Name Type Priority Associated Diagnoses Orde r Schedule COMPREHENSIVE METABOLIC PANEL Lab Routine Pruritus of in second trimester Ordered: 10/13/2023 Health Maintenance Due Date Last Done Comments [...] 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
--- OUTSIDE RECORDS SUMMARY | 2024-03-19 07:50 | External Medical Summary ---
Author Name Unknown Address Unknown Organization [id number]:LAB[facility]ATORY [facility] - [address] [facility] [place] [address] Laboratory Report Ordering Provider Test Date Status TERELL HERNANDEZ 10/14/2023 07:52:41 Final Observation Date Value Abnormality Reference (Units ) Status BUN 10/14/2023 07:52:41 9 6-20 (mg/dL) Final Creatinine 10/14/2023 07:52:41 0.7 0.5-1.0 (mg/dL) Final Glomerular filtration rate/1.73 sq M.predicted [Volume Rate/Area] in Serum, Plasma or Blood by Creatinine-based formula (CKD-EPI) 10/14/2023 07:52:41 >90 >=60 (mL/min) Final eGFR is calculated based on the CKD-EPI 2020 equation Sodium 10/14/2023 07:52:41 136 135-146 (m mol/L) Final Potassium 10/14/2023 07:52:41 3.9 3.5-5.1 (m mol/L) Final Cl 10/14/2023 07:52:41 101 98-107 (mm ol/L) Final CO2 10/14/2023 07:52:41 24 22-32 (mmo l/L) Final Anion gap 10/14/2023 07:52:41 11 7-15 (mmol /L) Final Glucose 10/14/2023 07:52:41 83 70-120 (mg /dL) Final Albumin 10/14/2023 07:52:41 4.1 3.8-5.0 (g /dL) Final AST (Aspartate aminotransferase) 10/14/2023 07:52:41 15 10-35 (U/L) Final Alk Phos 10/14/2023 07:52:41 85 35-130 (U/ L) Final Bilirubin, Total 10/14/2023 07:52:41 0.2 <=1 .2 (mg/dL) Final Calcium 10/14/2023 07:52:41 9.5 8.4-10.2 ( mg/dL) Final Protein 10/14/2023 07:52:41 6.5 6.0-8.3 (g /dL) Final ALT (Alanine aminotransferase) 10/14/2023 07:52:41 14 10-35 (U/L) Final Performing Location [facility]ORY [facility] [place] - [address] [facility] [address]
--- OUTSIDE RECORDS SUMMARY | 2024-03-19 07:50 | External Medical Summary | Summary of Care ---
Author Name Unknown Organization [facility] Address [address] [place] [address] Phone [phone] Care Team Providers Care Baggage Agent Supervisor Name Role Phone Unavailable Primary Care Provider Unavailabl e Reason for Visit * Reason Comments Outpatient Testing Encounter Details Date Type Department Care Team (Late st Contact Info) Description 10/14/2023 7:50 AM EDT Laboratory Laboratory, [address] [address] [facility], Lab [address] [place] [address] Arrived Allergies No known active allergiesdocumented as [...] patient be offered MSAFP-only screening through the health care liaison's office, at 15-22 weeks gestation (preferably 15-18 [...] money to get more. 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
[2024-03-19] MEDS ORDERED: OXYTOCIN 30 UNITS/NSS 30 UNITS/500 ML BAG IV PRN (08:20)
[2024-03-19] MEDS ORDERED: CALCIUM CARBONATE 500 MG CHEWABLE TAB PO PRN (08:20)
[2024-03-19] MEDS ORDERED: LACTATED RINGER'S 1,000 ML IV PRN (08:20)
[2024-03-19] MEDS ORDERED: LIDOCAINE 1% LOCAL 20 ML VIAL INFIL PRN (08:20)
[2024-03-19] MEDS ORDERED: PENICILLIN GK 6 MU in DEXTROSE 5% 250 ML IV STA (08:25)
[2024-03-19] MEDS: DINOPROSTONE 10 MG INSERT PV ONE (08:46)
--- NOTE | 2024-03-19 09:04 | History & Physical Report ---
Date of Service March 19, 2024 Assessment & Plan (1) with 39 completed weeks gestation: Plan: 23-year-old G1, P0 at 39 weeks and 4 days of gestation presenting today for scheduled rest of labor due to discomfort of and nausea, vital signs stable afebrile, heart rate reassuring, Cervix unfavorable, GBS positive, Plan to admit, monitor, labs, Cervidil for cervical ripening, start penicillin when in labor, Patient understands the process of induction and all questions were answered. (2) Positive GBS test: (3) Rh D negative blood type: (4) Abnormal glucose in , antepartum: Admission and Anticipated Discharge Date Admission Date: March 19, 2024 History of Present Illness Primary Care Provider: Michelle Jones MD Patient is a 23-year-old at 39 weeks and 4 days of gestation who was scheduled for induction of labor at term. She has no complaints. She denies contractions, leakage of fluid, vaginal bleeding. She reports good movements. She denies headaches, change in vision, nausea vomiting, epigastric or right upper quadrant pain, fever nor chills. Her has been complicated by, 1. GBS positive, 2. Rh-, 3. Father of baby with family history of Marfan syndrome, echo has been normal, NIPT testing with low risk, patient plans to have ped genetics consultation after delivery, 4. Abnormal Glucola, 50 g with result of 144 mg/dL, patient could not tolerate 3-hour OGTT, fingerstick glucose levels for 2 weeks were within normal limits. Allergies Allergy/AdvReac Type Severity Reaction Status Date / Time No Known Allergies Allergy Unverified 03/19/24 08:06 Home Medications Medication Instructions Recorded Confirmed Type vitamin-ferrous 1 tab PO DAILY 03/19/24 03/19/24 History sulfate-folic acid 27 mg-0.3 mg tablet Patient History Medical History Scoliosis Surgical History [place] teeth removed Social History Smoking Status: Never smoker Hx Alcohol Use: No Hx Substance Use: No Preferred Language: Belarusian Communication Ability: Effective Vault Manager Required: No Beliefs That Will Affect Care: None marital status: Single Current Living Situation: Significant Other Current Living Situation Comment: Dimitry Other Information That Helps Us Care for You: No Feels Safe at Home: Yes Safety Concerns: Feels Safe At This Time 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 no 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 of STDs, no history of chlamydia, gonorrhea, herpes Review of Systems as per Subjective / HPI Physical Exam Gastrointestinal (Abdomen): normal bowel sounds, soft, nontender, no hepatosplenomegaly ( gravid, Branden 7 to 8 pounds) Genitourinary: normal external appearance OB Exam Abdomen: + vertex ( confirmed by bedside ultrasound) Manual OB Exam: + cervical dilation (0), + cervical effacement (o) and + station high ( -4) OB Exam Monitor Tracing: + external uterine monitor used and + category I Results & Data Vital Signs (Past 12 Hours) Vital Signs Temp Pulse Resp BP 03/19/24 07:55 90 03/19/24 07:55 137/87 03/19/24 07:51 36.7 C 20 03/19/24 07:47 99 H 140/102 H
[2024-03-19 09:10] LABS: Hematocrit (blood only) 32.6 % (37.0-47.0); Hemoglobin 10.5 g/dl (12.0-16.0); Mean Corpuscular Hemoglobin 25.8 pg (25.0-34.0); Mean Corpuscular Hgb Conc 32.2 g/dL (32.0-36.0); Mean Corpuscular Volume 80.1 fL (80.0-100.0); Mean Platelet Volume 11.9 fL (9.4-12.4); Platelet Count 258 K/uL (130-400); RDW Coefficient of Variation 15.6 % (11.5-14.5); RDW Standard Deviation 44.8 fL (36.4-46.3); Red Blood Count 4.07 M/uL (4.20-5.40); White Blood Count 10.34 K/ul (4.8-10.8)
[2024-03-19 09:27] LABS: Albumin Globulin Ratio 1.2 (0.9-2); Albumin Level 3.3 gm/dl (3.4-5.0); BUN Creatinine Ratio 17.4 (10-20); Bilirubin,Total 0.4 mg/dl (0.2-1.0); Creatinine Clr Calc Pharmacy 124.9 ml/min; Globulin 2.7 gm/dl (2.5-4.0); Potassium 3.7 mmol/L (3.5-5.1)
[2024-03-19] MEDS ORDERED: PENICILLIN GK 3 MU in DEXTROSE 5% 100 ML IV PRN (11:20)
--- NOTE | 2024-03-19 15:24 | Obstetrical Progress Note ---
Date of Service March 19, 2024 Assessment & Plan Admission and Anticipated Discharge Date Admission Date: March 19, 2024 Subjective Patient is reevaluated. She feels mild cramps, not painful No LOF/VB +FM FHR categ I [place] ctxs q 3-4 min Continue to monitor Results & Data Vital Signs (Past 12 Hours) Vital Signs Temp Pulse Resp BP 03/19/24 15:20 93 H 03/19/24 15:20 119/88 03/19/24 15:09 86 03/19/24 15:09 135/90 03/19/24 14:02 20 03/19/24 14:02 36.7 C 20 03/19/24 14:02 91 H 03/19/24 14:02 134/88 03/19/24 12:03 90 03/19/24 12:03 145/86 H 03/19/24 12:02 20 03/19/24 12:02 36.7 C 20 03/19/24 10:07 84 03/19/24 10:07 108/62 03/19/24 07:55 90 03/19/24 07:55 137/87 03/19/24 07:51 36.7 C 20 03/19/24 07:47 99 H 140/102 H
[2024-03-19] MEDS: ACETAMINOPHEN 325 MG TAB PO PRN (19:32)
--- NOTE | 2024-03-19 22:31 | Obstetrical Progress Note ---
Date of Service March 19, 2024 Assessment & Plan Admission and Anticipated Discharge Date Admission Date: March 19, 2024 Subjective Patient is reevaluated. Cervidil was removed at 20:52 She started to have back pain and more abdominal cramping for the last half an hour. Pain is 8/10 VE: ft/ 50%/ -3 FHR categ I [place]: ctxs q2-4 min Continue to monitor Stadol for pain Continue with cervical ripening Results & Data Vital Signs (Past 12 Hours) Vital Signs Temp Pulse Resp BP 03/19/24 19:02 18 03/19/24 19:02 36.8 C 18 03/19/24 19:02 90 03/19/24 19:02 131/79 03/19/24 15:31 86 03/19/24 15:31 128/85 03/19/24 15:20 93 H 03/19/24 15:20 119/88 03/19/24 15:10 36.8 C 03/19/24 15:09 20 03/19/24 15:09 86 03/19/24 15:09 135/90 03/19/24 14:02 20 03/19/24 14:02 36.7 C 20 03/19/24 14:02 91 H 03/19/24 14:02 134/88 03/19/24 12:03 90 03/19/24 12:03 145/86 H 03/19/24 12:02 20 03/19/24 12:02 36.7 C 20
[2024-03-19] MEDS: BUTORPHANOL TARTRATE 2 MG/ML VIAL IV PRN (22:47)
[2024-03-20] MEDS: miSOPROStoL 50 MCG TAB PO SCH
[2024-03-20 07:34] VITALS: RESP 20; TEMP 97.5
[2024-03-20 08:09] VITALS: PULSE 92
[2024-03-20 10:30] VITALS: BP 128/89
--- NOTE | 2024-03-20 10:57 | Labor Progress Brief Note ---
Date of Service March 20, 2024 Subjective Reason For Note: Routine Evaluation patient on day 2 of elective induction of labor. Assessment & Plan Admission and Anticipated Discharge Date Admission Date: March 19, 2024 Physical Exam Constitutional: WD/WN, vitals as above Musculoskeletal: Extremities: extremities normal to inspection Genitourinary: OB Exam Abdomen: + fundal height and + vertex OB Exam Monitor Tracing: + external FHT monitor used, + external uterine monitor used, + category I and + normal FHT variability Cervix closed/thick/-3/posterior/firm She has an un-inducible cervix at this point in time so I gave her several options to consider including to continue the induction with further ripening agents such as Cervidil or Cytotec with Champagne balloon as option when able to be inserted. I also gave her the option to go home since this is an elective induction with no medical indications and an unripe cervix. Patient and her spouse decided to opt for going home and see if she goes into labor on her own or wait to be induced when cervix ripe or when medically indicated. She will have an appointment this week in the office for a follow up. Results & Data Vital Signs (Past 12 Hours) Vital Signs Temp Pulse Resp BP 03/20/24 10:29 92 H 128/89 03/20/24 08:08 92 H 133/95 03/20/24 07:59 90 132/90 03/20/24 07:48 94 H 130/87 03/20/24 07:38 88 129/87 03/20/24 07:27 36.4 C L 90 20 131/90 03/20/24 02:37 36.9 C 100 H 18 139/94 03/19/24 23:00 36.8 C
== END 2024-03-20 11:00 | disposition home or self-care (01) | DRG 833 ==
LOC: INTOOBSV 07:37 → 4S1 07:37

== ENCOUNTER 2024-03-22 03:59 | Inpatient (IN) ==
[2024-03-22] MEDS ORDERED: ACETAMINOPHEN 325 MG TAB PO PRN ×2 (04:28→22:28)
[2024-03-22] MEDS ORDERED: LIDOCAINE 1% LOCAL 20 ML VIAL INFIL PRN (04:28)
--- NOTE | 2024-03-22 04:34 | History & Physical Report ---
Date of Service March 22, 2024 Assessment & Plan (1) Abnormal glucose in , antepartum: (2) Rh D negative blood type: (3) Positive GBS test: (4) Spontaneous rupture of amniotic membranes: Plan: 23-year-old G1, P0 at 40 weeks of gestation presenting today with spontaneous rupture of membranes at term, vital signs stable afebrile, heart rate reassuring, GBS positive, Having irregular mild contractions, Plan to admit, monitor, labs, augment with low-dose Pitocin per protocol, penicillin for GBS, Patient understands all and agrees with plan, all questions were answered. History of Present Illness Primary Care Provider: Michelle Jones MD Patient is a 23-year-old at 40 weeks of gestation who Has been leaking clear fluid since 2:40 AM this morning. She had 2 large gushes and trickling fluid since then. She has no other complaints. she has been having irregular mild contractions since she was discharged on the March 20. She denies Abdominal pain, vaginal bleeding. She reports good movements. She denies headaches, change in vision, nausea vomiting, epigastric or right upper quadrant pain, fever nor chills. Her has been complicated by, 1. GBS positive, 2. Rh-, 3. Father of baby with family history of Marfan syndrome, echo has been normal, NIPT testing with low risk, patient plans to have ped genetics consultation after delivery, 4. Abnormal Glucola, 50 g with result of 144 mg/dL, patient could not tolerate 3-hour OGTT, fingerstick glucose levels for 2 weeks were within normal limits. Allergies Allergy/AdvReac Type Severity Reaction Status Date / Time No Known Allergies Allergy Unverified 03/19/24 08:06 Home Medications Medication Instructions Recorded Confirmed Type vitamin-ferrous 1 tab PO DAILY 03/19/24 03/22/24 History sulfate-folic acid 27 mg-0.3 mg tablet Patient History Medical History Scoliosis Surgical History [place] teeth removed Family History Mother Diabetes Father Hypertension Grandfather (Paternal) Cardiac disease Bladder cancer Social History Smoking Status: Never smoker Hx Alcohol Use: No Hx Substance Use: No Preferred Language: Polish Communication Ability: Effective Tile Fitter Required: No Beliefs That Will Affect Care: None marital status: Single Current Living Situation: Significant Other Current Living Situation Comment: Dimitry Smith current occupational status: employed current occupation: [employer] Other Information That Helps Us Care for You: No Feels Safe at Home: Yes Safety Concerns: Feels Safe At This Time 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 STDs, no history of chlamydia, gonorrhea, herpes Review of Systems as per Subjective / HPI Physical Exam Constitutional: WD/WN, vitals as above well developed, well nourished and comfortable Gastrointestinal (Abdomen): normal bowel sounds, soft, nontender, no hepatosplenomegaly Genitourinary: normal external appearance ( grossly leaking, nitrazine positive) OB Exam Abdomen: + vertex Manual OB Exam: + cervical dilation 1 cm (1-2), + cervical effacement 40% and + station -2 OB Exam Monitor Tracing: + external uterine monitor used and + category I Results & Data Vital Signs (Past 12 Hours) Vital Signs Temp Pulse Resp BP 03/22/24 04:12 96 H 131/93 03/22/24 04:10 36.8 C 18 03/22/24 04:05 93 H 140/96
[2024-03-22] MEDS: PENICILLIN GK 6 MU in DEXTROSE 5% 250 ML IV STA (05:16)
[2024-03-22] MEDS: OXYTOCIN 30 UNITS/NSS 30 UNITS/500 ML BAG IV PRN ×2 (05:17→22:12)
[2024-03-22 05:20] LABS: Hematocrit (blood only) 35.8 % (37.0-47.0); Hemoglobin 11.2 g/dl (12.0-16.0); Mean Corpuscular Hemoglobin 25.5 pg (25.0-34.0); Mean Corpuscular Hgb Conc 31.3 g/dL (32.0-36.0); Mean Corpuscular Volume 81.5 fL (80.0-100.0); Mean Platelet Volume 11.6 fL (9.4-12.4); Platelet Count 274 K/uL (130-400); RDW Coefficient of Variation 15.7 % (11.5-14.5); RDW Standard Deviation 45.8 fL (36.4-46.3); Red Blood Count 4.39 M/uL (4.20-5.40); White Blood Count 11.87 K/ul (4.8-10.8)
[2024-03-22 05:29] LABS: Albumin Globulin Ratio 1.1 (0.9-2); Albumin Level 3.4 gm/dl (3.4-5.0); BUN Creatinine Ratio 18.3 (10-20); Bilirubin,Total 0.3 mg/dl (0.2-1.0); Calcium 9.3 mg/dl (8.6-10.3); Creatinine Clr Calc Pharmacy 140.5 ml/min; Potassium 3.7 mmol/L (3.5-5.1); Total Protein 6.4 gm/dl (6.0-8.3)
[2024-03-22] MEDS: CALCIUM CARBONATE 500 MG CHEWABLE TAB PO PRN (05:33)
[2024-03-22] MEDS: LACTATED RINGER'S 1,000 ML IV PRN (06:16)
[2024-03-22] MEDS: BUTORPHANOL TARTRATE 2 MG/ML VIAL IV ONE (08:48)
[2024-03-22] MEDS: PENICILLIN GK 3 MU in DEXTROSE 5% 100 ML IV PRN (08:50)
[2024-03-22] MEDS ORDERED: ePHEDrine sulfate 50 MG/ML AMP ONE (10:41)
[2024-03-22] MEDS ORDERED: NALOXONE HCL 0.4 MG/1 ML VIAL/CARP IV PRN (10:56)
[2024-03-22] MEDS ORDERED: SODIUM CHLORIDE 0.9% PF INJ 10 ML VIAL EPI PRN (10:56)
[2024-03-22] MEDS ORDERED: diphenhydrAMINE 50 MG/ML VIAL IV PRN (10:56)
[2024-03-22] MEDS ORDERED: NALOXONE HCL 1 MG in SODIUM CHLORIDE 0.9% 1,000 ML IV PRN (10:56)
[2024-03-22] MEDS ORDERED: LIDOCAINE 2% MPF LOCAL 5 ML VIAL EPI PRN (10:56)
[2024-03-22] MEDS ORDERED: NALBUPHINE HCL INJ 10 MG/ML AMP IV PRN (10:56)
[2024-03-22] MEDS ORDERED: ePHEDrine sulfate 50 MG/ML AMP IV PRN (10:56)
[2024-03-22] MEDS ORDERED: fentaNYL citrate PF 100 MCG/2 ML VIAL EPI PRN (10:56)
[2024-03-22] MEDS ORDERED: BUPIVACAINE 0.25% PF 30 ML VIAL EPI PRN (10:56)
[2024-03-22] MEDS ORDERED: ROPIVACAINE 0.5% PF 5 MG/ML 20 ML VIAL EPI PRN (10:56)
--- NOTE | 2024-03-22 10:56 | Anesthesiology Consultation ---
Date of Service March 22, 2024 Assessment & Plan (1) Encounter for pre-operative examination: Chart Review Chart Review: Patient NOT seen in Pre Admission Testing and Acceptable Risk for Labor Epidural Consults Requested none History Height/Weight Height: 5 ft 3 in Weight: 73.936 kg Allergies Allergy/AdvReac Type Severity Reaction Status Date / Time No Known Allergies Allergy Unverified 03/19/24 08:06 Medications Home Medications Medication Instructions Recorded Confirmed Last Taken vitamin-ferrous 1 tab PO DAILY 03/19/24 03/22/24 03/19/24 09:00 sulfate-folic acid 27 mg-0.3 mg tablet Active Medications Generic Name Dose Route Start Last Admin Trade Name Freq PRN Reason Stop Dose Admin Calcium Carbonate 1,000 mg 03/22/24 04:28 03/22/24 05:33 Calcium Carbonate 500 Mg Chewable Tab PO 04/21/24 04:27 1,000 mg Q8H PRN Administration Indigestion Lactated Ringer's 1,000 mls @ 125 mls/hr 03/22/24 04:28 03/22/24 08:51 Lr IV 03/24/24 04:27 50 mls/hr .Q8H PRN Infusion L&D Protocol Protocol Penicillin G Potassium 3 mu/ 106 mls @ 100 mls/hr 03/22/24 07:28 03/22/24 08:50 Dextrose IV 04/01/24 07:27 100 mls/hr Q4H PRN Administration GBS(+) Until Delivery Oxytocin 30 units in 500 mls @ 1 mls/hr 03/22/24 04:34 03/22/24 08:35 Pitocin 30 Units/Nss IV 03/24/24 04:33 0.06 units/hr .Q24H PRN 1 mls/hr Labor Induction/Augmentation Titration Protocol 0.06 UNITS/HR Past Medical History Medical History Scoliosis Past Family History Family History Mother Diabetes Father Hypertension Grandfather (Paternal) Cardiac disease Bladder cancer Past Surgical History Surgical History [place] teeth removed Social History Smoking Status: Never smoker Hx Alcohol Use: No Hx Substance Use: No Physical Exam Vital Signs Last Vital Signs Temp 98.4 F 03/22/24 08:52 Pulse 85 03/22/24 09:52 Resp 16 03/22/24 09:52 BP 130/91 03/22/24 09:52 Testing Laboratory Results 03/22/24 04:51 03/22/24 04:51
[2024-03-22] MEDS: fentANYL 2 MCG/ML BUPIVacaine 0.125%-NSS 100ML BAG ONE (11:17)
[2024-03-22] MEDS: BUPIVACAINE 0.25% PF 30 ML VIAL ONE (11:18)
[2024-03-22] MEDS: LIDOCAINE 2%/EPINEPHRINE 1:200,000 20 ML PF ONE (11:19)
[2024-03-22] MEDS: fentaNYL citrate PF 100 MCG/2 ML VIAL ONE (11:51)
[2024-03-22] MEDS: SODIUM CHLORIDE 0.9% PF INJ 10 ML VIAL ONE (11:52)
[2024-03-22] MEDS: BUPIVACAINE 0.25% PF 30 ML VIAL EPI STA (11:53)
[2024-03-22] MEDS: LIDOCAINE 2%/EPINEPHRINE 1:200,000 20 ML PF EPI STA (11:53)
[2024-03-22] MEDS: fentaNYL citrate PF 100 MCG/2 ML VIAL EPI STA (11:53)
[2024-03-22] MEDS: SODIUM CHLORIDE 0.9% PF INJ 10 ML VIAL EPI STA (11:54)
[2024-03-22] MEDS: ONDANSETRON INJ 2 MG/ML 2 ML VIAL IV PRN (15:30)
--- OUTSIDE RECORDS SUMMARY | 2024-03-22 15:59 | External Medical Summary | Summary of Care ---
Author Name Unknown Organization [facility] Address [address] [facility] [address] Phone [phone] Care Team Providers Care Leather Finisher Name Role Phone Unavailable Primary Care Provider Unavailabl e Encounter Details Date Type Department Care Team (Late st Contact Info) Description 03/20/2024 Telephone Gynecology/Obstetrics [facility] [address] [place] [address] Rosemarie Perez PA-C [address] [place] [address] Allergies No known active allergiesdocumented as of this encounter (statuses as of 03/20/2024) Medications Medication Sig Dispensed Refills Start Date End Date Status 28-0.8 MG Oral Tablet Take by mouth. Active Iron-Vitamin C 65-125 MG Oral Tablet (Vitron C)Indications:Antepart um anemia complicating Take 1 Tablet by mouth in the morning and 1 Tablet before bedtime. 60 Tablet 3 12/28/2023 Active documented as of this encounter (statuses as of 03/20/2024) Active Problems Problem Noted Date Diagnosed Date EKG abnormality 03/09/2024 Overview: EKG 03/08/2024 d/t dizziness showed on-specific T wave abnormality CONCLUSIONS: Normal sinus rhythm Nonspecific T wave abnormality Abnormal ECG No previous ECGs available Ventricular Rate: 92 Atrial Rate: 92 HI Interval: 130 QRS Duration: 84 QT/QTc: 350/432 ms P-R-T [place]: 33 : 49 : -8 degrees Ask [...] patient be offered MSAFP-only screening through the rock singer's office, at 15-22 weeks gestation (preferably 15-18 [...] as of this encounter (statuses as of 03/20/2024) Immunizations Name Administration Dates Next Due DTP [...] money to get more. Never true 02/17/2024 [place] Depression Scale Answer Date Recorded [place] Depression Scale Total 0 02/17/2024 The thought [...] Telephone Encounter - Gisela Duarte LPN - 03/20/2024 10:56 AM EDT Rosemarie from [facility] called pt needs seen this week for FIDENCIO. Pt was at L[facility]D for elective IOL and pthad no cervical dilation for [address] willett discharged pt and sent her home. documented in this encounter Plan of Treatment Upcoming Encounters Date Type Department Care Team (Late st Contact Info) Description 03/23/2024 11:30 AM EDT Office Visit Gynecology/Obstetrics [facility] Vel[facility] [address] [place] [address] Rosemarie Perez PA-C [address] [place] [address] Health Maintenance Due Date Last Done Comments [...]
--- NOTE | 2024-03-22 18:25 | Labor Progress Brief Note ---
Date of Service March 22, 2024 Assessment & Plan Admission and Anticipated Discharge Date Admission Date: March 22, 2024 Physical Exam Genitourinary: Manual OB Exam: + cervical dilation 4 cm, + cervical effacement 90%, + station -2 and -1 and + amniotic fluid clear OB Exam Monitor Tracing: + external FHT monitor used, + external uterine monitor used, + category I and + normal FHT variability Results & Data Vital Signs (Past 12 Hours) Vital Signs Temp Pulse Resp BP Pulse Ox 03/22/24 18:22 94 H 97 03/22/24 18:21 104 H 91 03/22/24 18:19 95 H 136/93 03/22/24 18:17 102 H 100 03/22/24 18:12 91 H 99 03/22/24 18:07 101 H 97 03/22/24 18:05 99 H 131/86 03/22/24 18:02 100 H 97 03/22/24 17:57 95 H 97 03/22/24 17:52 99 H 97 03/22/24 17:50 95 H 121/83 03/22/24 17:47 89 100 03/22/24 17:42 89 99 03/22/24 17:37 101 H 99 03/22/24 17:36 95 H 120/85 03/22/24 17:32 101 H 97 03/22/24 17:27 107 H 98 03/22/24 17:22 98 H 96 03/22/24 17:20 90 125/90 03/22/24 17:17 103 H 97 03/22/24 17:12 96 H 97 03/22/24 17:07 97 H 98 03/22/24 17:06 36.9 C 91 H 18 131/84 03/22/24 17:02 108 H 98 03/22/24 16:57 87 97 03/22/24 16:52 92 H 98 03/22/24 16:51 93 H 134/88 03/22/24 16:47 100 H 99 03/22/24 16:42 101 H 98 03/22/24 16:39 96 H 93 03/22/24 16:37 101 H 98 03/22/24 16:35 88 130/80 03/22/24 16:32 91 H 99 03/22/24 16:31 89 93 03/22/24 16:27 96 H 99 03/22/24 16:22 96 H 99 03/22/24 16:21 109 H 132/90 03/22/24 16:17 90 99 03/22/24 16:12 101 H 100 03/22/24 16:07 92 H 99 03/22/24 16:06 99 H 18 134/86 03/22/24 16:02 96 H 99 03/22/24 15:57 86 99 03/22/24 15:52 95 H 99 03/22/24 15:49 86 133/83 03/22/24 15:47 87 99 03/22/24 15:42 103 H 99 03/22/24 15:37 101 H 99 03/22/24 15:36 96 H 147/93 H 03/22/24 15:32 99 H 100 03/22/24 15:27 107 H 99 03/22/24 15:22 100 H 100 03/22/24 15:19 93 H 135/85 03/22/24 15:17 90 98 03/22/24 15:12 96 H 99 03/22/24 15:07 91 H 98 03/22/24 15:04 86 126/84 03/22/24 15:02 89 98 03/22/24 14:57 90 99 03/22/24 14:56 18 03/22/24 14:56 36.9 C 18 03/22/24 14:52 90 98 03/22/24 14:51 100 H 126/71 03/22/24 14:49 98 H 93 03/22/24 14:47 102 H 100 03/22/24 14:42 113 H 99 03/22/24 14:41 96 H 139/88 03/22/24 14:37 90 100 03/22/24 14:36 88 120/77 03/22/24 14:32 99 H 100 03/22/24 14:27 89 100 03/22/24 14:22 89 100 03/22/24 14:20 86 118/75 03/22/24 14:17 90 100 03/22/24 14:12 90 100 03/22/24 14:07 85 100 03/22/24 14:04 84 129/80 03/22/24 14:02 88 100 03/22/24 13:57 91 H 99 03/22/24 13:52 99 H 100 03/22/24 13:49 90 122/77 03/22/24 13:47 86 99 03/22/24 13:42 83 99 03/22/24 13:37 82 99 03/22/24 13:35 85 119/75 03/22/24 13:32 84 99 03/22/24 13:27 86 99 03/22/24 13:22 98 H 97 03/22/24 13:20 88 131/90 03/22/24 13:17 97 H 100 03/22/24 13:12 93 H 100 03/22/24 13:09 16 03/22/24 13:09 37.2 C 16 03/22/24 13:07 94 H 99 03/22/24 13:05 96 H 134/87 03/22/24 13:02 93 H 100 03/22/24 12:57 98 H 100 03/22/24 12:52 93 H 100 03/22/24 12:50 96 H 124/90 03/22/24 12:47 97 H 99 03/22/24 12:42 89 99 03/22/24 12:37 96 H 99 03/22/24 12:34 99 H 127/93 03/22/24 12:32 92 H 99 03/22/24 12:27 97 H 99 03/22/24 12:22 98 H 99 03/22/24 12:17 85 99 03/22/24 12:15 90 134/88 03/22/24 12:12 99 H 99 03/22/24 12:10 87 135/84 03/22/24 12:07 98 H 99 03/22/24 12:06 99 H 130/88 03/22/24 12:02 90 99 03/22/24 12:01 83 16 134/83 03/22/24 11:57 86 99 03/22/24 11:56 81 137/85 03/22/24 11:52 88 98 03/22/24 11:50 93 H 131/88 03/22/24 11:47 90 100 03/22/24 11:45 91 H 130/87 03/22/24 11:42 100 03/22/24 11:42 90 03/22/24 11:42 81 130/87 03/22/24 11:37 94 H 99 03/22/24 11:36 86 128/83 10/17/24 11:32 83 99 03/22/24 11:31 93 H 125/85 03/22/24 11:27 83 99 03/22/24 11:26 87 120/81 03/22/24 11:22 89 99 03/22/24 11:20 86 120/74 03/22/24 11:18 92 H 125/79 03/22/24 11:17 87 99 03/22/24 11:16 86 122/81 03/22/24 11:14 86 121/78 03/22/24 11:12 92 H 100 03/22/24 11:07 99 H 99 03/22/24 11:04 104 H 90 03/22/24 11:02 90 100 03/22/24 11:00 22 03/22/24 11:00 37.0 C 22 03/22/24 09:52 85 16 130/91 03/22/24 09:24 88 136/89 03/22/24 08:52 36.9 C 83 16 131/87 03/22/24 08:34 88 135/81 03/22/24 08:31 93 H 177/105 H 03/22/24 07:10 36.7 C 96 H 18 140/95
[2024-03-22] MEDS: fentANYL 2 MCG/ML BUPIVacaine 0.125%-NSS 100ML BAG EPI PRN (19:15)
--- NOTE | 2024-03-22 20:36 | Labor Progress Brief Note ---
Date of Service March 22, 2024 Assessment & Plan Admission and Anticipated Discharge Date Admission Date: March 22, 2024 Physical Exam Genitourinary: Manual OB Exam: + cervical dilation 7 cm, + cervical effacement 100%, + station -1 and + amniotic fluid clear OB Exam Monitor Tracing: + external FHT monitor used, + external uterine monitor used, + category II and + normal FHT variability Results & Data Vital Signs (Past 12 Hours) Vital Signs Temp Pulse Resp BP Pulse Ox 03/22/24 20:32 108 H 100 03/22/24 20:27 99 H 99 03/22/24 20:22 105 H 100 03/22/24 20:20 93 H 134/86 03/22/24 20:17 104 H 97 03/22/24 20:12 99 H 99 03/22/24 20:07 100 H 100 03/22/24 20:05 100 H 137/91 03/22/24 20:02 108 H 100 03/22/24 20:00 108 H 93 03/22/24 19:57 105 H 99 03/22/24 19:52 103 H 98 03/22/24 19:49 92 H 138/95 03/22/24 19:47 103 H 100 03/22/24 19:42 107 H 94 03/22/24 19:37 96 H 100 03/22/24 19:36 104 H 92 03/22/24 19:34 101 H 131/93 03/22/24 19:32 98 H 100 03/22/24 19:27 95 H 100 03/22/24 19:25 99 H 91 03/22/24 19:22 100 H 99 03/22/24 19:20 100 H 127/90 03/22/24 19:17 96 H 98 03/22/24 19:16 107 H 91 03/22/24 19:12 95 H 97 03/22/24 19:10 16 03/22/24 19:10 36.7 C 16 03/22/24 19:07 94 H 96 03/22/24 19:05 91 H 120/80 03/22/24 19:03 100 H 93 03/22/24 19:02 105 H 99 03/22/24 18:57 96 H 97 03/22/24 18:52 99 03/22/24 18:52 99 H 03/22/24 18:52 92 H 91 10/17/24 18:50 110 H 129/80 03/22/24 18:47 107 H 99 03/22/24 18:42 99 H 98 03/22/24 18:37 100 H 100 03/22/24 18:36 96 H 138/96 03/22/24 18:32 105 H 100 03/22/24 18:27 99 H 100 03/22/24 18:22 94 H 97 03/22/24 18:21 104 H 91 03/22/24 18:19 95 H 136/93 03/22/24 18:17 102 H 100 03/22/24 18:12 91 H 99 03/22/24 18:07 101 H 97 03/22/24 18:05 99 H 131/86 03/22/24 18:02 100 H 97 03/22/24 17:57 95 H 97 03/22/24 17:52 99 H 97 03/22/24 17:50 95 H 121/83 03/22/24 17:47 89 100 03/22/24 17:42 89 99 03/22/24 17:37 101 H 99 03/22/24 17:36 95 H 120/85 03/22/24 17:32 101 H 97 03/22/24 17:27 107 H 98 03/22/24 17:22 98 H 96 03/22/24 17:20 90 125/90 03/22/24 17:17 103 H 97 03/22/24 17:12 96 H 97 03/22/24 17:07 97 H 98 03/22/24 17:06 36.9 C 91 H 18 131/84 03/22/24 17:02 108 H 98 03/22/24 16:57 87 97 03/22/24 16:52 92 H 98 03/22/24 16:51 93 H 134/88 03/22/24 16:47 100 H 99 03/22/24 16:42 101 H 98 03/22/24 16:39 96 H 93 03/22/24 16:37 101 H 98 03/22/24 16:35 88 130/80 03/22/24 16:32 91 H 99 03/22/24 16:31 89 93 03/22/24 16:27 96 H 99 03/22/24 16:22 96 H 99 03/22/24 16:21 109 H 132/90 03/22/24 16:17 90 99 03/22/24 16:12 101 H 100 03/22/24 16:07 92 H 99 03/22/24 16:06 99 H 18 134/86 03/22/24 16:02 96 H 99 03/22/24 15:57 86 99 03/22/24 15:52 95 H 99 03/22/24 15:49 86 133/83 03/22/24 15:47 87 99 03/22/24 15:42 103 H 99 03/22/24 15:37 101 H 99 03/22/24 15:36 96 H 147/93 H 03/22/24 15:32 99 H 100 03/22/24 15:27 107 H 99 03/22/24 15:22 100 H 100 03/22/24 15:19 93 H 135/85 03/22/24 15:17 90 98 03/22/24 15:12 96 H 99 03/22/24 15:07 91 H 98 03/22/24 15:04 86 126/84 03/22/24 15:02 89 98 03/22/24 14:57 90 99 03/22/24 14:56 18 03/22/24 14:56 36.9 C 18 03/22/24 14:52 90 98 03/22/24 14:51 100 H 126/71 03/22/24 14:49 98 H 93 03/22/24 14:47 102 H 100 03/22/24 14:42 113 H 99 03/22/24 14:41 96 H 139/88 03/22/24 14:37 90 100 03/22/24 14:36 88 120/77 03/22/24 14:32 99 H 100 03/22/24 14:27 89 100 03/22/24 14:22 89 100 03/22/24 14:20 86 118/75 03/22/24 14:17 90 100 03/22/24 14:12 90 100 03/22/24 14:07 85 100 03/22/24 14:04 84 129/80 03/22/24 14:02 88 100 03/22/24 13:57 91 H 99 03/22/24 13:52 99 H 100 03/22/24 13:49 90 122/77 03/22/24 13:47 86 99 03/22/24 13:42 83 99 03/22/24 13:37 82 99 03/22/24 13:35 85 119/75 03/22/24 13:32 84 99 03/22/24 13:27 86 99 03/22/24 13:22 98 H 97 03/22/24 13:20 88 131/90 03/22/24 13:17 97 H 100 03/22/24 13:12 93 H 100 03/22/24 13:09 16 03/22/24 13:09 37.2 C 16 03/22/24 13:07 94 H 99 03/22/24 13:05 96 H 134/87 03/22/24 13:02 93 H 100 03/22/24 12:57 98 H 100 03/22/24 12:52 93 H 100 03/22/24 12:50 96 H 124/90 03/22/24 12:47 97 H 99 03/22/24 12:42 89 99 03/22/24 12:37 96 H 99 03/22/24 12:34 99 H 127/93 03/22/24 12:32 92 H 99 03/22/24 12:27 97 H 99 03/22/24 12:22 98 H 99 03/22/24 12:17 85 99 03/22/24 12:15 90 134/88 03/22/24 12:12 99 H 99 03/22/24 12:10 87 135/84 03/22/24 12:07 98 H 99 03/22/24 12:06 99 H 130/88 03/22/24 12:02 90 99 03/22/24 12:01 83 16 134/83 03/22/24 11:57 86 99 03/22/24 11:56 81 137/85 03/22/24 11:52 88 98 03/22/24 11:50 93 H 131/88 03/22/24 11:47 90 100 03/22/24 11:45 91 H 130/87 03/22/24 11:42 100 03/22/24 11:42 90 03/22/24 11:42 81 130/87 03/22/24 11:37 94 H 99 03/22/24 11:36 86 128/83 03/22/24 11:32 83 99 03/22/24 11:31 93 H 125/85 03/22/24 11:27 83 99 03/22/24 11:26 87 120/81 03/22/24 11:22 89 99 03/22/24 11:20 86 120/74 03/22/24 11:18 92 H 125/79 03/22/24 11:17 87 99 03/22/24 11:16 86 122/81 03/22/24 11:14 86 121/78 03/22/24 11:12 92 H 100 03/22/24 11:07 99 H 99 03/22/24 11:04 104 H 90 03/22/24 11:02 90 100 03/22/24 11:00 22 03/22/24 11:00 37.0 C 22 03/22/24 09:52 85 16 130/91 03/22/24 09:24 88 136/89 03/22/24 08:52 36.9 C 83 16 131/87
[2024-03-22] MEDS ORDERED: OXYTOCIN 30 UNITS/NSS 30 UNITS/500 ML BAG IV PRN (22:28)
[2024-03-22] MEDS ORDERED: bisacodyL 10 MG SUPP PR PRN (22:28)
[2024-03-22] MEDS ORDERED: BENZOCAINE 20% SPRY 85 APPLN/85 GM CAN EXT PRN (22:28)
[2024-03-22] MEDS ORDERED: HYDROCORTISONE ACETATE 25 MG SUPP PR PRN (22:28)
[2024-03-22] MEDS ORDERED: DIPHTHER/TETAN/PERTUS Vaccine (Tdap, Adol/Adult) 0.5mL IM ONE (22:28)
--- NOTE | 2024-03-22 22:35 | Delivery Summary ---
Vaginal Delivery Summary Date of Service March 22, 2024 Vaginal Delivery Summary live male PAGE over intact perineum with nuchal cord x1 reduced at time of delivery of head. Cord clamped and cut and Apgars 7/8 weight pending. Cord blood obtained followed by spontaneous delivery of intact placenta. Small tear on right side of vagina repaired with one figure of eight 3/0 suture. Final sponge, needle and instrument count are correct. QBL 151 ml. Mom and baby stable.
--- NOTE | 2024-03-22 23:52 | Anesthesia Procedure Note ---
Date of Service March 22, 2024 Anesthesia Post Epidural Note Vital Signs Vital Signs: Temp Pulse Resp BP Pulse Ox 98.2 F 124 H 16 136/86 96 03/22/24 22:55 03/22/24 22:47 03/22/24 22:55 03/22/24 22:26 03/22/24 22:47 Pain Intensity Abdomen: Pain Intensity: 7 Notes Mental Status: alert / awake / arousable and participated in evaluation Nausea / Vomiting: adequately controlled Pain: adequately controlled Airway Patency, RR, SpO2: stable & adequate BP & HR: stable & adequate Hydration State: stable & adequate Neuraxial Anesthesia: was administered and sensory block is resolving Anesthetic Complications: no major complications apparent and Pt Satisfied with anesthetic care Epidural: Removed without complications and With tip intact
[2024-03-23] MEDS: IBUPROFEN 600 MG TAB PO PRN (02:08)
[2024-03-23 07:41] LABS: Hematocrit (blood only) 29.7 % (37.0-47.0); Hemoglobin 9.2 g/dl (12.0-16.0); Mean Corpuscular Hemoglobin 25.6 pg (25.0-34.0); Mean Corpuscular Volume 82.5 fL (80.0-100.0); Platelet Count 208 K/uL (130-400); RDW Standard Deviation 47.1 fL (36.4-46.3)
--- NOTE | 2024-03-23 08:32 | Obstetrical Progress Note ---
Date of Service March 23, 2024 Assessment & Plan Admission and Anticipated Discharge Date Admission Date: March 22, 2024 Subjective Patient is seen and examined. She feels well, no complaints. Ambulating without dizziness Voiding without difficulty Tolerating regular diet with out N&V Bleeding is minimal No fever/ chills/ CP/ SOB/ N&V/ Leg pain Breast feeding without problems Vital Signs Temp Pulse Pulse Resp BP BP Pulse Ox 03/23/24 04:30 36.8 C 65 16 135/82 99 03/23/24 01:00 36.6 C 109 H 16 136/86 99 03/22/24 22:55 16 03/22/24 22:55 36.8 C 16 03/22/24 22:47 124 H 96 03/22/24 22:42 95 03/22/24 22:42 107 H 03/22/24 22:42 105 H 94 03/22/24 22:37 115 H 89 L 03/22/24 22:36 110 H 93 03/22/24 22:32 112 H 88 L 03/22/24 22:27 113 H 91 03/22/24 22:26 122 H 136/86 03/22/24 22:22 111 H 96 03/22/24 22:20 120 H 93 03/22/24 22:17 114 H 96 03/22/24 22:14 111 H 92 03/22/24 22:12 107 H 100 03/22/24 22:09 118 H 93 03/22/24 22:07 124 H 84 L 03/22/24 22:04 111 H 94 03/22/24 22:02 97 H 74 L 03/22/24 21:58 127 H 90 03/22/24 21:57 133 H 81 L 03/22/24 21:52 112 H 98 03/22/24 21:49 114 H 94 03/22/24 21:47 126 H 87 L 03/22/24 21:44 100 H 85 L 03/22/24 21:42 96 H 100 03/22/24 21:37 107 H 99 03/22/24 21:32 101 H 99 03/22/24 21:27 115 H 99 03/22/24 21:22 100 03/22/24 21:22 137 H 03/22/24 21:22 128 H 93 03/22/24 21:17 113 H 98 03/22/24 21:15 109 H 89 L 03/22/24 21:12 105 H 99 03/22/24 21:07 110 H 100 03/22/24 21:06 112 H 134/73 03/22/24 21:02 108 H 99 03/22/24 21:00 36.7 C 03/22/24 20:57 102 H 99 03/22/24 20:52 102 H 98 03/22/24 20:50 99 H 134/85 03/22/24 20:47 107 H 100 03/22/24 20:42 106 H 100 03/22/24 20:37 104 H 98 03/22/24 20:35 103 H 116/83 O2 Del Method 03/23/24 04:30 Room Air 03/23/24 01:00 Room Air 03/22/24 22:55 03/22/24 22:55 03/22/24 22:47 03/22/24 22:42 03/22/24 22:42 03/22/24 22:42 03/22/24 22:37 03/22/24 22:36 03/22/24 22:32 03/22/24 22:27 03/22/24 22:26 03/22/24 22:22 03/22/24 22:20 03/22/24 22:17 03/22/24 22:14 03/22/24 22:12 03/22/24 22:09 03/22/24 22:07 03/22/24 22:04 03/22/24 22:02 03/22/24 21:58 03/22/24 21:57 03/22/24 21:52 03/22/24 21:49 03/22/24 21:47 03/22/24 21:44 03/22/24 21:42 03/22/24 21:37 03/22/24 21:32 03/22/24 21:27 03/22/24 21:22 03/22/24 21:22 03/22/24 21:22 03/22/24 21:17 03/22/24 21:15 03/22/24 21:12 03/22/24 21:07 03/22/24 21:06 03/22/24 21:02 03/22/24 21:00 03/22/24 20:57 03/22/24 20:52 03/22/24 20:50 03/22/24 20:47 03/22/24 20:42 03/22/24 20:37 03/22/24 20:35 Lab Results 03/22/24 03/23/24 Range/Units 04:51 07:11 WBC 11.87 H 17.40 H (4.8-10.8) K/ul RBC 4.39 3.60 L (4.20-5.40) M/uL Hgb 11.2 L 9.2 L (12.0-16.0) g/dl Hct 35.8 L 29.7 L (37.0-47.0) % MCV 81.5 82.5 (80.0-100.0) fL MCH 25.5 25.6 (25.0-34.0) pg MCHC 31.3 L 31.0 L (32.0-36.0) g/dL RDW Std Deviation 45.8 47.1 H (36.4-46.3) fL RDW Coeff of Melchor 15.7 H 16.0 H (11.5-14.5) % Plt Count 274 208 (130-400) K/uL MPV 11.6 12.0 (9.4-12.4) fL Sodium 136 (136-145) mmol/L Potassium 3.7 (3.5-5.1) mmol/L Chloride 108 H (98-107) mmol/L Carbon Dioxide 20 L (21-32) mmol/L Anion Gap 8 (3-11) BUN 11 (6-23) mg/dl Creatinine 0.60 (0.6-1.2) mg/dl Est Cr Clr Drug Dosing 140.5 ml/min eGFR 129.27 BUN/Creatinine Ratio 18.3 (10-20) Glucose 91 (70-99(Fasting)) mg/dl Calcium 9.3 (8.6-10.3) mg/dl Total Bilirubin 0.3 (0.2-1.0) mg/dl AST 16 (13-39) U/L ALT 10 (7-52) U/L Alkaline Phosphatase 203 H (34-104) U/L Total Protein 6.4 (6.0-8.3) gm/dl Albumin 3.4 (3.4-5.0) gm/dl Globulin 3.0 (2.5-4.0) gm/dl Albumin/Globulin Ratio 1.1 (0.9-2) Treponema pallidum Ab Negative (Negative) PE: General: Alert, orientedx3, NAD Abd: soft, NT, fundus firm, below Umbilicus Perineum intact, Lochia rubra minimal Ext; NT, no edema AP: 23 yo s/p , ppd# 1 VSS Afebrile doing well Continue routine care All questions were answered D/C home tomorrow Results & Data Vital Signs (Past 12 Hours) Vital Signs Temp Pulse Pulse Resp BP BP Pulse Ox 03/23/24 04:30 36.8 C 65 16 135/82 99 03/23/24 01:00 36.6 C 109 H 16 136/86 99 03/22/24 22:55 16 03/22/24 22:55 36.8 C 16 03/22/24 22:47 124 H 96 03/22/24 22:42 95 03/22/24 22:42 107 H 03/22/24 22:42 105 H 94 03/22/24 22:37 115 H 89 L 03/22/24 22:36 110 H 93 03/22/24 22:32 112 H 88 L 03/22/24 22:27 113 H 91 03/22/24 22:26 122 H 136/86 03/22/24 22:22 111 H 96 03/22/24 22:20 120 H 93 03/22/24 22:17 114 H 96 03/22/24 22:14 111 H 92 03/22/24 22:12 107 H 100 03/22/24 22:09 118 H 93 03/22/24 22:07 124 H 84 L 03/22/24 22:04 111 H 94 03/22/24 22:02 97 H 74 L 03/22/24 21:58 127 H 90 03/22/24 21:57 133 H 81 L 03/22/24 21:52 112 H 98 03/22/24 21:49 114 H 94 03/22/24 21:47 126 H 87 L 03/22/24 21:44 100 H 85 L 03/22/24 21:42 96 H 100 03/22/24 21:37 107 H 99 03/22/24 21:32 101 H 99 03/22/24 21:27 115 H 99 03/22/24 21:22 100 03/22/24 21:22 137 H 03/22/24 21:22 128 H 93 03/22/24 21:17 113 H 98 03/22/24 21:15 109 H 89 L 03/22/24 21:12 105 H 99 03/22/24 21:07 110 H 100 03/22/24 21:06 112 H 134/73 03/22/24 21:02 108 H 99 03/22/24 21:00 36.7 C 03/22/24 20:57 102 H 99 03/22/24 20:52 102 H 98 03/22/24 20:50 99 H 134/85 03/22/24 20:47 107 H 100 03/22/24 20:42 106 H 100 03/22/24 20:37 104 H 98 03/22/24 20:35 103 H 116/83 03/22/24 20:32 108 H 100 O2 Del Method 03/23/24 04:30 Room Air 03/23/24 01:00 Room Air 03/22/24 22:55 03/22/24 22:55 03/22/24 22:47 03/22/24 22:42 03/22/24 22:42 03/22/24 22:42 03/22/24 22:37 03/22/24 22:36 03/22/24 22:32 03/22/24 22:27 03/22/24 22:26 03/22/24 22:22 03/22/24 22:20 03/22/24 22:17 03/22/24 22:14 03/22/24 22:12 03/22/24 22:09 03/22/24 22:07 03/22/24 22:04 03/22/24 22:02 03/22/24 21:58 03/22/24 21:57 03/22/24 21:52 03/22/24 21:49 03/22/24 21:47 03/22/24 21:44 03/22/24 21:42 03/22/24 21:37 03/22/24 21:32 03/22/24 21:27 03/22/24 21:22 03/22/24 21:22 03/22/24 21:22 03/22/24 21:17 03/22/24 21:15 03/22/24 21:12 03/22/24 21:07 03/22/24 21:06 03/22/24 21:02 03/22/24 21:00 03/22/24 20:57 03/22/24 20:52 03/22/24 20:50 03/22/24 20:47 03/22/24 20:42 03/22/24 20:37 03/22/24 20:35 03/22/24 20:32
[2024-03-23] MEDS: PRENATAL VITAMIN 1 TAB PO SCH (08:48)
[2024-03-23] MEDS: DOCUSATE SODIUM 100 MG CAP PO SCH (08:48)
[2024-03-23] MEDS: FERROUS SULFATE 325 MG TAB PO SCH (08:48)
[2024-03-23] MEDS ORDERED: [UNRECOGNIZED DRUG - OTHER] PO SCH (09:00)
[2024-03-23] MEDS: bisacodyL 5 MG TABEC PO SCH (19:17)
[2024-03-23 20:03] VITALS: TEMP 97.9
[2024-03-24 07:08] LABS: Basophils # (auto) 0.03 K/uL (0.00-0.20); Basophils % (auto) 0.2 %; Eosinophils # (auto) 0.13 K/uL (0.00-0.50); Eosinophils % (auto) 0.9 %; Hematocrit (blood only) 29.2 % (37.0-47.0); Hemoglobin 9.3 g/dl (12.0-16.0); Immature Granulocytes # (auto) 0.08 K/uL (0.01-0.20); Immature Granulocytes % (auto) 0.6 %; Lymphocytes # (auto) 2.45 K/uL (1.20-3.40); Lymphocytes % (auto) 17.8 %; Mean Corpuscular Hemoglobin 26.2 pg (25.0-34.0); Mean Corpuscular Hgb Conc 31.8 g/dL (32.0-36.0); Mean Corpuscular Volume 82.3 fL (80.0-100.0); Mean Platelet Volume 11.9 fL (9.4-12.4); Neutrophils # (auto) 9.99 K/uL (1.40-6.50); Neutrophils % (auto) 72.5 %; Platelet Count 221 K/uL (130-400); RDW Coefficient of Variation 16.2 % (11.5-14.5); RDW Standard Deviation 48.3 fL (36.4-46.3); Red Blood Count 3.55 M/uL (4.20-5.40); White Blood Count 13.78 K/ul (4.8-10.8)
[2024-03-24 07:57] VITALS: BP 133/86; RESP 16; O2SAT 97
--- NOTE | 2024-03-24 09:29 | Obstetrical Progress Note ---
Date of Service March 24, 2024 Assessment & Plan Admission and Anticipated Discharge Date Admission Date: March 22, 2024 Subjective abdomen soft and non tender no calf tenderness ambulating well vaginal bleeding scant hgb 9.3 Results & Data Vital Signs (Past 12 Hours) Vital Signs Temp Pulse Pulse Resp BP Pulse Ox O2 Del Method 03/24/24 07:24 36.6 C 74 16 133/86 97 Room Air 03/23/24 23:18 36.6 C 90 18 111/73 98 Room Air
[2024-03-24 10:48] VITALS: PULSE 90
== END 2024-03-24 12:55 | disposition home health service (06) | DRG 807 ==
LOC: OPB 03:59 → 4S1 04:01 → 4E2 03-23 01:04